=== PATIENT | male | born 1970 | race Caucasian/White ===

== ENCOUNTER 2018-03-07 23:34 | Inpatient (IN) | payer OTHER, MEDICARE ==
[~2018-03-07] VITALS: Ht 188 cm; Wt 104.8 kg
[2018-03-08 00:30] LABS: ABSOLUTE BASOPHIL COUNT 0 /CUMM (0.0-0.2); ABSOLUTE EOSINOPHIL COUNT 0.1 /CUMM (0.0-0.7); ABSOLUTE GRANULOCYTE CT 11.8 /CUMM (1.4-6.5); ABSOLUTE LYMPH COUNT 3.1 /CUMM (1.2-3.4); ABSOLUTE MONOCYTE COUNT 0.7 /CUMM (0.10-0.60); BASOPHIL % 0.2 % (0.0-2.0); EOSINOPHIL % 0.5 % (0-5); GRANULOCYTE % 75.3 % (42.2-75.2); HEMATOCRIT 40.1 % (42-52); MEAN CORPUSCULAR HGB 30.7 PG (27.0-31.0); MEAN CORPUSCULAR HGB CONC 33.2 G/DL (33.0-37.0); MEAN CORPUSCULAR VOLUME 92.5 FL (80.0-94.0); PLATELET COUNT 353 /CUMM (130-400); RED BLOOD CELL CT 4.34 /CUMM (4.70-6.10)
[2018-03-08 00:47] LABS: WHITE BLOOD CELL COUNT 15.7 /CUMM (4.8-10.8)
--- NOTE | 2018-03-08 01:06 | RADIOLOGY REPORT ---
EXAMINATION: CHEST 1 VIEW CLINICAL INFORMATION: Acidosis. Concern for pneumonia. COMPARISON: None. TECHNIQUE: An AP view of the chest is provided. FINDINGS: The cardiac silhouette is not enlarged. The mediastinal and hilar contours are unremarkable. There are neither pleural effusions nor pneumothoraces. There are no consolidations. The osseous structures are unremarkable. IMPRESSION: No evidence for acute disease.
--- NOTE | 2018-03-08 01:09 | History & Physical ---
Ahsan Alba 03/08/18 0109: General Information and HPI MD Statement: I have seen and personally examined ZINA ANTHONY and documented this H&P. The patient is a 47 year old M who presented with a patient stated chief complaint of NAUSEA, VOMITING, AND LOW BLOOD SUGAR. Source of Information: patient Exam Limitations: clinical condition, confusion History of Present Illness: 47-year-old male with past medical history of anxiety, depression, chronic pain, and type 1 diabetes presents with complaints of nausea, vomiting, diarrhea, and hyperglycemia for 1 day. Patient was in his normal state of health until Friday evening, when he endorses having a significant amount of [place] food, after which he was nauseous and vomiting. This continued on Friday, and he also experienced significant hyperglycemia. When he was unable to get his glucose level under control, he called 911 to be taken to the ED. The patient denies any recent cough, congestion, fevers, chills, or any other illness. Denies sick contacts, recent antibiotics, or hospitalizations. Patient also states that his abdomen has been expanding quite rapidly, beginning around 6 to 8 months ago, and that he has an upcoming endoscopy and colonoscopy to explore the cause. In the ED, patient was found to have significantly elevated glucose (>800), elevated K, UA positive for ketones, lactic acid of 6.1, and VBG ph of 6.95. He was admitted to the ICU for management of DKA. 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 Home Primary Language: Danish Smoking Status: Current Everyday Smoker ETOH Use: denies use Illicit Drug Use: denies illicit drug use Functional Ability ADLs Independent: dressing, eating, toileting, bathing. Ambulation: independent IADLs Independent: shopping, housework, finances, food prep, telephone, transportation , medication admin. Review of Systems Review of Systems Constitutional: Reports: see HPI. Denies: chills, diaphoresis, fever, malaise, weakness. EENTM: Reports: no symptoms. Cardiovascular: Reports: no symptoms. Respiratory: Reports: orthopnea, short of breath. Denies: cough. GI: Reports: abdominal pain, bloating, diarrhea, distention, nausea, vomiting. Denies: constipation. Genitourinary: Reports: no symptoms. Musculoskeletal: Reports: no symptoms. Skin: Reports: no symptoms. Neurological/Psychological: Reports: anxiety, depressed. Hematologic/Endocrine: Reports: polydipsia. Immunologic/Allergic: Reports: no symptoms. All Other Systems: Reviewed and Negative Exam & Diagnostic Data Last 24 Hrs of Vital Signs/I&O Vital Signs Date Time Temp Pulse Resp B/P B/P Pulse O2 O2 Flow FiO2 Mean Ox Delivery Rate 03/08 0335 97.7 122 22 104/62 97 Room Air 03/08 0236 96.8 111 22 112/58 98 Room Air 03/08 0137 96.7 110 18 105/55 98 Room Air 03/07 2350 96.7 90 22 168/116 100 Room Air Intake & Output 03/08 0800 03/08 0000 03/07 1600 Intake Total 4000 Output Total 300 Balance 3700 Intake, IV 4000 Output, Urine 300 Patient 232 lb Weight Weight Bed scale Measurement Method Physical Exam General Appearance Alert, Cooperative, Severe Distress Skin No Rashes, No Breakdown, No Significant Lesion Skin Temp/Moisture Exam: Warm/Dry HEENT Atraumatic, PERRLA, EOMI Neck Supple, No JVD, No thryomegaly Cardiovascular Regular Rate, Normal S1, Normal S2, No Murmurs, Gallops, Rubs Lungs Clear to Auscultation, Normal Air Movement Abdomen Soft, No Tenderness, No Hepatospenomegaly, No Masses Neurological Normal Speech, Normal Tone Extremities No Clubbing, No Cyanosis, No Edema Last 24 Hrs of Labs/Pino: Laboratory Tests 03/08/18 0510: Sodium Pending, Potassium Pending, Chloride Pending, Carbon Dioxide Pending, Anion Gap Pending, BUN Pending, Creatinine Pending, Glucose Pending, Lactic Acid Pending, Calcium Pending, Phosphorus Pending, Magnesium Pending, Total Bilirubin Pending, AST Pending, ALT Pending, Troponin I Pending, Albumin Pending, CBC w Diff Pending, WBC Pending, RBC Pending, Hgb Pending, Hct Pending, MCV Pending, MCH Pending, MCHC Pending, RDW Pending, Plt Count Pending, MPV Pending 03/08/18228: Lactic Acid 5.7 H 03/08/18228: Anion Gap 35.01473 H, Estimated GFR 46 L, Glucose 624 *H, Calcium 8.5, Phosphorus 11.1 H, Magnesium 2.3, Total Bilirubin 0.3, AST 40, ALT 64, Albumin 4.0, CBC w Diff MAN DIFF ORDERED, RBC 4.29 L, MCV 91.3, MCH 30.3, MCHC 33.2, RDW 13.6, MPV 9.3, Segmented Neutrophils 70, Band Neutrophils 7 H, Lymphocytes 20 L, Monocytes 3, Platelet Estimate ADEQUATE, Normocytic RBCs VERIFIED, Normochromic RBCs VERIFIED 03/08/18 0015: Urine Opiates Screen < 100, Methadone Screen > 735 H, Barbiturate Screen < 60, Ur Phencyclidine Scrn < 6.00, Amphetamines Screen < 100, U Benzodiazepines Scrn < 85, Urine Cocaine Screen < 50, Urine Cannabis Screen < 5.00, Urinalysis LIGHT H, Urine Color YEL, Urine Clarity CLEAR, Urine pH 6.0, Ur Specific [place] 1.025 , Urine Protein TRACE H, Urine Ketones >=80, Urine Nitrite NEG, Urine Bilirubin NEG@ICTO, Urine Urobilinogen 0.2, Ur Leukocyte Esterase NEG, Ur Microscopic SEDIMENT EXAMINED, Urine WBC 1-3 H, Urine Bacteria MOD H, Hyaline Casts RARE H, Urine Mucus FEW, Urine Hemoglobin SMALL H, Urine Glucose >=1000 H 03/08/18 0005: Bicarbonate Actual 4.7 L, Mixed VBG pH 6.95 L, Mixed VBG pCO2 22 L, Mixed VBG O2 Saturation 63 H, P-50 (Temp Corrected) N, Carboxyhemoglobin 0.8 L, O2 Concentration % RA, Temperature 98.6, Anion Gap 35 H, Estimated GFR 46 L, BUN/ Creatinine Ratio 18.1, Glucose 853 *H, Lactic Acid 6.1 H, Calcium 8.6, Phosphorus 12.4 H, Magnesium 2.4 H, Total Bilirubin 0.5, AST 42, ALT 69, Alkaline Phosphatase 497 H, Troponin I < 0.01, Total Protein 6.9, Albumin 4.3, Globulin 2.6, Albumin/Globulin Ratio 1.7, Lipase 27, PT 11.2, INR 1.03, APTT 29, CBC w Diff NO MAN DIFF REQ, RBC 4.34 L, MCV 92.5, MCH 30.7, MCHC 33.2, RDW 14.0 , MPV 9.0, Gran % 75.3 H, Lymphocytes % 19.9 L, Monocytes % 4.1, Eosinophils % 0.5, Basophils % 0.2, Absolute Granulocytes 11.8 H, Absolute Lymphocytes 3.1, Absolute Monocytes 0.7 H, Absolute Eosinophils 0.1, Absolute Basophils 0, Phlebotomy Draw Site RAC, Serum Alcohol < 10.0, Acetone Level POSITIVE AT 1:32 DIL Microbiology 03/08 526 STOOL: Cryptosporidium Antigen - ORD 03/08 526 STOOL: Giardia Antigen (PINO) - ORD 03/08 526 STOOL: Clostridium difficile Toxin A & B - ORD 03/08 526 STOOL: Stool Culture - ORD 03/08 417 BLOOD: Blood Culture - ORD 03/08 417 BLOOD: Blood Culture - ORD 03/08 345 UPPER RESP: Surveillance Culture - RECD 03/08 345 GI: Surveillance Culture - RECD 03/08 001 URINE ROUT: Urine Culture - RECD Diagnostic Data EKG Results Sinus rhythm, rate 96, prolonged QTc CXR Results No evidence for acute disease. Other Results CT abdomen/pelvis without contrast IMPRESSION: No evidence for acute abdominal or pelvic inflammatory or infectious processes. Small hiatal hernia. Hepatic steatosis. Assessment/Plan Assessment: 47-year-old male with past medical history of anxiety, depression, chronic pain, and type 1 diabetes presents with 1 day of nausea, vomiting hyperglycemia, admitted to [facility] for DKA, electrolyte abnormalities, and upper GI bleed Problem list/plan: DKA -Accu-Cheks every hour Upper GI bleed -Coffee-ground emesis witnessed in the ED coagulopathy Hyperkalemia -6.7 on presentation, given 1g Ca gluc in ED -Improved to 6.0 w/ volume resusc -Trend w/ hydration Elevated creatinine -1.6, uncertain baseline -Suspected prerenal causes from dehydration, dka -Place simms -strict I/O -Trend renal function -Avoid nephrotoxins Chronic conditions - anxiety/depression/chronic pain -Hold home medicines at this time DVT prophylaxis: ALPS only for gi bleed NPO currently Patient is full code As Ranked By This Provider Problem List: 1. DKA (diabetic ketoacidoses) 2. GI bleed Core Measures/Misc (04/06) Sepsis (View protocol) If YES complete Sepsis Event Note If YES complete Sepsis Event Note Raj Victoria MD 03/08/18 0618: General Information and HPI MD Statement: I have seen and personally examined ZINA ANTHONY and documented this H&P. The patient is a 47 year old M who presented with a patient stated chief complaint of nausea, vomiting, and hyperglycemia. Source of Information: patient Exam Limitations: clinical condition, poor historian History of Present Illness: 47 year old male with PMH of anxiety, depression, chronic pain, DM peripheral neuropathy, and type I diabetes presented with complaints of one day of nausea, vomiting, and diarrhea and hyperglycemia. The history is limited by the patient 's clinical condition. He reports one day history of nausea, vomiting, and diarrhea that he attributes to eating [place] food the night before. He also has associated abdominal pain and his vomiting progressed to coffee ground emesis overnight. He states he had six months of increasing abdominal distention and was scheduled for and EGD/colonoscopy as an outpatient. He says he only drinks a couple of shots on holidays but denies other singificant alcohol intake, although his family does report a history of alcohol abuse. He is a pack a day smoker. He lives by himself and just moved from [facility]. He also reports taking NSAIDs recently, approximately 2 pills daily for the past two weeks. His diabetes is managed by Clementina Gilbert at [facility]. He has an insulin pump that delivery 1unit/hr and gives a bolus based on carbohydrates, which he estimates is maybe 30 units per meal but is unsure. He has been admitted for diabetic ketoacidosis once before at [facility]. He sees a Dr. Stone @ [place] for his anxiety and depression and is prescribed buspar, ativan, valproic acid, and zoloft. He takes baclofen and methadone for chronic pain, which he says affects the entire lower half of his body. He comes to the ED in severe distress, tachypneic, diaphoretic, complaining of generalized but mostly abdominal pain with wretching and vomiting. In the ED, he was afebrile, tachycardic and hypertensive, saturating well on room air at presentation. His initial labs were significant for leukocytosis, lactic acidemia, elevated anion gap metabolic acidosis with an undetectable serum bicarbonate, hyperkalemia, hyponatremia, elevated BUN/creatinine, hypermagnesia, hyperphosphatemia, elevated alkaline phosphatase, and hyperglycemia to 850 with his insulin pump running at 1 unit per hour. His insulin pump was discontinued. He was treated with regular insulin IV 10 units x 2, 3L of NS boluses, 1 gram of IV calcium gluconate, reglan, zofran, and morphine. He had an urinalysis with >1000 glucose, 1-3 WBCs, negative nitrites, and negative leukocyte esterase , normal chest x-ray, and an abdominal CT only notable for mild perinephric stranding, with blood and urine cultures performed. He was admitted to critical care for diabetic ketoacidosis, electrolyte abnormalities, and upper GI bleed. Allergies/Medications Compliance With Home Meds: UNKNOWN Past History Medical History Neurological: peripheral neuropathy Psychiatric: anxiety, depression Endocrine: diabetes, diabetic ketoacidosis Surgical History Surgical History: non-contributory Past Family/Social History Family History Relations & Conditions if any Relation not specified for: *No pertinent family history Psychosocial History Where do you live? Home Primary Language: Danish Functional Ability ADLs Independent: dressing, eating, toileting, bathing. Ambulation: independent IADLs Independent: shopping, housework, finances, food prep, telephone, transportation , medication admin. Review of Systems Review of Systems Constitutional: Denies: chills, fever. EENTM: Reports: no symptoms. Cardiovascular: Denies: chest pain, palpitations. Respiratory: Denies: cough, sputum production. GI: Reports: abdominal pain, bloating, diarrhea, distention, nausea, vomiting ( hematemesis). Genitourinary: Denies: dysuria, frequency. Musculoskeletal: Reports: back pain, joint pain. Skin: Reports: no symptoms. Neurological/Psychological: Reports: anxiety, depressed. Hematologic/Endocrine: Reports: polydipsia. Immunologic/Allergic: Reports: no symptoms. All Other Systems: Reviewed and Negative Exam & Diagnostic Data Last 24 Hrs of Vital Signs/I&O Vital Signs Date Time Temp Pulse Resp B/P B/P Pulse O2 O2 Flow FiO2 Mean Ox Delivery Rate 03/08 0335 97.7 122 22 104/62 97 Room Air 03/08 0236 96.8 111 22 112/58 98 Room Air 03/08 0137 96.7 110 18 105/55 98 Room Air 03/07 2350 96.7 90 22 168/116 100 Room Air Intake & Output 03/08 0800 03/08 0000 03/07 1600 Intake Total 7566 Output Total 1100 Balance 6466 Intake, IV 7566 Output, 150 Emesis Output, Urine 950 Patient 105.233 kg Weight Weight Bed scale Measurement Method Physical Exam General Appearance Alert, Cooperative, Severe Distress Skin No Rashes, No Breakdown, No Significant Lesion HEENT Atraumatic, PERRLA, EOMI, dry mucous membranes Cardiovascular Normal S1, Normal S2, No Murmurs, tachycardic Lungs Clear to Auscultation, Normal Air Movement Abdomen Normal Bowel Sounds, Soft, distended, guarding on physical exam, diffusely tender to palpation Neurological nonfocal Extremities No Clubbing, No Cyanosis, No Edema, Normal Pulses Last 24 Hrs of Labs/Pino: Laboratory Tests 03/08/18 0510: Sodium Pending, Potassium Pending, Chloride Pending, Carbon Dioxide Pending, Anion Gap Pending, BUN Pending, Creatinine Pending, Glucose Pending, Lactic Acid Pending, Calcium Pending, Phosphorus Pending, Magnesium Pending, Total Bilirubin Pending, AST Pending, ALT Pending, Troponin I < 0.01, Albumin Pending, CBC w Diff NO MAN DIFF REQ, RBC 4.02 L, MCV 88.7, MCH 30.5, MCHC 34.4, RDW 13.6, MPV 8.8, Gran % 81.2 H, Lymphocytes % 15.1 L, Monocytes % 3.2, Eosinophils % 0, Basophils % 0.5, Absolute Granulocytes 10.9 H, Absolute Lymphocytes 2.0, Absolute Monocytes 0.4, Absolute Eosinophils 0, Absolute Basophils 0.1 03/08/18228: Lactic Acid 5.7 H 03/08/18228: Anion Gap 35.95293 H, Estimated GFR 46 L, Glucose 624 *H, Calcium 8.5, Phosphorus 11.1 H, Magnesium 2.3, Total Bilirubin 0.3, AST 40, ALT 64, Albumin 4.0, CBC w Diff MAN DIFF ORDERED, RBC 4.29 L, MCV 91.3, MCH 30.3, MCHC 33.2, RDW 13.6, MPV 9.3, Segmented Neutrophils 70, Band Neutrophils 7 H, Lymphocytes 20 L, Monocytes 3, Platelet Estimate ADEQUATE, Normocytic RBCs VERIFIED, Normochromic RBCs VERIFIED 03/08/18 0015: Urine Opiates Screen < 100, Methadone Screen > 735 H, Barbiturate Screen < 60, Ur Phencyclidine Scrn < 6.00, Amphetamines Screen < 100, U Benzodiazepines Scrn < 85, Urine Cocaine Screen < 50, Urine Cannabis Screen < 5.00, Urinalysis LIGHT H, Urine Color YEL, Urine Clarity CLEAR, Urine pH 6.0, Ur Specific [place] 1.025 , Urine Protein TRACE H, Urine Ketones >=80, Urine Nitrite NEG, Urine Bilirubin NEG@ICTO, Urine Urobilinogen 0.2, Ur Leukocyte Esterase NEG, Ur Microscopic SEDIMENT EXAMINED, Urine WBC 1-3 H, Urine Bacteria MOD H, Hyaline Casts RARE H, Urine Mucus FEW, Urine Hemoglobin SMALL H, Urine Glucose >=1000 H 03/08/18 0005: Bicarbonate Actual 4.7 L, Mixed VBG pH 6.95 L, Mixed VBG pCO2 22 L, Mixed VBG O2 Saturation 63 H, P-50 (Temp Corrected) N, Carboxyhemoglobin 0.8 L, O2 Concentration % RA, Temperature 98.6, Anion Gap 35 H, Estimated GFR 46 L, BUN/ Creatinine Ratio 18.1, Glucose 853 *H, Lactic Acid 6.1 H, Calcium 8.6, Phosphorus 12.4 H, Magnesium 2.4 H, Total Bilirubin 0.5, AST 42, ALT 69, Alkaline Phosphatase 497 H, Troponin I < 0.01, Total Protein 6.9, Albumin 4.3, Globulin 2.6, Albumin/Globulin Ratio 1.7, Lipase 27, PT 11.2, INR 1.03, APTT 29, CBC w Diff NO MAN DIFF REQ, RBC 4.34 L, MCV 92.5, MCH 30.7, MCHC 33.2, RDW 14.0 , MPV 9.0, Gran % 75.3 H, Lymphocytes % 19.9 L, Monocytes % 4.1, Eosinophils % 0.5, Basophils % 0.2, Absolute Granulocytes 11.8 H, Absolute Lymphocytes 3.1, Absolute Monocytes 0.7 H, Absolute Eosinophils 0.1, Absolute Basophils 0, Phlebotomy Draw Site RAC, Serum Alcohol < 10.0, Acetone Level POSITIVE AT 1:32 DIL Microbiology 03/08 06 URINE ROUT: Urine Culture - CAN Cancelled: Cancelled via OE: DUPLICATE 03/08 603 URINE ROUT: Urine Culture - ORD 03/08 526 STOOL: Cryptosporidium Antigen - ORD 03/08 526 STOOL: Giardia Antigen (PINO) - ORD 03/08 526 STOOL: Clostridium difficile Toxin A & B - ORD 03/08 526 STOOL: Stool Culture - ORD 03/08 417 BLOOD: Blood Culture - ORD 03/08 417 BLOOD: Blood Culture - ORD 03/08 345 UPPER RESP: Surveillance Culture - RECD 03/08 345 GI: Surveillance Culture - RECD 03/08 15 URINE ROUT: Urine Culture - RECD Diagnostic Data EKG Results sinus tachycardia, RAD, no acute ischemic changes CXR Results The cardiac silhouette is not enlarged. The mediastinal and hilar contours are unremarkable. There are neither pleural effusions nor pneumothoraces. There are no consolidations. The osseous structures are unremarkable. IMPRESSION: No evidence for acute disease. Other Results CT abdomen/pelvis without contrast IMPRESSION: No evidence for acute abdominal or pelvic inflammatory or infectious processes. Small hiatal hernia. Hepatic steatosis. Assessment/Plan Assessment: 47 year old male with PMH of anxiety, depression, chronic pain, and type I diabetes presented with complaints of one day of nausea, vomiting, and diarrhea and hyperglycemia, admitted to critical for DKA, electrolyte abormalities, and upper GI bleed. DKA: Serum glucose 850 on presentation, serum bicarbonate undetectable, VBG pH 6.95 Positive acetone, negative for alcohol, anion gap of 35, Intravascular volume resuscitation with crystalloid Received regular insulin 10 units IV x 2 and started on insulin gtt Admit to ICU Accuchecks Q1H Insulin gtt currently at 20 units per hour, patient's home insulin pump discontinued Endocrinology consulted Leukocytosis peaked at 17,00 but now improving to 13,400 off antibiotics No clear source of infection at this time for DKA trigger Urinalysis 1-3 WBCs, negative nitrites and leukocyte esterase, > 1000 glucose Follow up blood and urine cultures Check C diff and stool studies if diarrhea recurrs Chest x-ray and abdominal CT unrevealing Upper GI bleed: Several hundred cc's of witness coffee ground emesis in the ED Possibly peptic ulcer disease with NSAID use, possible varices with EtOH although no stigmata or laboratory evidence consistent with cirrhotic liver disease IV PPI BID No transaminitis, thrombocytopenia or coagulapathy Type and screen Large bore peripheral IV access Gastroenterology consulted Hemoglobin mildly decreased to 13, will continue to trend Ceftriaxone IV 1g x 1 dose Elevated creatinine: Creatinine elevated to 1.6, uncertain baseline Suspected to be prerenal with severe dehydration from DKA Place Simms catheter, Strict I/O's Aggressive intravascular volume resuscitation with crystalloid Obtain urine electrolytes and FeNa Trend renal function Avoid nephrotoxins Elevated anion gap metabolic acidosis and electrolyte abnormalities: Detectable acetone c/w DKA and undetectable bicarbonate, VBG pH 6.95 Tachypneic with compensatory respiratory alkalosis from metabolic acidosis, check ABG Lactic acidemia 6.1 on presentation, improved after intravascular volume resuscitation Thought to be secondary to hypovolemia not sepsis Hyperkalemia: Elevated to 6.7 on presentation, given 1g calcium gluconate in the ED Improved to 6.0 after intravascular volume resuscitation Continue to trend with hydration Pseudohyponatremia: Sodium depressed to 127 with glucose of 850, now improved to 137 with glucose improvement and crystalloid administration Hyperphosphatemia/Hypermagnesia: Will continue to monitor Elevated alkaline phosphatase: Normal CT abdomen pelvis, no abnormalities in biliary system LFTs and bilirubin within normal limits Consider RUQ ultrasound Anxiety/Depression: Hold zoloft, buspar, valproic acid, and lorazepam for now Chronic pain: Hold methadone and baclofen Urine toxicology negative other than methadone Monitor for withdrawal from baclofen, methadone, and lorazepam NPO DVT ppx-mechanical ALPs only for GI bleed Full code As Ranked By This Provider Problem List: 1. GI bleed 2. DKA (diabetic ketoacidoses) Core Measures/Misc (04/06) Acute Coronary Syndrome ACS Diagnosis: No Congestive Heart Failure Congestive Heart Failure Diagnosis No Cerebrovascular Accident CVA/TIA Diagnosis: No VTE (View Protocol) VTE Risk Factors Age>40 No Mechanical VTE Prophylaxis d/t N/A MechProphylax Ordered No VTE Pharm Prophylaxis d/t Bleeding (Active) Sepsis (View protocol) Sepsis Present: No If YES complete Sepsis Event Note If YES complete Sepsis Event Note Rehan Liz MD 03/08/18 0066: General Information and HPI Statement: I have seen and personally examined ZINA ANTHONY and documented this H&P. The patient is a 47 year old M who presented with a patient stated chief complaint of []. Source of Information: patient Exam Limitations: clinical condition, poor historian Allergies/Medications Home Med list Baclofen 10 MG TABLET 1 TAB PO TID PAIN (Reported) Buspirone HCl 30 MG TABLET 1 TAB PO BID PSYCH (Reported) Insulin Aspart (Novolog) 100 UNIT/ML VIAL 1 UNIT SC CONTINOUS INFUSION DM1 ( Reported) Lorazepam (Ativan) 0.5 MG TABLET 1 TAB PO BIDP PRN ANXIETY (Reported) Methadone Hydrochloride (Methadone HCl) 10 MG TABLET 3.5 TAB PO DAILY PAIN ( Reported) Sertraline HCl (Zoloft) 100 MG TABLET 1.5 TAB PO DAILY DEPRESSION (Reported) Valproic Acid 250 MG CAPSULE 2 TAB PO TID PSYCH (Reported) Compliance With Home Meds: UNKNOWN Past History Medical History Psychiatric: anxiety, depression Endocrine: diabetes, diabetic ketoacidosis Past Family/Social History Psychosocial History Smoking Status: Current Everyday Smoker ETOH Use: denies use Illicit Drug Use: denies illicit drug use Review of Systems Review of Systems Constitutional: Reports: see HPI. Exam & Diagnostic Data Last 24 Hrs of Vital Signs/I&O Vital Signs Date Time Temp Pulse Resp B/P B/P Pulse O2 O2 Flow FiO2 Mean Ox Delivery Rate 03/08 0335 97.7 122 22 104/62 97 Room Air 03/08 0236 96.8 111 22 112/58 98 Room Air 03/08 0137 96.7 110 18 105/55 98 Room Air 03/07 2350 96.7 90 22 168/116 100 Room Air Intake & Output 03/08 0800 03/08 0000 03/07 1600 Intake Total 7566 Output Total 1100 Balance 6466 Intake, IV 7566 Output, 150 Emesis Output, Urine 950 Patient 232 lb Weight Weight Bed scale Measurement Method Physical Exam General Appearance Alert, Cooperative, Severe Distress Skin No Rashes, No Breakdown, No Significant Lesion Skin Temp/Moisture Exam: Warm/Dry Sepsis Skin Exam (color): Normal for Ethnicity HEENT Atraumatic, PERRLA, EOMI, dry mucous membranes Neck Supple, No JVD, No thryomegaly Lymphatic Axillary nl, Cervical nl Cardiovascular Regular Rate, Normal S1, Normal S2, No Murmurs, tachycardic Lungs Clear to Auscultation, Normal Air Movement Abdomen Normal Bowel Sounds, Soft, distended, guarding on physical exam, diffusely tender to palpation Neurological nonfocal Extremities No Clubbing, No Cyanosis, No Edema, Normal Pulses Sepsis Peripheral Pulse Location: Dorsalis Pedis Sepsis Peripheral Pulse Exam: Normal Sepsis Cap Refill Exam: <2 Sec Last 24 Hrs of Labs/Pino: Laboratory Tests 03/08/18 0510: Anion Gap 27 H, Estimated GFR 50 L, Glucose 399 H, Lactic Acid 3.7 H, Calcium 8.1 L, Phosphorus 6.8 H, Magnesium 2.4 H, Total Bilirubin 0.4, AST 36 , ALT 56, Troponin I < 0.01, Albumin 3.7, CBC w Diff NO MAN DIFF REQ, RBC 4.02 L, MCV 88.7, MCH 30.5, MCHC 34.4, RDW 13.6, MPV 8.8, Gran % 81.2 H, Lymphocytes % 15.1 L, Monocytes % 3.2, Eosinophils % 0, Basophils % 0.5, Absolute Granulocytes 10.9 H, Absolute Lymphocytes 2.0, Absolute Monocytes 0.4, Absolute Eosinophils 0, Absolute Basophils 0.1 03/08/18228: Lactic Acid 5.7 H 03/08/18228: Anion Gap 35.68608 H, Estimated GFR 46 L, Glucose 624 *H, Calcium 8.5, Phosphorus 11.1 H, Magnesium 2.3, Total Bilirubin 0.3, AST 40, ALT 64, Albumin 4.0, CBC w Diff MAN DIFF ORDERED, RBC 4.29 L, MCV 91.3, MCH 30.3, MCHC 33.2, RDW 13.6, MPV 9.3, Segmented Neutrophils 70, Band Neutrophils 7 H, Lymphocytes 20 L, Monocytes 3, Platelet Estimate ADEQUATE, Normocytic RBCs VERIFIED, Normochromic RBCs VERIFIED 03/08/18 0015: Urine Opiates Screen < 100, Methadone Screen > 735 H, Barbiturate Screen < 60, Ur Phencyclidine Scrn < 6.00, Amphetamines Screen < 100, U Benzodiazepines Scrn < 85, Urine Cocaine Screen < 50, Urine Cannabis Screen < 5.00, Urinalysis LIGHT H, Urine Color YEL, Urine Clarity CLEAR, Urine pH 6.0, Ur Specific [place] 1.025 , Urine Protein TRACE H, Urine Ketones >=80, Urine Nitrite NEG, Urine Bilirubin NEG@ICTO, Urine Urobilinogen 0.2, Ur Leukocyte Esterase NEG, Ur Microscopic SEDIMENT EXAMINED, Urine WBC 1-3 H, Urine Bacteria MOD H, Hyaline Casts RARE H, Urine Mucus FEW, Urine Hemoglobin SMALL H, Urine Glucose >=1000 H 03/08/18 0005: Bicarbonate Actual 4.7 L, Mixed VBG pH 6.95 L, Mixed VBG pCO2 22 L, Mixed VBG O2 Saturation 63 H, P-50 (Temp Corrected) N, Carboxyhemoglobin 0.8 L, O2 Concentration % RA, Temperature 98.6, Anion Gap 35 H, Estimated GFR 46 L, BUN/ Creatinine Ratio 18.1, Glucose 853 *H, Lactic Acid 6.1 H, Calcium 8.6, Phosphorus 12.4 H, Magnesium 2.4 H, Total Bilirubin 0.5, AST 42, ALT 69, Alkaline Phosphatase 497 H, Troponin I < 0.01, Total Protein 6.9, Albumin 4.3, Globulin 2.6, Albumin/Globulin Ratio 1.7, Lipase 27, PT 11.2, INR 1.03, APTT 29, CBC w Diff NO MAN DIFF REQ, RBC 4.34 L, MCV 92.5, MCH 30.7, MCHC 33.2, RDW 14.0 , MPV 9.0, Gran % 75.3 H, Lymphocytes % 19.9 L, Monocytes % 4.1, Eosinophils % 0.5, Basophils % 0.2, Absolute Granulocytes 11.8 H, Absolute Lymphocytes 3.1, Absolute Monocytes 0.7 H, Absolute Eosinophils 0.1, Absolute Basophils 0, Phlebotomy Draw Site RAC, Serum Alcohol < 10.0, Acetone Level POSITIVE AT 1:32 DIL Microbiology 03/08 615 URINE ROUT: Urine Culture - RECD 03/08 612 URINE ROUT: Urine Culture - CAN Cancelled: Cancelled via OE: DUPLICATE 03/08 526 STOOL: Cryptosporidium Antigen - ORD 03/08 526 STOOL: Giardia Antigen (PINO) - ORD 03/08 526 STOOL: Clostridium difficile Toxin A & B - ORD 03/08 526 STOOL: Stool Culture - ORD 03/08 417 BLOOD: Blood Culture - ORD 03/08 417 BLOOD: Blood Culture - ORD 03/08 345 UPPER RESP: Surveillance Culture - RECD 03/08 345 GI: Surveillance Culture - RECD 03/08 15 URINE ROUT: Urine Culture - RECD Core Measures/Misc (04/06) Sepsis (View protocol) If YES complete Sepsis Event Note If YES complete Sepsis Event Note Attending MD Review Statement Attending Statement Attending MD Statement: examined this patient, discuss w/resident/PA/TECHNICAL DEVELOPER, agreed w/resident/PA/TECHNICAL DEVELOPER, reviewed EMR data (avail), discussed with nursing Attending Assessment/Plan: This patient is a 47-year-old male with a significant past medical history for anxiety, depression, chronic pain, and type 1 diabetes presents with complaints of nausea, vomiting, diarrhea, and hyperglycemia for 1 day. The patient was in his normal state of health until 1 day prior to admission, when after eating [place] food he developed nauseous and vomiting. This continued on the day of admission and he also noted significant hyperglycemia. When he was unable to get his glucose level under control, he called 911 to be taken to the ED. Patient also states that his abdomen has been expanding quite rapidly, beginning around 6 to 8 months ago, and that he has an upcoming endoscopy and colonoscopy to explore the cause. While in the emergency department the patient was found to be slightly hypothermic 96.7, tachycardic ~110, Tachpneic 20s, and slightly hypotensive 100s over 50s, satting at 98% on room air. His initial labs demonstrated leukocytosis 15.7 with a bandemia, INR 1.03, urine with significant glucose, hyponatremia 127, hyper kalemia 6.7, carbon dioxide less than 5, anion gap 35, BUN 29/creatinine 1.6, glucose 853, lactic acid 6.1, alkaline phosphatase 497, cultures pending, chest x-ray no acute disease, CT abdomen and pelvisno acute abdominal or pelvic inflammatory infectious process, noted to vomit a few ground emesis in the ED. Patient will be admitted to the intensive care unit for diabetic ketoacidosis. Intravascular volume resuscitation and insulin drip, Accu-Cheks every one hour, replete electrolytes, no clear source of infection or etiology, endocrine consult and critical care consult. Full code
[2018-03-08 01:17] LABS: PT 11.2 SEC (9.4-12.5); PTT 29 SEC (25-37)
--- NOTE | 2018-03-08 01:17 | ED GENERAL ADULT ---
History of Present Illness General Chief Complaint: Nausea, Vomiting, Diarrhea Stated Complaint: VOMITING, ELEVATED BS Source: patient Exam Limitations: actively vomiting/dry heaving, difficulty speaking Vital Signs & Intake/Output Vital Signs & Intake/Output Vital Signs Date Time Temp Pulse Resp B/P B/P Pulse O2 O2 Flow FiO2 Mean Ox Delivery Rate 03/08 0335 97.7 122 22 104/62 97 Room Air 03/08 0236 96.8 111 22 112/58 98 Room Air 03/08 0137 96.7 110 18 105/55 98 Room Air 03/07 2350 96.7 90 22 168/116 100 Room Air Allergies Coded Allergies: No Known Allergies (03/07/18) Reconcile Medications Baclofen 10 MG TABLET 1 TAB PO TID PAIN (Reported) Buspirone HCl 30 MG TABLET 1 TAB PO BID PSYCH (Reported) Insulin Aspart (Novolog) 100 UNIT/ML VIAL 1 UNIT SC CONTINOUS INFUSION DM1 ( Reported) Lorazepam (Ativan) 0.5 MG TABLET 1 TAB PO BIDP PRN ANXIETY (Reported) Methadone Hydrochloride (Methadone HCl) 10 MG TABLET 3.5 TAB PO DAILY PAIN ( Reported) Sertraline HCl (Zoloft) 100 MG TABLET 1.5 TAB PO DAILY DEPRESSION (Reported) Valproic Acid 250 MG CAPSULE 2 TAB PO TID PSYCH (Reported) Triage Note: PT BIBA FROM HOME WITH C/O N/V X2 DAYS. PT IS TYPE 1 DIABETIC WITH INSULIN PUMP. BS >500 AT THIS TIME. PT ARRIVES WITH FLUID BOLUS INFUSING AND ACTIVELY VOMITING Triage Nurses Notes Reviewed? yes Onset: Gradual Duration: day(s): Timing: constant HPI: 47-year-old male with a history of type 1 diabetes (insulin via pump) presenting with nausea and vomiting times 2 days in the setting of eating [place] food. Patient states that after he ate the [place] food he developed the nausea and vomiting a few hours later, and has now had difficulty controlling his blood sugars over the past 2 days. Dates that each time he checked his glucose it was high, despite giving himself multiple insulin boluses. Endorses associated diffuse abdominal pain. Patient also notes that his emesis has become bloody over the last 1-2 hours. Denies fevers, URI symptoms, cough, chest pain, shortness of breath, diarrhea, dysuria, melena, hematochezia. Past History Travel History Traveled to [place] past 21 day No Medical History Any Pertinent Medical History? see below for history Neurological: NONE EENT: NONE Cardiovascular: NONE Respiratory: NONE Gastrointestinal: NONE Hepatic: NONE Renal: NONE Musculoskeletal: NONE Psychiatric: NONE Endocrine: diabetes Blood Disorders: NONE Cancer(s): NONE ASSOCIATE DEAN OF STUDENTS/Reproductive: NONE Surgical History Surgical History: non-contributory Psychosocial History What is your primary language Indonesian Tobacco Use: Current Daily Use Daily Tobacco Use Amount/Type: => 5 Cigarettes daily ETOH Use: denies use Illicit Drug Use: denies illicit drug use Family History Hx Contributory? No Review of Systems Review of Systems Constitutional: Reports: no symptoms. EENTM: Reports: no symptoms. Respiratory: Reports: no symptoms. Cardiovascular: Reports: no symptoms. GI: Reports: see HPI. Genitourinary: Reports: no symptoms. Musculoskeletal: Reports: no symptoms. Skin: Reports: no symptoms. Neurological/Psychological: Reports: no symptoms. Hematologic/Endocrine: Reports: no symptoms. Immunologic/Allergic: Reports: no symptoms. All Other Systems: Reviewed and Negative Physical Exam Physical Exam General Appearance: well developed/nourished, alert, awake, severe distress, actively vomiting Comments: Gen.: Significant distress, rolling around on the stretcher, actively vomiting Head: Normocephalic, atraumatic. Eyes: Normal inspection bilaterally Ears: Normal inspection bilaterally Nose: Normal inspection Neck: Normal inspection Lungs: clear to auscultation bilaterally, normnal breath sounds, hyper ventilations with a rate in the mid 20s Heart: Regular rhythm, tachycardic with a rate to the low 100s Abdomen: soft, nondistended, normal bowel sounds, diffuse nonfocal tenderness with no rebound or guarding Extremities: Normal inspection Neurologic: alert and oriented x3 Skin: warm and dry Psychiatric: Normal mood and affect, no apparent delusions or hallucinations, behavior appropriate Core Measures ACS in differential dx? No CVA/TIA Diagnosis: No Sepsis Present: No Sepsis Focused Exam Completed? No Progress Differential Diagnoses I considered the following diagnoses in my evaluation of the patient: [ Hyperglycemia versus DKA versus HHS versus gastroenteritis versus sepsis versus acute abdomen] Plan of Care: Orders Procedure Date/time Status Nothing by Mouth 03/08 B Active ICU LAB BUNDLE 03/08 1200 Active CBC WITHOUT DIFFERENTIAL 03/08 1200 Active LACTIC ACID 03/08 1123 Active LACTIC ACID 03/08 0823 Complete ICU LAB BUNDLE 03/08 0823 Complete URINE LYTES, SPOT 03/08 0652 Active ARTERIAL BLOOD GAS (GEN) 03/08 0648 Complete CULTURE,URINE 03/08 0603 Active CULTURE,STOOL 03/08 0526 Active OVA AND PARASITE ANTIGENS 03/08 0526 Active C.DIFFICILE 03/08 0526 Active GLYCOSYLATED HGB 03/08 0510 Active TROPONIN LEVEL 03/08 0500 Active LACTIC ACID 03/08 0500 Active ICU LAB BUNDLE 03/08 0500 Active CBC WITHOUT DIFFERENTIAL 03/08 0500 Complete EKG 03/08 0500 Active Wound Care/Dressing 03/08 0423 Complete Weight 03/08 0423 Active VTE Mechanical Prophylaxis 03/08 0423 Active Vital Signs 03/08 0423 Active Turn and Reposition 03/08 0423 Active Drains/Tubes 03/08 0423 Complete Teach/Educate 03/08 0423 Active Skin Integrity Protocol 03/08 0423 Active Skin/Pressure Ulcer Assess (Sk 03/08 0423 Active Precautions 03/08 0423 Active Pain Treatment and Response 03/08 0423 Active Nutritional Intake, Monitor 03/08 0423 Active Isolation 03/08 0423 Active CIWA 03/08 0423 Complete Patient Care Conference 03/08 0423 Active Activity/Ambulation 03/08 0423 Active BLOOD CULTURE 03/08 0417 Active VRE ACTIVE SURVIELLANCE 03/08 0300 Active ACTIVE SURVEILLANCE NARES 03/08 0300 Active LACTIC ACID 03/08 0238 Complete ICU LAB BUNDLE 03/08 0229 Complete AMYLASE 03/08 0229 Complete Pathway - chart 03/08 0223 Active House Staff 03/08 0223 Active Code Status 03/08 0223 Active Intake & Output 03/08 0220 Active CBC WITHOUT DIFFERENTIAL 03/08 0150 Complete TYPE & SCREEN (NOT X-MATCH) 03/08 0150 Complete FingerStick- Glucose 03/08 0113 Complete Patient Data 03/08 0043 Active Admit to inpatient 03/08 0040 Active Add-on Test (ER Only) 03/08 0032 Active CULTURE,URINE 03/08 0015 Active URINE DRUGS OF ABUSE 03/08 0015 Complete PARTIAL THROMBOPLASTIN TIME 03/08 0005 Complete PROTHROMBIN TIME 03/08 0005 Complete ETHANOL 03/08 0005 Complete ACETONE 03/08 0005 Complete MIXED VENOUS BLOOD GAS (GEN) 03/08 UNK Active Lab Add-on Test 03/08 UNK Active VTE Mechanical Prophylaxis 03/08 UNK Active Vital Signs 03/08 UNK Active Intake & Output 03/08 UNK Complete Hemoccult 03/08 UNK Active FingerStick- Glucose 03/08 UNK Active [place], Insertion/Removal/Asses 03/08 UNK Active Activity/Ambulation 03/08 UNK Active MIXED VENOUS BLOOD GAS (GEN) 03/07 2338 Complete URINALYSIS 03/07 2338 Complete TROPONIN LEVEL 03/07 2338 Complete PHOSPHORUS 03/07 2338 Complete MAGNESIUM 03/07 2338 Complete LIPASE 03/07 2338 Complete LACTIC ACID 03/07 2338 Complete COMPREHENSIVE METABOLIC PANEL 03/07 2338 Complete CBC WITHOUT DIFFERENTIAL 03/07 2338 Complete EKG 03/07 2338 Active Current Medications Sig/Ami Start time Last Medication Dose Stop Time Status Admin Heparin Sodium 5,000 UNIT Q8 03/08 1400 AC (Porcine) Insulin Human Regular 100 UNIT Q5H 03/08 1300 AC (Novolin R (Insulin Drip)) Sodium Chloride 100 ML (Normal Saline 0.9%) Potassium Chloride 40 MEQ Q6H 03/08 1115 AC 03/08 (KCl 40MEQ in D5W 1/ 1125 2NS 1000ml) Dextrose/Sodium 1,000 ML Chloride (D5W-1/2 Normal Saline 1000ML) Potassium Chloride 40 MEQ CONTINOUS INFUSION 03/08 1030 CAN (KCl 40MEQ in D5W 1/ 2NS 1000ml) Pantoprazole Sodium 40 MG BID 03/08 0400 AC 03/08 (Protonix) 0822 Ondansetron HCl 4 MG Q6P PRN 03/08 0345 AC 03/08 (Zofran) 1127 Insulin Human Regular 100 UNIT Q24H 03/08 0200 AC 03/08 (Novolin R (Insulin 03/08 1259 0247 Drip)) Sodium Chloride 100 ML (Normal Saline 0.9%) Laboratory Tests 03/08/18 0930: Anion Gap 13, Estimated GFR > 60, Glucose 164 H, Lactic Acid 2.1, Calcium 7.4 L, Phosphorus 1.3 L, Magnesium 1.7, Total Bilirubin 0.2, AST 28, ALT 53, Albumin 3.1 L 03/08/18 0840: pH 7.32 L, pCO2 27 L, pO2 83, HCO3 14 L, ABG O2 Sat (Measured) 96.0, P-50 ( Temp Corrected) N, Carboxyhemoglobin 0.2 L, O2 Concentration % .21, Temperature 97.7, O2 Delivery Method RA, Phlebotomy Draw Site RIGHT RADIAL 03/08/18 0510: Anion Gap 27 H, Estimated GFR 50 L, Glucose 399 H, Hemoglobin A1c Pending, Lactic Acid 3.7 H, Calcium 8.1 L, Phosphorus 6.8 H, Magnesium 2.4 H, Total Bilirubin 0.4, AST 36, ALT 56, Troponin I < 0.01, Albumin 3.7, CBC w Diff NO MAN DIFF REQ, RBC 4.02 L, MCV 88.7, MCH 30.5, MCHC 34.4, RDW 13.6, MPV 8.8, Gran % 81.2 H, Lymphocytes % 15.1 L, Monocytes % 3.2, Eosinophils % 0, Basophils % 0.5, Absolute Granulocytes 10.9 H, Absolute Lymphocytes 2.0, Absolute Monocytes 0.4, Absolute Eosinophils 0, Absolute Basophils 0.1 03/08/18228: Lactic Acid 5.7 H 03/08/18 0229: Anion Gap 35.74573 H, Estimated GFR 46 L, Glucose 624 *H, Calcium 8.5, Phosphorus 11.1 H, Magnesium 2.3, Total Bilirubin 0.3, AST 40, ALT 64, Albumin 4.0, Amylase 76, CBC w Diff MAN DIFF ORDERED, RBC 4.29 L, MCV 91.3, MCH 30.3, MCHC 33.2, RDW 13.6, MPV 9.3, Segmented Neutrophils 70, Band Neutrophils 7 H, Lymphocytes 20 L, Monocytes 3, Platelet Estimate ADEQUATE, Normocytic RBCs VERIFIED, Normochromic RBCs VERIFIED 03/08/18 0015: Urine Opiates Screen < 100, Methadone Screen > 735 H, Barbiturate Screen < 60, Ur Phencyclidine Scrn < 6.00, Amphetamines Screen < 100, U Benzodiazepines Scrn < 85, Urine Cocaine Screen < 50, Urine Cannabis Screen < 5.00, Urinalysis LIGHT H, Urine Color YEL, Urine Clarity CLEAR, Urine pH 6.0, Ur Specific [place] 1.025 , Urine Protein TRACE H, Urine Ketones >=80, Urine Nitrite NEG, Urine Bilirubin NEG@ICTO, Urine Urobilinogen 0.2, Ur Leukocyte Esterase NEG, Ur Microscopic SEDIMENT EXAMINED, Urine WBC 1-3 H, Urine Bacteria MOD H, Hyaline Casts RARE H, Urine Mucus FEW, Urine Hemoglobin SMALL H, Urine Glucose >=1000 H 03/08/18 0005: Bicarbonate Actual 4.7 L, Mixed VBG pH 6.95 L, Mixed VBG pCO2 22 L, Mixed VBG O2 Saturation 63 H, P-50 (Temp Corrected) N, Carboxyhemoglobin 0.8 L, O2 Concentration % RA, Temperature 98.6, Anion Gap 35 H, Estimated GFR 46 L, BUN/ Creatinine Ratio 18.1, Glucose 853 *H, Lactic Acid 6.1 H, Calcium 8.6, Phosphorus 12.4 H, Magnesium 2.4 H, Total Bilirubin 0.5, AST 42, ALT 69, Alkaline Phosphatase 497 H, Troponin I < 0.01, Total Protein 6.9, Albumin 4.3, Globulin 2.6, Albumin/Globulin Ratio 1.7, Lipase 27, PT 11.2, INR 1.03, APTT 29, CBC w Diff NO MAN DIFF REQ, RBC 4.34 L, MCV 92.5, MCH 30.7, MCHC 33.2, RDW 14.0 , MPV 9.0, Gran % 75.3 H, Lymphocytes % 19.9 L, Monocytes % 4.1, Eosinophils % 0.5, Basophils % 0.2, Absolute Granulocytes 11.8 H, Absolute Lymphocytes 3.1, Absolute Monocytes 0.7 H, Absolute Eosinophils 0.1, Absolute Basophils 0, Phlebotomy Draw Site RAC, Serum Alcohol < 10.0, Acetone Level POSITIVE AT 1:32 DIL Microbiology 03/08 615 URINE ROUT: Urine Culture - RECD 03/08 612 URINE ROUT: Urine Culture - CAN Cancelled: Cancelled via OE: DUPLICATE 03/08 526 STOOL: Cryptosporidium Antigen - ORD 03/08 526 STOOL: Giardia Antigen ([place]) - ORD 03/08 526 STOOL: Clostridium difficile Toxin A & B - ORD 03/08 526 STOOL: Stool Culture - ORD 03/08 417 BLOOD: Blood Culture - ORD 03/08 417 BLOOD: Blood Culture - ORD 03/08 345 UPPER RESP: Surveillance Culture - RECD 03/08 345 GI: Surveillance Culture - RECD 03/08 15 URINE ROUT: Urine Culture - RECD Labs are consistent with DKA. Patient's glucose is greater than 800, pH 6.95, bicarb less than 5, elevated anion gap, urine ketones greater than 80. His potassium was 6.7, no hyperkalemic EKG changes. Patient was given 3 L of normal saline, 2 insulin boluses, insulin drip, bicarb bolus, bicarb drip, and calcium gluconate in the emergency department. He will be admitted to ICU for further management of his DKA. Discussed with the ED attending. Initial ED EKG: rhythm (sinus), rate (96), prolonged QTc Departure Departure Disposition: STILL A PATIENT Condition: Stable Clinical Impression Primary Impression: Diabetic keto-acidosis Referrals: Patient Has No Primary Care Dr (PCP/Family) Departure Forms: Customer Survey General Discharge Information Admission Note Spoke With: Rehan Liz MD Documentation of Exam: Documentation of any treatments & extenuating circumstances including Concerns Regarding Discharge (functional status, medication knowledge or non-compliance, living conditions, etc.) that warrant an admission rather than observation: [IV insulin, IV fluids, IV sodium bicarbonate, every hour glucose checks, serial chemistries, serial ABGs, hemodynamic monitoring, telemetry monitoring, intake and output monitoring, endocrinology consultation, antiemetics, pain control] Critical Care Note Critical Care Note Critical Care Time: non-applicable
[2018-03-08 02:47] LABS: RBC DISTRIBUTION WIDTH 13.6 % (11.5-14.5)
[2018-03-08 02:52] LABS: HEMATOCRIT 39.2 % (42-52); MEAN CORPUSCULAR HGB 30.3 PG (27.0-31.0); MEAN CORPUSCULAR HGB CONC 33.2 G/DL (33.0-37.0); MEAN CORPUSCULAR VOLUME 91.3 FL (80.0-94.0); MEAN PLATELET VOLUME 9.3 FL (7.4-10.4); PLATELET COUNT 303 /CUMM (130-400); RED BLOOD CELL CT 4.29 /CUMM (4.70-6.10); WHITE BLOOD CELL COUNT 17.4 /CUMM (4.8-10.8)
[2018-03-08 03:35] VITALS: BP 104/62
--- NOTE | 2018-03-08 04:07 | CT SCAN REPORT ---
EXAMINATION: CT ABDOMEN AND PELVIS WITHOUT CONTRAST CLINICAL INFORMATION: Abdominal pain. COMPARISON: None. TECHNIQUE: Contiguous axial thin section helical images of the abdomen and pelvis were performed without oral or IV contrast. The data set was reformatted in the coronal and sagittal planes and reviewed on an independent workstation. DLP: 1058 mGy-cm. FINDINGS: The visualized lung bases are clear. The visualized portions of the heart are unremarkable. The liver is of normal size and diffuse decreased attenuation without focal lesions nor intrahepatic biliary ductal dilation. A normal gallbladder is identified. There is no wall thickening or discernible pericholecystic fluid. The spleen, pancreas, adrenal glands are unremarkable. Both kidneys are of normal size and attenuation without hydronephrosis or nephrolithiasis. There is mild perinephric stranding. There is no abdominal free fluid. There is neither mesenteric nor retroperitoneal lymphadenopathy. Normal unopacified loops of small and large bowel are identified. There is no pelvic free fluid. The urinary bladder is unremarkable. There is neither pelvic nor inguinal lymphadenopathy. Bone windows: Neither sclerotic nor lytic bone lesions are identified. IMPRESSION: No evidence for acute abdominal or pelvic inflammatory or infectious processes. Small hiatal hernia. Hepatic steatosis.
[2018-03-08 05:59] LABS: ABSOLUTE BASOPHIL COUNT 0.1 /CUMM (0.0-0.2); ABSOLUTE EOSINOPHIL COUNT 0 /CUMM (0.0-0.7); ABSOLUTE GRANULOCYTE CT 10.9 /CUMM (1.4-6.5); ABSOLUTE MONOCYTE COUNT 0.4 /CUMM (0.10-0.60); BASOPHIL % 0.5 % (0.0-2.0); EOSINOPHIL % 0 % (0-5); GRANULOCYTE % 81.2 % (42.2-75.2); HEMATOCRIT 35.7 % (42-52); MEAN CORPUSCULAR HGB 30.5 PG (27.0-31.0); MEAN CORPUSCULAR HGB CONC 34.4 G/DL (33.0-37.0); MEAN CORPUSCULAR VOLUME 88.7 FL (80.0-94.0); MEAN PLATELET VOLUME 8.8 FL (7.4-10.4); PLATELET COUNT 270 /CUMM (130-400); RBC DISTRIBUTION WIDTH 13.6 % (11.5-14.5); RED BLOOD CELL CT 4.02 /CUMM (4.70-6.10); WHITE BLOOD CELL COUNT 13.4 /CUMM (4.8-10.8)
[2018-03-08] MEDS ORDERED: VALPROIC ACID250 M1 PO (07:21)
[2018-03-08] MEDS ORDERED: BUSPIRONE HCL30 M1 PO (07:22)
[2018-03-08] MEDS ORDERED: ZOLOFT100 M1 PO (07:22)
[2018-03-08] MEDS ORDERED: METHADONE HCL10 M1 PO (07:23)
[2018-03-08] MEDS ORDERED: ATIVAN0.5 M1 PO (07:23)
[2018-03-08] MEDS ORDERED: BACLOFEN10 M1 PO (07:23)
[2018-03-08] MEDS ORDERED: NOVOLOG100 UNIT/2 SC (07:26)
--- NOTE | 2018-03-08 07:50 | Cons- CRCU ---
Helen JEFFERS,Brandy 03/08/18 0749: General Information and HPI Consulting Request Date of Consult: 03/08/18 Requested By: Reason for Consult: DKA Upper GI bleed Source of Information: patient, old records, EMS Exam Limitations: clinical condition History of Present Illness: Patient is a 47-year-old male with PMH of anxiety, depression, chronic pain, and type 1 diabetes presents with complaints of nausea, vomiting, diarrhea, and hyperglycemia for 1 day. Patient was in his normal state of health until Friday evening, when he endorses having a significant amount of [place] food, after which he was nauseous and vomiting. This continued on Friday, and he also experienced significant hyperglycemia. When he was unable to get his glucose level under control, he called 911 to be taken to the ED. The patient denies any recent cough, congestion, fevers, chills, or any other illness. Denies sick contacts, recent antibiotics, or hospitalizations. Patient also states that his abdomen has been expanding quite rapidly, beginning around 6 to 8 months ago, and that he has an upcoming endoscopy and colonoscopy to explore the cause. In the ED, patient was found to have significantly elevated glucose (>800), elevated K, UA positive for ketones, lactic acid of 6.1, and VBG ph of 6.95. He was admitted to the ICU for management of DKA. Allergies/Medications Allergies: Coded Allergies: No Known Allergies (03/07/18) Home Med List: Baclofen 10 MG TABLET 1 TAB PO TID PAIN (Reported) Buspirone HCl 30 MG TABLET 1 TAB PO BID PSYCH (Reported) Insulin Aspart (Novolog) 100 UNIT/ML VIAL 1 UNIT SC CONTINOUS INFUSION DM1 ( Reported) Lorazepam (Ativan) 0.5 MG TABLET 1 TAB PO BIDP PRN ANXIETY (Reported) Methadone Hydrochloride (Methadone HCl) 10 MG TABLET 3.5 TAB PO DAILY PAIN ( Reported) Sertraline HCl (Zoloft) 100 MG TABLET 1.5 TAB PO DAILY DEPRESSION (Reported) Valproic Acid 250 MG CAPSULE 2 TAB PO TID PSYCH (Reported) Current Medications: Current Medications Sig/Ami Start time Last Medication Dose Route Stop Time Status Admin Calcium Gluconate 1 GM ONCE ONE 03/08 010 DC 03/08 Sodium Chloride 100 ML IV 03/08 159 0104 Calcium Gluconate 0 .STK-MED ONE 03/08 0056 DC IV Ceftriaxone Sodium 1,000 MG ONCE ONE 03/08 0745 DC IV 03/08 0746 Ibuprofen 600 MG Q6P PRN 03/08 0230 DC PO Insulin Human Regular 10 UNITS ONCE ONE 03/08 0200 DC 08 IV 03/08 0201 0151 Insulin Human Regular 100 UNIT Q24H 03/08 0200 AC 03/08 Sodium Chloride 100 ML IV 0247 Insulin Human Regular 10 UNITS ONCE ONE 03/08 0030 DC 03/08 IV 03/08 0031 0035 Metoclopramide HCl 10 MG ONCE ONE 03/08 0730 DC IV 03/08 0731 Metoclopramide HCl 10 MG ONCE ONE 03/07 2345 DC 03/07 IV 03/07 2346 2348 Metoclopramide HCl 0 .STK-MED ONE 03/07 2344 DC .ROUTE Morphine Sulfate 4 MG ONCE ONE 03/08 0045 DC 03/08 IV 03/08 0046 0040 Morphine Sulfate 0 .STK-MED ONE 03/08 0038 DC .ROUTE Ondansetron HCl 0 .STK-MED ONE 03/08 0348 DC .ROUTE Ondansetron HCl 4 MG Q6P PRN 03/08 0345 AC 03/08 IV 0350 Ondansetron HCl 4 MG ONCE ONE 03/07 2345 DC 03/07 IV 03/07 2346 2348 Ondansetron HCl 0 .STK-MED ONE 03/07 2344 DC .ROUTE Pantoprazole Sodium 40 MG BID 03/08 0400 AC 03/08 IV 0350 Pantoprazole Sodium 0 .STK-MED ONE 03/08 0348 DC IV Sodium Bicarbonate 150 MEQ 150 MLS/HR 03/09 0900 AC 03/08 Dextrose/Water 1,000 ML IV 03/09 1539 0625 Sodium Bicarbonate 150 MEQ CONTINOUS INFUSION 03/08 0230 DC Dextrose/Water 1,000 ML IV Sodium Bicarbonate 50 MEQ ONCE ONE 03/08 0115 DC 03/08 IV 03/08 0116 0124 Sodium Chloride 1,000 ML Q8H 03/08 0745 AC IV Sodium Chloride 1,000 ML BOLUS ONE 03/08 0730 AC IV 03/08 0929 Sodium Chloride 1,000 ML BOLUS ONE 03/08 0545 DC 03/08 IV 03/08 0744 0616 Sodium Chloride 1,000 ML BOLUS ONE 03/08 0515 DC 08/ IV / 0714 0530 Sodium Chloride 1,000 ML BOLUS ONE 03/08 0500 DC 08/ IV / 0559 0515 Sodium Chloride 1,000 ML BOLUS ONE 03/08 0345 DC 08/ IV 03/08 0544 0351 Sodium Chloride 1,000 ML BOLUS ONE 03/08 0300 DC 08/ IV / 0459 0259 Sodium Chloride 1,000 ML BOLUS ONE 03/08 0300 DC 08/ IV 03/08 0459 0351 Sodium Chloride 1,000 ML BOLUS ONE 03/08 0045 DC 08/ IV 08/ 0144 0124 Sodium Chloride 1,000 ML BOLUS ONE 03/07 2345 DC 08/ IV / 0044 2348 Sodium Chloride 1,000 ML BOLUS ONE 03/07 2345 DC / IV / 0044 0040 Review of Systems Review of Systems Constitutional: Reports: see HPI. Past History Travel History Traveled to [place] past 21 day No Medical History Blood Transfusion Hx: No Neurological: NONE EENT: NONE Cardiovascular: NONE Respiratory: NONE Gastrointestinal: NONE Hepatic: NONE Renal: NONE Musculoskeletal: NONE Psychiatric: anxiety, depression Endocrine: diabetes, diabetic ketoacidosis Blood Disorders: NONE Cancer(s): NONE DIRECTOR OF STRATEGIC MARKETING/Reproductive: NONE Other Medical Hx: chronic pain Surgical History Surgical History: non-contributory Family History Relations & Conditions If Any: Relation not specified for: *No pertinent family history Psychosocial History Where Do You Live? Home Services at Home: None Primary Language: Korean Smoking Status: Current Everyday Smoker ETOH Use: denies use Illicit Drug Use: denies illicit drug use Functional Ability ADLs Independent: dressing, eating, toileting, bathing. Ambulation: independent IADLs Independent: shopping, housework, finances, food prep, telephone, transportation , medication admin. Exam & Diagnostic Data Last 24 Hrs of Vital Signs/I&O Vital Signs Date Time Temp Pulse Resp B/P B/P Pulse O2 O2 Flow FiO2 Mean Ox Delivery Rate 03/08 0335 97.7 122 22 104/62 97 Room Air 03/08 0236 96.8 111 22 112/58 98 Room Air 03/08 0137 96.7 110 18 105/55 98 Room Air 03/07 2350 96.7 90 22 168/116 100 Room Air Intake & Output 03/08 0800 03/08 0000 03/07 1600 Intake Total 7566 Output Total 1100 Balance 6466 Intake, IV 7566 Output, 150 Emesis Output, Urine 950 Patient 105.233 kg Weight Weight Bed scale Measurement Method Physical Exam General Appearance: anxious, severe distress Head: atraumatic, normal appearance Eyes: Bilateral: normal appearance, PERRL, EOMI. Ears, Nose, Throat: dry mucous membranes Neck: normal inspection, supple Respiratory: normal breath sounds, chest non-tender, no respiratory distress, decreased breath sounds at bases Cardiovascular: regular rate/rhythm, normal peripheral pulses, tachycardia Peripheral Pulses: 2+ radial (R), 2+ radial (L) Gastrointestinal: distention, tenderness on palpation, normal bowel sounds Extremities: normal capillary refill, normal range of motion, slightly cold on palpation Cranial Nerves: normal hearing, normal speech, PERRL Last 48 Hrs of Labs/Pino: Laboratory Tests 03/08/18 0840: pH 7.32 L, pCO2 27 L, pO2 83, HCO3 14 L, ABG O2 Sat (Measured) 96.0, P-50 ( Temp Corrected) N, Carboxyhemoglobin 0.2 L, O2 Concentration % .21, Temperature 97.7, O2 Delivery Method RA, Phlebotomy Draw Site RIGHT RADIAL 03/08/18 0510: Anion Gap 27 H, Estimated GFR 50 L, Glucose 399 H, Lactic Acid 3.7 H, Calcium 8.1 L, Phosphorus 6.8 H, Magnesium 2.4 H, Total Bilirubin 0.4, AST 36 , ALT 56, Troponin I < 0.01, Albumin 3.7, CBC w Diff NO MAN DIFF REQ, RBC 4.02 L, MCV 88.7, MCH 30.5, MCHC 34.4, RDW 13.6, MPV 8.8, Gran % 81.2 H, Lymphocytes % 15.1 L, Monocytes % 3.2, Eosinophils % 0, Basophils % 0.5, Absolute Granulocytes 10.9 H, Absolute Lymphocytes 2.0, Absolute Monocytes 0.4, Absolute Eosinophils 0, Absolute Basophils 0.1 03/08/18228: Lactic Acid 5.7 H 03/08/18228: Anion Gap 35.19910 H, Estimated GFR 46 L, Glucose 624 *H, Calcium 8.5, Phosphorus 11.1 H, Magnesium 2.3, Total Bilirubin 0.3, AST 40, ALT 64, Albumin 4.0, Amylase Pending, CBC w Diff MAN DIFF ORDERED, RBC 4.29 L, MCV 91.3, MCH 30.3, MCHC 33.2, RDW 13.6, MPV 9.3, Segmented Neutrophils 70, Band Neutrophils 7 H, Lymphocytes 20 L, Monocytes 3, Platelet Estimate ADEQUATE, Normocytic RBCs VERIFIED, Normochromic RBCs VERIFIED 03/08/18 0015: Urine Opiates Screen < 100, Methadone Screen > 735 H, Barbiturate Screen < 60, Ur Phencyclidine Scrn < 6.00, Amphetamines Screen < 100, U Benzodiazepines Scrn < 85, Urine Cocaine Screen < 50, Urine Cannabis Screen < 5.00, Urinalysis LIGHT H, Urine Color YEL, Urine Clarity CLEAR, Urine pH 6.0, Ur Specific [place] 1.025 , Urine Protein TRACE H, Urine Ketones >=80, Urine Nitrite NEG, Urine Bilirubin NEG@ICTO, Urine Urobilinogen 0.2, Ur Leukocyte Esterase NEG, Ur Microscopic SEDIMENT EXAMINED, Urine WBC 1-3 H, Urine Bacteria MOD H, Hyaline Casts RARE H, Urine Mucus FEW, Urine Hemoglobin SMALL H, Urine Glucose >=1000 H 03/08/18 0005: Bicarbonate Actual 4.7 L, Mixed VBG pH 6.95 L, Mixed VBG pCO2 22 L, Mixed VBG O2 Saturation 63 H, P-50 (Temp Corrected) N, Carboxyhemoglobin 0.8 L, O2 Concentration % RA, Temperature 98.6, Anion Gap 35 H, Estimated GFR 46 L, BUN/ Creatinine Ratio 18.1, Glucose 853 *H, Lactic Acid 6.1 H, Calcium 8.6, Phosphorus 12.4 H, Magnesium 2.4 H, Total Bilirubin 0.5, AST 42, ALT 69, Alkaline Phosphatase 497 H, Troponin I < 0.01, Total Protein 6.9, Albumin 4.3, Globulin 2.6, Albumin/Globulin Ratio 1.7, Lipase 27, PT 11.2, INR 1.03, APTT 29, CBC w Diff NO MAN DIFF REQ, RBC 4.34 L, MCV 92.5, MCH 30.7, MCHC 33.2, RDW 14.0 , MPV 9.0, Gran % 75.3 H, Lymphocytes % 19.9 L, Monocytes % 4.1, Eosinophils % 0.5, Basophils % 0.2, Absolute Granulocytes 11.8 H, Absolute Lymphocytes 3.1, Absolute Monocytes 0.7 H, Absolute Eosinophils 0.1, Absolute Basophils 0, Phlebotomy Draw Site RAC, Serum Alcohol < 10.0, Acetone Level POSITIVE AT 1:32 DIL Diagnostic Data CXR Results IMPRESSION: No evidence for acute disease. 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 He reports symptoms started after eating [place] food and night prior to presentation. He reports taking significant amount of NSH along with his pain medications for lower extremity pains (neuropathy). He is found to be in severe distress this a.m. vital signs afebrile, tachycardic upto 120, blood pressure 168/116 on presentation --> 104/60 mmHg, saturating well on room air. Physical examination is significant for severe tenderness in the abdomen, actively nauseous and retching, normal S1-S2, clear lungs, pulses 2+. Lower extremity cold to touch. Pertinent labs At presentation had significant acidosis pH 6.95 on VBG, acetone positive, white count of 15.7, H&H 13/30, platelet count 353, sodium 127, potassium 6.7, bicarbonate less than 5, glucose 853, phosphorus 4.4, alkaline phosphorus 497, normal lipase and amylase. Toxic screen is positive for methadone. INR 1.03. LFTs normal except ALP. Urinalysis did show ketones with trace proteins, > 1000 glucose, hyaline casts. Lactic acid 5.7. Potassium improved to 5.7 and then increased to 6.0 this morning again. A single dose of ceftriaxone given due to concern of bleeding. Problem list 1. Profound DKA with pH on VBG 6.9, currently on IV insulin and bicarbonate drips 2. Coffee ground emesis 3. Elevated ALP 4. Chronic pain on methadone, NSAIDs 5. Diabetic neuropathy 6. MELO Plan DKA * IV insuline drip till his gap closes * IV bicarb drip - stopped as pH 7.3 * K goal 3.3 - 5.3 * Bicarbonate gaol > 18 * Received so far 9L of NS, currently started on D51/2NS with potassium @ 150ml/ hr * NPO while on insulin * Endocrine on board Coffee ground emesis h/o ulcers, alcohol, taking NSAIDs. * IV PPI * avoid NSAIDs * Monitor H&H * GI on board, endoscopy if any worsening of H&H, bright red blood Chronic pain on methadone Avoid for now. * IV tylenol for pain * IV ativan as needed * Will restart methadone once able to eat well MELO - Cr 1.5 Likely from dehydration. Impoved now. Cr 0.5 today. Mental health Patient was on multiple medications including sertraline, buspirone, valproic acid. Doses need to be confirmed. we will confirm and restart once able to eat. DVT prophylaxis SC heparin Code status Full code Consult Acknowledgment - Thank you for your consult request. Aleida JEFFERS,[facility] 03/08/18 0948: Assessment/Plan CRCU Other Findings/Comments: General Appearance Alert, Cooperative, Severe Distress Skin No Rashes, No Breakdown, No Significant Lesion Skin Temp/Moisture Exam: Warm/Dry HEENT Atraumatic, PERRLA, EOMI Neck Supple, No JVD, No thryomegaly Cardiovascular Regular Rate, Normal S1, Normal S2, No Murmurs, Gallops, Rubs Lungs Clear to Auscultation, Normal Air Movement Abdomen Soft, mild Tenderness, No Hepatospenomegaly, No Masses Neurological Normal Speech, Normal Tone Extremities No Clubbing, No Cyanosis, No Edema 47-year-old male with past medical history of anxiety, depression, chronic pain, and type 1 diabetes presents with 1 day of nausea, vomiting hyperglycemia, admitted to CRCU for DKA, electrolyte abnormalities, and mild heme positive emesis DKA Diffuse abd pain appears to be so far from DKA Mild heme positive coffee ground type emesis stable Electrolyte abnormality MELO Anxiety/depression/chronic pain Hepatic stetosis REC Cont iv insulin/fluids Replace electrolytes Low dose narcotics and pt may be withdrawing Endocrine to see Once vomiting stops can give his home dose methadone Pt is critically ill Consult Acknowledgment - Thank you for your consult request.
[2018-03-08 13:50] LABS: ABSOLUTE BASOPHIL COUNT 0 /CUMM (0.0-0.2); ABSOLUTE EOSINOPHIL COUNT 0 /CUMM (0.0-0.7); ABSOLUTE GRANULOCYTE CT 6.9 /CUMM (1.4-6.5); ABSOLUTE LYMPH COUNT 1.1 /CUMM (1.2-3.4); ABSOLUTE MONOCYTE COUNT 0.6 /CUMM (0.10-0.60); BASOPHIL % 0.4 % (0.0-2.0); EOSINOPHIL % 0.1 % (0-5); GRANULOCYTE % 79.9 % (42.2-75.2); HEMATOCRIT 31.8 % (42-52); MEAN CORPUSCULAR HGB 30.2 PG (27.0-31.0); MEAN CORPUSCULAR HGB CONC 34.9 G/DL (33.0-37.0); MEAN CORPUSCULAR VOLUME 86.7 FL (80.0-94.0); MEAN PLATELET VOLUME 8.5 FL (7.4-10.4); PLATELET COUNT 230 /CUMM (130-400); RBC DISTRIBUTION WIDTH 13.8 % (11.5-14.5); RED BLOOD CELL CT 3.67 /CUMM (4.70-6.10); WHITE BLOOD CELL COUNT 8.7 /CUMM (4.8-10.8)
--- NOTE | 2018-03-08 14:12 | Event Note ---
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 He also had significant pain in his legs for which he has been taking lot of pain medications and alcohol at home. Assessment and plan Patient might be deprived of insulin due to pump dislodgement, he is also found to have significant tremors this am likely from withdrawl. we will start him on diagnostic CIWA along with DKA treatment. Family reports bringing his pill bottles today or tomorrow, we will update CMR accordingly.
--- NOTE | 2018-03-08 15:31 | Cons- Gastroenterology ---
General Information and HPI Consulting Request Date of Consult: 03/08/18 Requested By: Rehan Liz MD Reason for Consult: 1. Nausea vomiting 2. Hematemesis 3. Acute blood loss anemia 4. Diabetic ketoacidosis Source of Information: patient, Electronic Medical Records Exam Limitations: clinical condition, Patient lethargic, although able to provide some history History of Present Illness: Mr. Parmar is a 47-year-old male who is admitted to [facility] with diabetic ketoacidosis. In the emergency department he had an episode of hematemesis of a moderate amount of coffee-ground material and since admission to the ICU has had persistent nausea and vomiting with clear gastric secretions admixed with small amounts of coffee-ground material. He has had no melena nor bright red blood per rectum. He reports that he has been drinking 3 or 4 shots nightly for control of his diabetic neuropathy. And his family had called the ICU noting that they had found many small, empty bottles of alcohol at his home. Further he reports that he has been taking NSAIDs for pain. He also reports that he has had increasing abdominal distention and was scheduled for an EGD and colonoscopy as an outpatient. He has had diabetic ketoacidosis once last year. 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 Prior to this admission he had had no weight loss fever or shaking chills. He has had no change in bowel habit or stool caliber. He had no nausea or vomiting or hematemesis and had no melena nor bright red blood per rectum. His diabetic ketoacidosis has been particularly difficult to control. In the ED , patient was found to have significantly elevated glucose (>800), elevated K, UA positive for ketones, lactic acid of 6.1, and VBG ph of 6.95. He was admitted to the ICU for management of DKA. On admission he had WBC 15.7 with an H&H of 13.3 and 40.1. His platelets were 353,000. Today his H&H is 11.1/31.8 with WBC of 8.7. His bicarbonate ws 5 on admission which increased to [id number] 6 by this morning and then early this afternoon to 15 and now is at 20. Repeat ABD was 7.32/27/83/14. He had a CT scan of the abdomen and pelvis done in the ED results of which are as follows. FINDINGS: The visualized lung bases are clear. The visualized portions of the heart are unremarkable. The liver is of normal size and diffuse decreased attenuation without focal lesions nor intrahepatic biliary ductal dilation. A normal gallbladder is identified. There is no wall thickening or discernible pericholecystic fluid. The spleen, pancreas, adrenal glands are unremarkable. Both kidneys are of normal size and attenuation without hydronephrosis or nephrolithiasis. There is mild perinephric stranding. There is no abdominal free fluid. There is neither mesenteric nor retroperitoneal lymphadenopathy. Normal unopacified loops of small and large bowel are identified. There is no pelvic free fluid. The urinary bladder is unremarkable. There is neither pelvic nor inguinal lymphadenopathy. Bone windows: Neither sclerotic nor lytic bone lesions are identified. IMPRESSION: No evidence for acute abdominal or pelvic inflammatory or infectious processes. Small hiatal hernia. Hepatic steatosis. Allergies/Medications Allergies: Coded Allergies: No Known Allergies (03/07/18) Home Med List: Baclofen 10 MG TABLET 1 TAB PO TID PAIN (Reported) Buspirone HCl 30 MG TABLET 1 TAB PO BID PSYCH (Reported) Insulin Aspart (Novolog) 100 UNIT/ML VIAL 1 UNIT SC CONTINOUS INFUSION DM1 ( Reported) Lorazepam (Ativan) 0.5 MG TABLET 1 TAB PO BIDP PRN ANXIETY (Reported) Methadone Hydrochloride (Methadone HCl) 10 MG TABLET 3.5 TAB PO DAILY PAIN ( Reported) Sertraline HCl (Zoloft) 100 MG TABLET 1.5 TAB PO DAILY DEPRESSION (Reported) Valproic Acid 250 MG CAPSULE 2 TAB PO TID PSYCH (Reported) Current Medications: Current Medications Sig/Ami Start time Last Medication Dose Route Stop Time Status Admin Acetaminophen 1,000 MG ONCE ONE 03/08 1000 DC 03/08 N/A 1 UNIT IV 03/08 1014 1127 Calcium Gluconate 1 GM ONCE ONE 03/08 0100 DC 03/08 Sodium Chloride 100 ML IV 03/08 0159 0104 Calcium Gluconate 0 .STK-MED ONE 03/08 0056 DC IV Ceftriaxone Sodium 1,000 MG ONCE ONE 03/08 0745 DC 03/08 IV 03/08 0746 0831 Dextrose/Sodium 1,000 ML Q6H 03/08 1030 DC Chloride IV Heparin Sodium 5,000 UNIT Q8 03/08 1400 AC (Porcine) SC Ibuprofen 600 MG Q6P PRN 03/08 0230 DC PO Insulin Human Regular 100 UNIT Q5H 03/08 1300 AC Sodium Chloride 100 ML IV Insulin Human Regular 10 UNITS ONCE ONE 03/08 0200 DC 08 IV 03/08 0201 0151 Insulin Human Regular 100 UNIT Q24H 03/08 0200 DC 03/08 Sodium Chloride 100 ML IV 03/08 1259 0247 Insulin Human Regular 10 UNITS ONCE ONE 03/08 0030 DC 03/08 IV 03/08 0031 0035 Lorazepam 0.5 MG ONCE ONE 03/08 1015 DC 03/08 IV 03/08 1016 1008 Lorazepam 0 .STK-MED ONE 03/08 1008 DC .ROUTE Metoclopramide HCl 0 .STK-MED ONE 03/08 0816 DC .ROUTE Metoclopramide HCl 10 MG ONCE ONE 03/08 0730 DC 03/08 IV 03/08 0731 0818 Metoclopramide HCl 10 MG ONCE ONE 03/07 2345 DC 03/07 IV 03/07 2346 2348 Metoclopramide HCl 0 .STK-MED ONE 03/07 2344 DC .ROUTE Morphine Sulfate 0 .STK-MED ONE 03/08 0850 DC .ROUTE Morphine Sulfate 2 MG ONCE ONE 03/08 0845 DC 03/08 IV 03/08 0846 0851 Morphine Sulfate 4 MG ONCE ONE 03/08 0045 DC 03/08 IV 03/08 0046 0040 Morphine Sulfate 0 .STK-MED ONE 03/08 0038 DC .ROUTE Ondansetron HCl 0 .STK-MED ONE 03/08 0348 DC .ROUTE Ondansetron HCl 4 MG Q6P PRN 03/08 0345 AC 03/08 IV 1127 Ondansetron HCl 4 MG ONCE ONE 03/07 2345 DC 03/07 IV 03/07 2346 2348 Ondansetron HCl 0 .STK-MED ONE 03/07 2344 DC .ROUTE Pantoprazole Sodium 40 MG BID 03/08 0400 AC 03/08 IV 0822 Pantoprazole Sodium 0 .STK-MED ONE 03/08 0348 DC IV Phosphate 250 MG ONCE ONE 03/08 1400 DC PO 03/08 1401 Potassium Chloride 40 MEQ Q6H 03/08 1115 AC 08 Dextrose/Sodium 1,000 ML IV 1125 Chloride Potassium Chloride 40 MEQ ONCE ONE 03/08 1030 DC 08/19 PO 03/08 1031 1127 Potassium Chloride 40 MEQ CONTINOUS INFUSION 03/08 1030 CAN IV Potassium Phosphate 15 mMol ONE ONE 03/08 1400 AC Dextrose/Water 250 ML IV 03/08 1804 Sodium Bicarbonate 150 MEQ 150 MLS/HR 03/09 0900 DC 03/08 Dextrose/Water 1,000 ML IV 03/09 1539 0625 Sodium Bicarbonate 150 MEQ CONTINOUS INFUSION 03/08 0230 DC Dextrose/Water 1,000 ML IV Sodium Bicarbonate 50 MEQ ONCE ONE 03/08 0115 DC 03/08 IV 03/08 0116 0124 Sodium Chloride 1,000 ML Q8H 03/08 0745 DC IV Sodium Chloride 1,000 ML BOLUS ONE 03/08 0730 DC 03/08 IV 03/08 0929 0819 Sodium Chloride 1,000 ML BOLUS ONE 03/08 0545 DC 03/08 IV 03/08 0744 0616 Sodium Chloride 1,000 ML BOLUS ONE 03/08 0515 DC 03/08 IV 03/08 0714 0530 Sodium Chloride 1,000 ML BOLUS ONE 03/08 0500 DC 03/08 IV 03/08 0559 0515 Sodium Chloride 1,000 ML BOLUS ONE 03/08 0345 DC 03/08 IV 03/08 0544 0351 Sodium Chloride 1,000 ML BOLUS ONE 03/08 0300 DC 03/08 IV 03/08 0459 0259 Sodium Chloride 1,000 ML BOLUS ONE 03/08 0300 DC 03/08 IV 03/08 0459 0351 Sodium Chloride 1,000 ML BOLUS ONE 03/08 0045 DC 03/08 IV 03/08 0144 0124 Sodium Chloride 1,000 ML BOLUS ONE 03/07 2345 DC 03/07 IV 03/08 0044 2348 Sodium Chloride 1,000 ML BOLUS ONE 03/07 2345 DC 03/08 IV 03/08 0044 0040 Past History Travel History Traveled to [place] past 21 day No Medical History Blood Transfusion Hx: No Neurological: peripheral neuropathy EENT: NONE Cardiovascular: NONE Respiratory: NONE Gastrointestinal: NONE Hepatic: NONE Renal: NONE Musculoskeletal: NONE Psychiatric: anxiety, depression Endocrine: diabetes, diabetic ketoacidosis Blood Disorders: NONE Cancer(s): NONE 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 Home Services at Home: None Primary Language: Estonian Smoking Status: Current Everyday Smoker ETOH Use: denies use Illicit Drug Use: denies illicit drug use Functional Ability ADLs Independent: dressing, eating, toileting, bathing. Ambulation: independent IADLs Independent: shopping, housework, finances, food prep, telephone, transportation , medication admin. Review of Systems Review of Systems: Unable to Obtain due to mental status and poor clinical condition Exam & Diagnostic Data Vital Signs and I&O Vital Signs Date Time Temp Pulse Resp B/P B/P Pulse O2 O2 Flow FiO2 Mean Ox Delivery Rate 03/08 0335 97.7 122 22 104/62 97 Room Air 03/08 0236 96.8 111 22 112/58 98 Room Air 03/08 0137 96.7 110 18 105/55 98 Room Air 03/07 2350 96.7 90 22 168/116 100 Room Air Intake & Output 03/08 1600 03/08 0400 03/07 1600 03/07 0400 03/06 1600 03/06 0400 Intake Total 3566 4000 Output Total 800 300 Balance 2766 3700 Intake, IV 3566 4000 Output, 150 Emesis Output, Urine 650 300 Patient 232 lb Weight Weight Bed scale Measurement Method Physical Exam General Appearance: moderate distress Head: atraumatic, normal appearance Eyes: Bilateral: normal appearance. Ears, Nose, Throat: hearing grossly normal Neck: normal inspection, supple, full range of motion Respiratory: normal breath sounds, no respiratory distress, lungs clear Cardiovascular: regular rate/rhythm, Normal S1 and S2, without rub, murmur or gallop Gastrointestinal: normal bowel sounds, soft, non-tender, no organomegaly Extremities: normal inspection, no edema Neurologic/Psych: lethargic, but arousable and answers questions appropriately Cranial Nerves: unable to assess, moves all extremities, no obvious deficits Skin: intact, normal color, diaphoresis, no telangiectasia noted Results Pertinent Lab Results: Laboratory Tests 03/08 03/08 03/08 1305 1300 0930 Blood Gas Bicarbonate Actual (22 - 26 MEQ/L) 21 L Mixed VBG pH (7.31 - 7.41 PH) 7.38 Mixed VBG pCO2 (41 - 51 TORR) 36 L Mixed VBG O2 Saturation (35 - 45 TORR) 31 L P-50 (Temp Corrected) N Carboxyhemoglobin (1.5 - 5.0 %) 0.8 L O2 Concentration % .21 Temperature (97.0 - 100.0 FARH) 97.7 O2 Delivery Method RA Chemistry Sodium (137 - 145 mmol/L) 140 140 Potassium (3.5 - 5.1 mmol/L) 4.0 4.1 Chloride (98 - 107 mmol/L) 111 H 112 H Carbon Dioxide (22 - 30 mmol/L) 20 L 15 L Anion Gap (5 - 16) 9 13 BUN (9 - 20 mg/dL) 19 21 H Creatinine (0.7 - 1.2 mg/dL) 0.8 1.0 Estimated GFR (>60 ml/min) > 60 > 60 Glucose (65 - 99 mg/dL) 122 H 164 H Lactic Acid (0.7 - 2.1 mmol/L) 2.1 Calcium (8.4 - 10.2 mg/dL) 7.6 L 7.4 L Phosphorus (2.5 - 4.5 mg/dL) 1.4 L 1.3 L Magnesium (1.6 - 2.3 mg/dL) 1.8 1.7 Total Bilirubin (0.2 - 1.3 mg/dL) 0.2 0.2 AST (17 - 59 U/L) 27 28 ALT (21 - 72 U/L) 51 53 Albumin (3.5 - 5.0 g/dL) 3.2 L 3.1 L Hematology CBC w Diff NO MAN DIFF REQ WBC (4.8 - 10.8 /CUMM) 8.7 RBC (4.70 - 6.10 /CUMM) 3.67 L Hgb (14.0 - 18.0 G/DL) 11.1 L Hct (42 - 52 %) 31.8 L MCV (80.0 - 94.0 FL) 86.7 MCH (27.0 - 31.0 PG) 30.2 MCHC (33.0 - 37.0 G/DL) 34.9 RDW (11.5 - 14.5 %) 13.8 Plt Count (130 - 400 /CUMM) 230 MPV (7.4 - 10.4 FL) 8.5 Gran % (42.2 - 75.2 %) 79.9 H Lymphocytes % (20.5 - 51.1 %) 12.6 L Monocytes % (1.7 - 9.3 %) 7.0 Eosinophils % (0 - 5 %) 0.1 Basophils % (0.0 - 2.0 %) 0.4 Absolute Granulocytes (1.4 - 6.5 /CUMM) 6.9 H Absolute Lymphocytes (1.2 - 3.4 /CUMM) 1.1 L Absolute Monocytes (0.10 - 0.60 /CUMM) 0.6 Absolute Eosinophils (0.0 - 0.7 /CUMM) 0 Absolute Basophils (0.0 - 0.2 /CUMM) 0 Miscellaneous Phlebotomy Draw Site LEFT 03/08 03/08 03/08 0875 0421 3511 Blood Gas pH (7.35 - 7.45 PH) 7.32 L pCO2 (35 - 45 TORR) 27 L pO2 (80 - 100 TORR) 83 HCO3 (21 - 28 MEQ/L) 14 L ABG O2 Sat (Measured) (>96.0 %) 96.0 P-50 (Temp Corrected) N Carboxyhemoglobin (1.5 - 5.0 %) 0.2 L O2 Concentration % .21 Temperature (97.0 - 100.0 FARH) 97.7 O2 Delivery Method RA Chemistry Sodium (137 - 145 mmol/L) 139 Potassium (3.5 - 5.1 mmol/L) 6.0 *H Chloride (98 - 107 mmol/L) 106 Carbon Dioxide (22 - 30 mmol/L) 6 *L Anion Gap (5 - 16) 27 H BUN (9 - 20 mg/dL) 29 H Creatinine (0.7 - 1.2 mg/dL) 1.5 H Estimated GFR (>60 ml/min) 50 L Glucose (65 - 99 mg/dL) 399 H Hemoglobin A1c (4.2 - 5.8 %) Pending Lactic Acid (0.7 - 2.1 mmol/L) 3.7 H 5.7 H Calcium (8.4 - 10.2 mg/dL) 8.1 L Phosphorus (2.5 - 4.5 mg/dL) 6.8 H Magnesium (1.6 - 2.3 mg/dL) 2.4 H Total Bilirubin (0.2 - 1.3 mg/dL) 0.4 AST (17 - 59 U/L) 36 ALT (21 - 72 U/L) 56 Troponin I (<0.11 ng/ml) < 0.01 Albumin (3.5 - 5.0 g/dL) 3.7 Hematology CBC w Diff NO MAN DIFF REQ WBC (4.8 - 10.8 /CUMM) 13.4 H RBC (4.70 - 6.10 /CUMM) 4.02 L Hgb (14.0 - 18.0 G/DL) 12.3 L Hct (42 - 52 %) 35.7 L MCV (80.0 - 94.0 FL) 88.7 MCH (27.0 - 31.0 PG) 30.5 MCHC (33.0 - 37.0 G/DL) 34.4 RDW (11.5 - 14.5 %) 13.6 Plt Count (130 - 400 /CUMM) 270 MPV (7.4 - 10.4 FL) 8.8 Gran % (42.2 - 75.2 %) 81.2 H Lymphocytes % (20.5 - 51.1 %) 15.1 L Monocytes % (1.7 - 9.3 %) 3.2 Eosinophils % (0 - 5 %) 0 Basophils % (0.0 - 2.0 %) 0.5 Absolute Granulocytes (1.4 - 6.5 /CUMM) 10.9 H Absolute Lymphocytes (1.2 - 3.4 /CUMM) 2.0 Absolute Monocytes (0.10 - 0.60 /CUMM) 0.4 Absolute Eosinophils (0.0 - 0.7 /CUMM) 0 Absolute Basophils (0.0 - 0.2 /CUMM) 0.1 Miscellaneous Phlebotomy Draw Site RIGHT RADIAL 03/08 03/08 0229 0015 Chemistry Sodium (137 - 145 mmol/L) 137 Potassium (3.5 - 5.1 mmol/L) 5.7 H Chloride (98 - 107 mmol/L) 97 L Carbon Dioxide (22 - 30 mmol/L) < 5 *L Anion Gap (5 - 16) 35.47173 H BUN (9 - 20 mg/dL) 30 H Creatinine (0.7 - 1.2 mg/dL) 1.6 H Estimated GFR (>60 ml/min) 46 L Glucose (65 - 99 mg/dL) 624 *H Calcium (8.4 - 10.2 mg/dL) 8.5 Phosphorus (2.5 - 4.5 mg/dL) 11.1 H Magnesium (1.6 - 2.3 mg/dL) 2.3 Total Bilirubin (0.2 - 1.3 mg/dL) 0.3 AST (17 - 59 U/L) 40 ALT (21 - 72 U/L) 64 Albumin (3.5 - 5.0 g/dL) 4.0 Amylase (30 - 110 U/L) 76 Hematology CBC w Diff MAN DIFF ORDERED WBC (4.8 - 10.8 /CUMM) 17.4 H RBC (4.70 - 6.10 /CUMM) 4.29 L Hgb (14.0 - 18.0 G/DL) 13.0 L Hct (42 - 52 %) 39.2 L MCV (80.0 - 94.0 FL) 91.3 MCH (27.0 - 31.0 PG) 30.3 MCHC (33.0 - 37.0 G/DL) 33.2 RDW (11.5 - 14.5 %) 13.6 Plt Count (130 - 400 /CUMM) 303 MPV (7.4 - 10.4 FL) 9.3 Segmented Neutrophils (42.2 - 75.2 %) 70 Band Neutrophils (0.0 - 5.0 %) 7 H Lymphocytes (20.5 - 51.1 %) 20 L Monocytes (1.7 - 9.3 %) 3 Platelet Estimate (ADEQUATE) ADEQUATE Normocytic RBCs VERIFIED Normochromic RBCs VERIFIED Toxicology Urine Opiates Screen (>2000 NG/ML) < 100 Methadone Screen (>300 NG/ML) > 735 H Barbiturate Screen (>200 NG/ML) < 60 Ur Phencyclidine Scrn (>25 NG/ML) < 6.00 Amphetamines Screen (>1000 NG/ML) < 100 U Benzodiazepines Scrn (>200 NG/ML) < 85 Urine Cocaine Screen (>300 NG/ML) < 50 Urine Cannabis Screen (>50 NG/ML) < 5.00 Urines Urinalysis LIGHT H Urine Color (YEL,AMB,STR) YEL Urine Clarity (CLEAR) CLEAR Urine pH (5.0 - 8.0) 6.0 Ur Specific Royal (1.001 - 1.035) 1.025 Urine Protein (NEG,<30 MG/DL) TRACE H Urine Ketones (NEG) >=80 Urine Nitrite (NEG) NEG Urine Bilirubin (NEG) NEG@ICTO Urine Urobilinogen (0.1 - 1.0 EU/dl) 0.2 Ur Leukocyte Esterase (NEG) NEG Ur Microscopic SEDIMENT EXAMINED Urine WBC (0 - 2 /HPF) 1-3 H Urine Bacteria (NEG/NONE) MOD H Hyaline Casts (0/LPF) RARE H Urine Mucus (FEW,NONE) FEW Urine Hemoglobin (NEG) SMALL H Urine Glucose (N MG/DL) >=1000 H 03/08 0005 Blood Gas Bicarbonate Actual (22 - 26 MEQ/L) 4.7 L Mixed VBG pH (7.31 - 7.41 PH) 6.95 L Mixed VBG pCO2 (41 - 51 TORR) 22 L Mixed VBG O2 Saturation (35 - 45 TORR) 63 H P-50 (Temp Corrected) N Carboxyhemoglobin (1.5 - 5.0 %) 0.8 L O2 Concentration % RA Temperature (97.0 - 100.0 FARH) 98.6 Chemistry Sodium (137 - 145 mmol/L) 127 L Potassium (3.5 - 5.1 mmol/L) 6.7 *H Chloride (98 - 107 mmol/L) 87 L Carbon Dioxide (22 - 30 mmol/L) < 5 *L Anion Gap (5 - 16) 35 H BUN (9 - 20 mg/dL) 29 H Creatinine (0.7 - 1.2 mg/dL) 1.6 H Estimated GFR (>60 ml/min) 46 L BUN/Creatinine Ratio (7 - 25 %) 18.1 Glucose (65 - 99 mg/dL) 853 *H Lactic Acid (0.7 - 2.1 mmol/L) 6.1 H Calcium (8.4 - 10.2 mg/dL) 8.6 Phosphorus (2.5 - 4.5 mg/dL) 12.4 H Magnesium (1.6 - 2.3 mg/dL) 2.4 H Total Bilirubin (0.2 - 1.3 mg/dL) 0.5 AST (17 - 59 U/L) 42 ALT (21 - 72 U/L) 69 Alkaline Phosphatase (< 127 U/L) 497 H Troponin I (<0.11 ng/ml) < 0.01 Total Protein (6.3 - 8.2 g/dL) 6.9 Albumin (3.5 - 5.0 g/dL) 4.3 Globulin (1.9 - 4.2 gm/dL) 2.6 Albumin/Globulin Ratio (1.1 - 2.2 %) 1.7 Lipase (23 - 300 U/L) 27 Coagulation PT (9.4 - 12.5 SEC) 11.2 INR (0.90 - 1.17) 1.03 APTT (25 - 37 SEC) 29 Hematology CBC w Diff NO MAN DIFF REQ WBC (4.8 - 10.8 /CUMM) 15.7 H RBC (4.70 - 6.10 /CUMM) 4.34 L Hgb (14.0 - 18.0 G/DL) 13.3 L Hct (42 - 52 %) 40.1 L MCV (80.0 - 94.0 FL) 92.5 MCH (27.0 - 31.0 PG) 30.7 MCHC (33.0 - 37.0 G/DL) 33.2 RDW (11.5 - 14.5 %) 14.0 Plt Count (130 - 400 /CUMM) 353 MPV (7.4 - 10.4 FL) 9.0 Gran % (42.2 - 75.2 %) 75.3 H Lymphocytes % (20.5 - 51.1 %) 19.9 L Monocytes % (1.7 - 9.3 %) 4.1 Eosinophils % (0 - 5 %) 0.5 Basophils % (0.0 - 2.0 %) 0.2 Absolute Granulocytes (1.4 - 6.5 /CUMM) 11.8 H Absolute Lymphocytes (1.2 - 3.4 /CUMM) 3.1 Absolute Monocytes (0.10 - 0.60 /CUMM) 0.7 H Absolute Eosinophils (0.0 - 0.7 /CUMM) 0.1 Absolute Basophils (0.0 - 0.2 /CUMM) 0 Miscellaneous Phlebotomy Draw Site RAC Toxicology Serum Alcohol (<10 MG/DL) < 10.0 Acetone Level (NEGATIVE) POSITIVE AT 1:32 DIL Imaging/Other Studies: FINDINGS: The visualized lung bases are clear. The visualized portions of the heart are unremarkable. The liver is of normal size and diffuse decreased attenuation without focal lesions nor intrahepatic biliary ductal dilation. A normal gallbladder is identified. There is no wall thickening or discernible pericholecystic fluid. The spleen, pancreas, adrenal glands are unremarkable. Both kidneys are of normal size and attenuation without hydronephrosis or nephrolithiasis. There is mild perinephric stranding. There is no abdominal free fluid. There is neither mesenteric nor retroperitoneal lymphadenopathy. Normal unopacified loops of small and large bowel are identified. There is no pelvic free fluid. The urinary bladder is unremarkable. There is neither pelvic nor inguinal lymphadenopathy. Bone windows: Neither sclerotic nor lytic bone lesions are identified. IMPRESSION: No evidence for acute abdominal or pelvic inflammatory or infectious processes. Small hiatal hernia. Hepatic steatosis. Assessment/Plan Assessment/Recommendations: ASSESSMENT: 1. Coffee-ground emesis. This is mild at this point. Patient's continued nausea and vomiting is likely related to diabetic ketoacidosis and poorly controlled diabetes. Patient may have peptic ulcer disease or a Susu-Murphy tear. However control of his blood glucose and diabetic ketoacidosis is at this time of time concern. 2. Nausea and vomiting. As above likely related to DKA. 3. Diabetic Ketoacidosis 4. Anemia --question due to acute blood loss versus hemodilution in the setting of treatment of DKA. 5. Chronic use of NSAIDs 6. Alcohol abuse. There are no signs of synthetic dysfunction. 7. Diabetes mellitus poorly controlled. 8. Elevated alkaline phosphatase RECOMMENDATIONS: 1. Would give patient antiemetic around the clock to prevent further nausea and vomiting 2. Patient to remain n.p.o. If DKA reliably under control will perform EGD tomorrow 3. Protonix 40 mg IV twice daily 4. Serial H&H 5. If patient has large-volume hematemesis or large-volume melena or any change in clinical condition related to GI blood loss called Dr. Cho immediately. 6. Would check an MARCO and AMA given elevated alkaline phosphatase. Would follow alk phos serially. 7. Consider DVT prophylaxis given ongoing alcohol abuse. 6. Consult Acknowledgment - Thank you for your consult request.
--- NOTE | 2018-03-08 15:38 | Cons- Endocrinology ---
General Information and HPI Consulting Request Date of Consult: 03/08/18 Requested By: ICU team Reason for Consult: management of DKA Source of Information: family, old records Exam Limitations: confusion History of Present Illness: $7 y/o male who has had diabetes type 1 which was diagnosed 5 years ago ( as per family, his diabetes hasn't been controlled), was put on t slim insulin pump 2 years ago, presented with nausea, vominting and confusion. His glucose level was found to be 853, bicarb , 5, AG 35, ph 6.95. He was admitted to ICU for DKA. His insulin pump settings: Basal rate: midnight 0.95 units per hour; 3 am 1 units per hour; 8 am 1 units per hour; 10 am 1.1 units per hour; 9 pm 0.95 units per hour IC ratio 15 grams insulin sensitivity 50 mg/dl Target of glucose 125 mg/dl active insulin time 4 hours. In hospital, he was put on IVF, insuin drip and bicarb drip in D5w at 150 ml/ hour. Insulin drip rate was 20 units per hour this morning. It was then decreased to 18 units per hour. At around 9:30 am, his FSG was 164. Repeat blood work showed K 4.1, Ph 7.32 and bicarb 15. Allergies/Medications Allergies: Coded Allergies: No Known Allergies (03/07/18) Home Med List: Baclofen 10 MG TABLET 1 TAB PO TID PAIN (Reported) Buspirone HCl 30 MG TABLET 1 TAB PO BID PSYCH (Reported) Insulin Aspart (Novolog) 100 UNIT/ML VIAL 1 UNIT SC CONTINOUS INFUSION DM1 ( Reported) Lorazepam (Ativan) 0.5 MG TABLET 1 TAB PO BIDP PRN ANXIETY (Reported) Methadone Hydrochloride (Methadone HCl) 10 MG TABLET 3.5 TAB PO DAILY PAIN ( Reported) Sertraline HCl (Zoloft) 100 MG TABLET 1.5 TAB PO DAILY DEPRESSION (Reported) Valproic Acid 250 MG CAPSULE 2 TAB PO TID PSYCH (Reported) Review of Systems Review of Systems Constitutional: Reports: see HPI (patient is confused.). 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 Home Services at Home: None Primary Language: Gabonese Smoking Status: Current Everyday Smoker ETOH Use: denies use Illicit Drug Use: denies illicit drug use Functional Ability ADLs Independent: dressing, eating, toileting, bathing. Ambulation: independent IADLs Independent: shopping, housework, finances, food prep, telephone, transportation , medication admin. Exam & Diagnostic Data Last 24 Hrs of Vital Signs/I&O Vital Signs Date Time Temp Pulse Resp B/P B/P Pulse O2 O2 Flow FiO2 Mean Ox Delivery Rate 03/08 0335 97.7 122 22 104/62 97 Room Air 03/08 0236 96.8 111 22 112/58 98 Room Air 03/08 0137 96.7 110 18 105/55 98 Room Air 03/07 2350 96.7 90 22 168/116 100 Room Air Intake & Output 03/08 1600 03/08 0800 03/08 0000 Intake Total 7566 Output Total 1100 Balance 6466 Intake, IV 7566 Output, 150 Emesis Output, Urine 950 Patient 232 lb Weight Weight Bed scale Measurement Method Physical Exam General Appearance: lethargic, mild distress Ears, Nose, Throat: dry mucus membranes Neck: normal inspection Respiratory: normal breath sounds Cardiovascular: regular rate/rhythm Gastrointestinal: distention Extremities: no edema Labs/Pino Results: Laboratory Tests 03/08 03/08 03/08 1305 1300 0930 Blood Gas Bicarbonate Actual (22 - 26 MEQ/L) 21 L Mixed VBG pH (7.31 - 7.41 PH) 7.38 Mixed VBG pCO2 (41 - 51 TORR) 36 L Mixed VBG O2 Saturation (35 - 45 TORR) 31 L P-50 (Temp Corrected) N Carboxyhemoglobin (1.5 - 5.0 %) 0.8 L O2 Concentration % .21 Temperature (97.0 - 100.0 FARH) 97.7 O2 Delivery Method RA Chemistry Sodium (137 - 145 mmol/L) 140 140 Potassium (3.5 - 5.1 mmol/L) 4.0 4.1 Chloride (98 - 107 mmol/L) 111 H 112 H Carbon Dioxide (22 - 30 mmol/L) 20 L 15 L Anion Gap (5 - 16) 9 13 BUN (9 - 20 mg/dL) 19 21 H Creatinine (0.7 - 1.2 mg/dL) 0.8 1.0 Estimated GFR (>60 ml/min) > 60 > 60 Glucose (65 - 99 mg/dL) 122 H 164 H Lactic Acid (0.7 - 2.1 mmol/L) 2.1 Calcium (8.4 - 10.2 mg/dL) 7.6 L 7.4 L Phosphorus (2.5 - 4.5 mg/dL) 1.4 L 1.3 L Magnesium (1.6 - 2.3 mg/dL) 1.8 1.7 Total Bilirubin (0.2 - 1.3 mg/dL) 0.2 0.2 AST (17 - 59 U/L) 27 28 ALT (21 - 72 U/L) 51 53 Albumin (3.5 - 5.0 g/dL) 3.2 L 3.1 L Hematology CBC w Diff NO MAN DIFF REQ WBC (4.8 - 10.8 /CUMM) 8.7 RBC (4.70 - 6.10 /CUMM) 3.67 L Hgb (14.0 - 18.0 G/DL) 11.1 L Hct (42 - 52 %) 31.8 L MCV (80.0 - 94.0 FL) 86.7 MCH (27.0 - 31.0 PG) 30.2 MCHC (33.0 - 37.0 G/DL) 34.9 RDW (11.5 - 14.5 %) 13.8 Plt Count (130 - 400 /CUMM) 230 MPV (7.4 - 10.4 FL) 8.5 Gran % (42.2 - 75.2 %) 79.9 H Lymphocytes % (20.5 - 51.1 %) 12.6 L Monocytes % (1.7 - 9.3 %) 7.0 Eosinophils % (0 - 5 %) 0.1 Basophils % (0.0 - 2.0 %) 0.4 Absolute Granulocytes (1.4 - 6.5 /CUMM) 6.9 H Absolute Lymphocytes (1.2 - 3.4 /CUMM) 1.1 L Absolute Monocytes (0.10 - 0.60 /CUMM) 0.6 Absolute Eosinophils (0.0 - 0.7 /CUMM) 0 Absolute Basophils (0.0 - 0.2 /CUMM) 0 Miscellaneous Phlebotomy Draw Site LEFT 03/08 03/08 03/08 9647 4663 4282 Blood Gas pH (7.35 - 7.45 PH) 7.32 L pCO2 (35 - 45 TORR) 27 L pO2 (80 - 100 TORR) 83 HCO3 (21 - 28 MEQ/L) 14 L ABG O2 Sat (Measured) (>96.0 %) 96.0 P-50 (Temp Corrected) N Carboxyhemoglobin (1.5 - 5.0 %) 0.2 L O2 Concentration % .21 Temperature (97.0 - 100.0 FARH) 97.7 O2 Delivery Method RA Chemistry Sodium (137 - 145 mmol/L) 139 Potassium (3.5 - 5.1 mmol/L) 6.0 *H Chloride (98 - 107 mmol/L) 106 Carbon Dioxide (22 - 30 mmol/L) 6 *L Anion Gap (5 - 16) 27 H BUN (9 - 20 mg/dL) 29 H Creatinine (0.7 - 1.2 mg/dL) 1.5 H Estimated GFR (>60 ml/min) 50 L Glucose (65 - 99 mg/dL) 399 H Hemoglobin A1c (4.2 - 5.8 %) Pending Lactic Acid (0.7 - 2.1 mmol/L) 3.7 H 5.7 H Calcium (8.4 - 10.2 mg/dL) 8.1 L Phosphorus (2.5 - 4.5 mg/dL) 6.8 H Magnesium (1.6 - 2.3 mg/dL) 2.4 H Total Bilirubin (0.2 - 1.3 mg/dL) 0.4 AST (17 - 59 U/L) 36 ALT (21 - 72 U/L) 56 Troponin I (<0.11 ng/ml) < 0.01 Albumin (3.5 - 5.0 g/dL) 3.7 Hematology CBC w Diff NO MAN DIFF REQ WBC (4.8 - 10.8 /CUMM) 13.4 H RBC (4.70 - 6.10 /CUMM) 4.02 L Hgb (14.0 - 18.0 G/DL) 12.3 L Hct (42 - 52 %) 35.7 L MCV (80.0 - 94.0 FL) 88.7 MCH (27.0 - 31.0 PG) 30.5 MCHC (33.0 - 37.0 G/DL) 34.4 RDW (11.5 - 14.5 %) 13.6 Plt Count (130 - 400 /CUMM) 270 MPV (7.4 - 10.4 FL) 8.8 Gran % (42.2 - 75.2 %) 81.2 H Lymphocytes % (20.5 - 51.1 %) 15.1 L Monocytes % (1.7 - 9.3 %) 3.2 Eosinophils % (0 - 5 %) 0 Basophils % (0.0 - 2.0 %) 0.5 Absolute Granulocytes (1.4 - 6.5 /CUMM) 10.9 H Absolute Lymphocytes (1.2 - 3.4 /CUMM) 2.0 Absolute Monocytes (0.10 - 0.60 /CUMM) 0.4 Absolute Eosinophils (0.0 - 0.7 /CUMM) 0 Absolute Basophils (0.0 - 0.2 /CUMM) 0.1 Miscellaneous Phlebotomy Draw Site RIGHT RADIAL 03/08 03/08 0229 0015 Chemistry Sodium (137 - 145 mmol/L) 137 Potassium (3.5 - 5.1 mmol/L) 5.7 H Chloride (98 - 107 mmol/L) 97 L Carbon Dioxide (22 - 30 mmol/L) < 5 *L Anion Gap (5 - 16) 35.52983 H BUN (9 - 20 mg/dL) 30 H Creatinine (0.7 - 1.2 mg/dL) 1.6 H Estimated GFR (>60 ml/min) 46 L Glucose (65 - 99 mg/dL) 624 *H Calcium (8.4 - 10.2 mg/dL) 8.5 Phosphorus (2.5 - 4.5 mg/dL) 11.1 H Magnesium (1.6 - 2.3 mg/dL) 2.3 Total Bilirubin (0.2 - 1.3 mg/dL) 0.3 AST (17 - 59 U/L) 40 ALT (21 - 72 U/L) 64 Albumin (3.5 - 5.0 g/dL) 4.0 Amylase (30 - 110 U/L) 76 Hematology CBC w Diff MAN DIFF ORDERED WBC (4.8 - 10.8 /CUMM) 17.4 H RBC (4.70 - 6.10 /CUMM) 4.29 L Hgb (14.0 - 18.0 G/DL) 13.0 L Hct (42 - 52 %) 39.2 L MCV (80.0 - 94.0 FL) 91.3 MCH (27.0 - 31.0 PG) 30.3 MCHC (33.0 - 37.0 G/DL) 33.2 RDW (11.5 - 14.5 %) 13.6 Plt Count (130 - 400 /CUMM) 303 MPV (7.4 - 10.4 FL) 9.3 Segmented Neutrophils (42.2 - 75.2 %) 70 Band Neutrophils (0.0 - 5.0 %) 7 H Lymphocytes (20.5 - 51.1 %) 20 L Monocytes (1.7 - 9.3 %) 3 Platelet Estimate (ADEQUATE) ADEQUATE Normocytic RBCs VERIFIED Normochromic RBCs VERIFIED Toxicology Urine Opiates Screen (>2000 NG/ML) < 100 Methadone Screen (>300 NG/ML) > 735 H Barbiturate Screen (>200 NG/ML) < 60 Ur Phencyclidine Scrn (>25 NG/ML) < 6.00 Amphetamines Screen (>1000 NG/ML) < 100 U Benzodiazepines Scrn (>200 NG/ML) < 85 Urine Cocaine Screen (>300 NG/ML) < 50 Urine Cannabis Screen (>50 NG/ML) < 5.00 Urines Urinalysis LIGHT H Urine Color (YEL,AMB,STR) YEL Urine Clarity (CLEAR) CLEAR Urine pH (5.0 - 8.0) 6.0 Ur Specific [place] (1.001 - 1.035) 1.025 Urine Protein (NEG,<30 MG/DL) TRACE H Urine Ketones (NEG) >=80 Urine Nitrite (NEG) NEG Urine Bilirubin (NEG) NEG@ICTO Urine Urobilinogen (0.1 - 1.0 EU/dl) 0.2 Ur Leukocyte Esterase (NEG) NEG Ur Microscopic SEDIMENT EXAMINED Urine WBC (0 - 2 /HPF) 1-3 H Urine Bacteria (NEG/NONE) MOD H Hyaline Casts (0/LPF) RARE H Urine Mucus (FEW,NONE) FEW Urine Hemoglobin (NEG) SMALL H Urine Glucose (N MG/DL) >=1000 H 03/08 0005 Blood Gas Bicarbonate Actual (22 - 26 MEQ/L) 4.7 L Mixed VBG pH (7.31 - 7.41 PH) 6.95 L Mixed VBG pCO2 (41 - 51 TORR) 22 L Mixed VBG O2 Saturation (35 - 45 TORR) 63 H P-50 (Temp Corrected) N Carboxyhemoglobin (1.5 - 5.0 %) 0.8 L O2 Concentration % RA Temperature (97.0 - 100.0 FARH) 98.6 Chemistry Sodium (137 - 145 mmol/L) 127 L Potassium (3.5 - 5.1 mmol/L) 6.7 *H Chloride (98 - 107 mmol/L) 87 L Carbon Dioxide (22 - 30 mmol/L) < 5 *L Anion Gap (5 - 16) 35 H BUN (9 - 20 mg/dL) 29 H Creatinine (0.7 - 1.2 mg/dL) 1.6 H Estimated GFR (>60 ml/min) 46 L BUN/Creatinine Ratio (7 - 25 %) 18.1 Glucose (65 - 99 mg/dL) 853 *H Lactic Acid (0.7 - 2.1 mmol/L) 6.1 H Calcium (8.4 - 10.2 mg/dL) 8.6 Phosphorus (2.5 - 4.5 mg/dL) 12.4 H Magnesium (1.6 - 2.3 mg/dL) 2.4 H Total Bilirubin (0.2 - 1.3 mg/dL) 0.5 AST (17 - 59 U/L) 42 ALT (21 - 72 U/L) 69 Alkaline Phosphatase (< 127 U/L) 497 H Troponin I (<0.11 ng/ml) < 0.01 Total Protein (6.3 - 8.2 g/dL) 6.9 Albumin (3.5 - 5.0 g/dL) 4.3 Globulin (1.9 - 4.2 gm/dL) 2.6 Albumin/Globulin Ratio (1.1 - 2.2 %) 1.7 Lipase (23 - 300 U/L) 27 Coagulation PT (9.4 - 12.5 SEC) 11.2 INR (0.90 - 1.17) 1.03 APTT (25 - 37 SEC) 29 Hematology CBC w Diff NO MAN DIFF REQ WBC (4.8 - 10.8 /CUMM) 15.7 H RBC (4.70 - 6.10 /CUMM) 4.34 L Hgb (14.0 - 18.0 G/DL) 13.3 L Hct (42 - 52 %) 40.1 L MCV (80.0 - 94.0 FL) 92.5 MCH (27.0 - 31.0 PG) 30.7 MCHC (33.0 - 37.0 G/DL) 33.2 RDW (11.5 - 14.5 %) 14.0 Plt Count (130 - 400 /CUMM) 353 MPV (7.4 - 10.4 FL) 9.0 Gran % (42.2 - 75.2 %) 75.3 H Lymphocytes % (20.5 - 51.1 %) 19.9 L Monocytes % (1.7 - 9.3 %) 4.1 Eosinophils % (0 - 5 %) 0.5 Basophils % (0.0 - 2.0 %) 0.2 Absolute Granulocytes (1.4 - 6.5 /CUMM) 11.8 H Absolute Lymphocytes (1.2 - 3.4 /CUMM) 3.1 Absolute Monocytes (0.10 - 0.60 /CUMM) 0.7 H Absolute Eosinophils (0.0 - 0.7 /CUMM) 0.1 Absolute Basophils (0.0 - 0.2 /CUMM) 0 Miscellaneous Phlebotomy Draw Site RAC Toxicology Serum Alcohol (<10 MG/DL) < 10.0 Acetone Level (NEGATIVE) POSITIVE AT 1:32 DIL Assessment/Plan Assessment/Plan 47 y.o male hx of diabetes type 1 on T slim insulin pump, was admitted for DKA. DKA management: 1. continue NPO for now; 2. stop bicarb drip; 3. decrease insulin drip rate to 10 units per hour for now; monitor FSGs every one hour and then insulin drip will be further decreased if his glucose level remains low; the goal of glucose level is between 140 and 180 mg/dl; 4. change IVF to D51/2 NS with 20 meq of KCL at 150 ml/hour; 5. monitor electrolytes every 3-6 hours; monitor in and out; then his IVF will be adjusted accordingy. will follow. Please feel free to contact me if there are any questions. Consult Acknowledgment - Thank you for your consult request.
[2018-03-08 20:00] VITALS: BP 148/82
[2018-03-08 22:00] VITALS: BP 143/92
[2018-03-09] VITALS (17 sets, daily range): BP systolic 140–194; BP diastolic 82–108
[2018-03-09 05:03] LABS: ABSOLUTE BASOPHIL COUNT 0 /CUMM (0.0-0.2); ABSOLUTE EOSINOPHIL COUNT 0 /CUMM (0.0-0.7); ABSOLUTE GRANULOCYTE CT 5.5 /CUMM (1.4-6.5); ABSOLUTE LYMPH COUNT 1.4 /CUMM (1.2-3.4); ABSOLUTE MONOCYTE COUNT 0.5 /CUMM (0.10-0.60); BASOPHIL % 0.3 % (0.0-2.0); EOSINOPHIL % 0.1 % (0-5); GRANULOCYTE % 74.2 % (42.2-75.2); MEAN CORPUSCULAR HGB 30.5 PG (27.0-31.0); MEAN CORPUSCULAR HGB CONC 34.4 G/DL (33.0-37.0); MEAN CORPUSCULAR VOLUME 88.6 FL (80.0-94.0); PLATELET COUNT 231 /CUMM (130-400); RBC DISTRIBUTION WIDTH 14.2 % (11.5-14.5); RED BLOOD CELL CT 3.72 /CUMM (4.70-6.10); WHITE BLOOD CELL COUNT 7.5 /CUMM (4.8-10.8)
--- NOTE | 2018-03-09 07:15 | PN- Resident CRCU ---
Subjective HPI/CRCU Issues: DKA with pH on VBG 6.9 (Improving) Coffee ground emesis (Possible peptic ulcer or Susu Murphy tear) Elevated ALP Chronic pain on methadone, NSAIDs Diabetic neuropathy MELO (Resolved) 24 Hour Events: No overnight events. Patient remained afebrile. Seen and examined this morning. He is on room air maintaining saturation 97%. Patient is still complaining of mild nausea. Patient looked lethargic. He is also complaining of abdominal pain 5/10. Although patient is able to pass gas. Patient is also complaining of leg pain 9/10. He was taking methadone 35 mg daily for his pain. Patient's ciwa score overnight remained 5. His fasting blood sugar level this morning was 230. Patient is nothing by mouth and possibly he will go for endoscopy today. Objective Vital Signs & I&O Last 8 Hrs of Vitals and I&O: Intake & Output 03/09 1600 03/09 0800 03/09 0000 Intake Total 992 1059 Output Total 700 620 Balance 292 439 Intake, IV 992 1059 Intake, Oral 0 0 Number 0 0 Bowel Movements Output, Urine 700 620 Laboratory Tests 03/09 03/08 03/08 0425 1855 1305 Blood Gas Bicarbonate Actual (22 - 26 MEQ/L) 21 L Mixed VBG pH (7.31 - 7.41 PH) 7.38 Mixed VBG pCO2 (41 - 51 TORR) 36 L Mixed VBG O2 Saturation (35 - 45 TORR) 31 L P-50 (Temp Corrected) N Carboxyhemoglobin (1.5 - 5.0 %) 0.8 L O2 Concentration % .21 Temperature (97.0 - 100.0 FARH) 97.7 O2 Delivery Method RA Chemistry Sodium (137 - 145 mmol/L) 138 139 Potassium (3.5 - 5.1 mmol/L) 4.2 4.9 Chloride (98 - 107 mmol/L) 110 H 110 H Carbon Dioxide (22 - 30 mmol/L) 21 L 22 Anion Gap (5 - 16) 7 7 BUN (9 - 20 mg/dL) 10 16 Creatinine (0.7 - 1.2 mg/dL) 0.7 0.8 Estimated GFR (>60 ml/min) > 60 > 60 Glucose (65 - 99 mg/dL) 208 H 177 H Calcium (8.4 - 10.2 mg/dL) 8.1 L 7.7 L Phosphorus (2.5 - 4.5 mg/dL) 2.0 L 2.7 Magnesium (1.6 - 2.3 mg/dL) 1.9 1.8 Total Bilirubin (0.2 - 1.3 mg/dL) 0.4 0.2 Direct Bilirubin (< 0.4 mg/dL) 0.3 AST (17 - 59 U/L) 24 25 ALT (21 - 72 U/L) 51 57 Alkaline Phosphatase (< 127 U/L) 194 H Total Protein (6.3 - 8.2 g/dL) 5.8 L Albumin (3.5 - 5.0 g/dL) 3.1 L 3.1 L Hematology CBC w Diff NO MAN DIFF REQ WBC (4.8 - 10.8 /CUMM) 7.5 RBC (4.70 - 6.10 /CUMM) 3.72 L Hgb (14.0 - 18.0 G/DL) 11.4 L Hct (42 - 52 %) 33.0 L MCV (80.0 - 94.0 FL) 88.6 MCH (27.0 - 31.0 PG) 30.5 MCHC (33.0 - 37.0 G/DL) 34.4 RDW (11.5 - 14.5 %) 14.2 Plt Count (130 - 400 /CUMM) 231 MPV (7.4 - 10.4 FL) 8.0 Gran % (42.2 - 75.2 %) 74.2 Lymphocytes % (20.5 - 51.1 %) 18.2 L Monocytes % (1.7 - 9.3 %) 7.2 Eosinophils % (0 - 5 %) 0.1 Basophils % (0.0 - 2.0 %) 0.3 Absolute Granulocytes (1.4 - 6.5 /CUMM) 5.5 Absolute Lymphocytes (1.2 - 3.4 /CUMM) 1.4 Absolute Monocytes (0.10 - 0.60 /CUMM) 0.5 Absolute Eosinophils (0.0 - 0.7 /CUMM) 0 Absolute Basophils (0.0 - 0.2 /CUMM) 0 Immunology MARCO Titer Pending Anti-Nuclear Antibody Pending Miscellaneous Ref Lab Test Result Pending Phlebotomy Draw Site LEFT 03/08 03/08 03/08 1300 1123 0930 Chemistry Sodium (137 - 145 mmol/L) 140 140 Potassium (3.5 - 5.1 mmol/L) 4.0 4.1 Chloride (98 - 107 mmol/L) 111 H 112 H Carbon Dioxide (22 - 30 mmol/L) 20 L 15 L Anion Gap (5 - 16) 9 13 BUN (9 - 20 mg/dL) 19 21 H Creatinine (0.7 - 1.2 mg/dL) 0.8 1.0 Estimated GFR (>60 ml/min) > 60 > 60 Glucose (65 - 99 mg/dL) 122 H 164 H Lactic Acid (0.7 - 2.1 mmol/L) Cancelled 2.1 Calcium (8.4 - 10.2 mg/dL) 7.6 L 7.4 L Phosphorus (2.5 - 4.5 mg/dL) 1.4 L 1.3 L Magnesium (1.6 - 2.3 mg/dL) 1.8 1.7 Total Bilirubin (0.2 - 1.3 mg/dL) 0.2 0.2 AST (17 - 59 U/L) 27 28 ALT (21 - 72 U/L) 51 53 Albumin (3.5 - 5.0 g/dL) 3.2 L 3.1 L Hematology CBC w Diff NO MAN DIFF REQ WBC (4.8 - 10.8 /CUMM) 8.7 RBC (4.70 - 6.10 /CUMM) 3.67 L Hgb (14.0 - 18.0 G/DL) 11.1 L Hct (42 - 52 %) 31.8 L MCV (80.0 - 94.0 FL) 86.7 MCH (27.0 - 31.0 PG) 30.2 MCHC (33.0 - 37.0 G/DL) 34.9 RDW (11.5 - 14.5 %) 13.8 Plt Count (130 - 400 /CUMM) 230 MPV (7.4 - 10.4 FL) 8.5 Gran % (42.2 - 75.2 %) 79.9 H Lymphocytes % (20.5 - 51.1 %) 12.6 L Monocytes % (1.7 - 9.3 %) 7.0 Eosinophils % (0 - 5 %) 0.1 Basophils % (0.0 - 2.0 %) 0.4 Absolute Granulocytes (1.4 - 6.5 /CUMM) 6.9 H Absolute Lymphocytes (1.2 - 3.4 /CUMM) 1.1 L Absolute Monocytes (0.10 - 0.60 /CUMM) 0.6 Absolute Eosinophils (0.0 - 0.7 /CUMM) 0 Absolute Basophils (0.0 - 0.2 /CUMM) 0 03/08 0840 Blood Gas pH (7.35 - 7.45 PH) 7.32 L pCO2 (35 - 45 TORR) 27 L pO2 (80 - 100 TORR) 83 HCO3 (21 - 28 MEQ/L) 14 L ABG O2 Sat (Measured) (>96.0 %) 96.0 P-50 (Temp Corrected) N Carboxyhemoglobin (1.5 - 5.0 %) 0.2 L O2 Concentration % .21 Temperature (97.0 - 100.0 FARH) 97.7 O2 Delivery Method RA Miscellaneous Phlebotomy Draw Site RIGHT RADIAL Exam General Appearance: well developed/nourished, no apparent distress, awake Head: atraumatic, normal appearance Neck: normal inspection, supple Respiratory: normal breath sounds, chest non-tender, no respiratory distress Cardiovascular: regular rate/rhythm Gastrointestinal: Mild distension Extremities: normal inspection, no edema Skin Temp/Moisture Exam: Warm/Dry Sepsis Skin Exam (color): Normal for Ethnicity Current Medications: Current Medications Sig/Ami Start time Last Medication Dose Route Stop Time Status Admin Acetaminophen 1,000 MG ONCE ONE 03/08 1000 DC 03/08 N/A 1 UNIT IV 03/08 1014 1127 Dextrose/Sodium 1,000 ML Q6H 03/08 1030 DC Chloride IV Heparin Sodium 5,000 UNIT Q8 03/08 1400 AC 03/08 (Porcine) SC 2158 Insulin Aspart 0 Q4 03/09 1000 AC SC Insulin Detemir 12 UNITS BID 03/09 0900 AC SC Insulin Detemir 10 UNITS BID 03/08 1745 DC 03/08 SC 1755 Insulin Human Regular 0 Q4 03/08 1800 DC 03/09 SC 0617 Insulin Human Regular 100 UNIT Q5H 03/08 1300 DC Sodium Chloride 100 ML IV 03/08 1900 Insulin Human Regular 100 UNIT Q24H 03/08 0200 DC 03/08 Sodium Chloride 100 ML IV 03/08 1259 0247 Lorazepam 2 MG Q6 03/08 2359 AC 03/08 PO 2307 Lorazepam 0 .STK-MED ONE 03/08 1918 DC .ROUTE Lorazepam 0 Q1P PRN 03/08 1915 AC 03/09 IV 0426 Lorazepam 0.25 MG ONCE ONE 03/08 1545 DC 03/08 IV 03/08 1546 1551 Lorazepam 0.5 MG ONCE ONE 03/08 1015 DC 03/08 IV 03/08 1016 1008 Lorazepam 0 .STK-MED ONE 03/08 1008 DC .ROUTE Morphine Sulfate 0 .STK-MED ONE 03/09 08 DC .ROUTE Morphine Sulfate 1 MG ONCE ONE 03/09 0815 DC 03/09 IV 03/09 0816 0825 Morphine Sulfate 0 .STK-MED ONE 03/08 0850 DC .ROUTE Morphine Sulfate 2 MG ONCE ONE 03/08 0845 DC 03/08 IV 03/08 0846 0851 Ondansetron HCl 4 MG Q6P PRN 03/08 0345 AC 03/09 IV 0208 Pantoprazole Sodium 40 MG BID 03/08 0400 AC 03/09 IV 0825 Phosphate 250 MG ONCE ONE 03/08 1400 DC 03/08 PO 03/08 1401 1539 Potassium Chloride 40 MEQ Q8H 03/08 1530 AC 03/09 Dextrose/Sodium 1,000 ML IV 0304 Chloride Potassium Chloride 40 MEQ Q6H 03/08 1115 DC 03/08 Dextrose/Sodium 1,000 ML IV 1125 Chloride Potassium Chloride 40 MEQ ONCE ONE 03/08 1030 DC 03/08 PO 03/08 1031 1127 Potassium Chloride 40 MEQ CONTINOUS INFUSION 03/08 1030 CAN IV Potassium Phosphate 15 mMol ONE ONE 03/08 1400 DC 03/08 Dextrose/Water 250 ML IV 03/08 1804 1539 Promethazine HCl 25 MG ONCE ONE 03/08 1545 DC 03/08 IV 03/08 1546 1550 Sodium Bicarbonate 150 MEQ 150 MLS/HR 03/09 0900 DC 03/08 Dextrose/Water 1,000 ML IV 03/09 1539 0625 Sodium Chloride 1,000 ML Q8H 03/08 0745 DC IV Sodium Chloride 1,000 ML BOLUS ONE 03/08 0730 DC 03/08 IV 03/08 0929 0819 Thiamine HCl 50 MG DAILY 03/09 0900 AC PO Impression/Plan Impression/Problem List Impression: 47 YO M with PMH of anxiety, depression, chronic pain, and type 1 diabetes presents with complaints of nausea, vomiting, diarrhea, and hyperglycemia for 1 day. Patient was in his normal state of health until Amari evening, when he endorses having a significant amount of [place] food, after which he was nauseous and vomiting. In the ED, patient was found to have significantly elevated glucose (>800), elevated K, UA positive for ketones, lactic acid of 6.1 , and VBG, PH of 6.95. He was admitted to the ICU for management of DKA. Toxic screen is positive for methadone. INR 1.03. LFTs normal except ALP. Urinalysis did show ketones with trace proteins, > 1000 glucose, hyaline casts. Lactic acid 5.7. Following the patient in ICU for following problems: DKA:(IMPROVING) -Due to poorly controlled type 1 DM. -Continue IV fluids with potassium supplement at the rate of 125 mL per hour. -Continue insulin NovoLog according to sliding scale subcutaneous. -Continues Levemir 12 units subcutaneous twice a day -Anion gap today is 7 -His blood sugar level this morning was 230 -His potassium was 4.2 today -Follow-up endocrinology recommendations. Coffee-ground emesis: -Possibly due to peptic ulcer or Susu-Murphy tear. -Endoscopy was not done today considering patient has alcohol withdrawal symptoms. -Continue IV Protonix -Avoid NSAIDs -Follow-up his H&H -Continue IV antiemetic as needed and we will monitor his QTC. This morning his QTC was 440 -Nothing by mouth midnight for endoscopy tomorrow. We will keep the patient on IV fluids over midnight but same insulin NovoLog sliding scale. Chronic pain: -Continue methadone 35 mg daily. -Continue IV Tylenol -Continue when necessary morphine. -Follow-up pain pathway. Alcohol withdrawal: -Patient reported that he is drinking alcohol every day. -Continue CIWA protocol, ativan 1 mg when necessary -Continue Ativan 2 mg every 6 hours -Continue thiamine supplementation -His CIWA score this morning was 5 Elevated blood pressure: -Could be due to alcohol withdrawal or undiagnosed hypertension. -We will start him on losartan 25 mg and amlodipine 2.5 mg -A patient remained tachycardic we will give him beta sommer low dose. -We'll monitor patient's blood pressure. MELO:(Resolved) -Possibly prerenal and in the setting of using losartan -On admission his creatinine was 1.6 and BUN was 29 -Today his creatinine is 0.7 and BUN is 10 -Avoid nephrotoxic medications Elevated alkaline phosphatase: -Possibly hepatic in origin but no signs of biliary pathology other than hepatic steatosis. -His ALT/AST and bilirubin levels are within normal limits. -We will keep monitoring it. History of anxiety and depression: -Holding sertraline and buspirone Diet: -Clear liquids DVT prophylaxis: Mechanical and subcutaneous heparin CODE STATUS: Full code Problem List: 1. GI bleed 2. DKA (diabetic ketoacidoses) Pain Ratin Pain Location: legs Pain Plan: pain pathway Tomorrow's Labs & Rationales: cbc/icu bundle Plan DVT/Prophylaxis: mechanical, pharmacological
--- NOTE | 2018-03-09 11:02 | PN- CRCU ---
Subjective HPI/Critical Care Issues: No overnight events. Patient remained afebrile. Seen and examined this morning. He is on room air maintaining saturation 97%. Patient is still complaining of mild nausea. Patient looked lethargic. He is also complaining of abdominal pain 5/10. Although patient is able to pass gas. Patient is also complaining of leg pain 9/10. He was taking methadone 35 mg daily for his pain. Patient's ciwa score overnight remained 5. His fasting blood sugar level this morning was 230. Patient is nothing by mouth and possibly he will go for endoscopy today. Objective Current Medications: Current Medications Sig/Ami Start time Last Medication Dose Route Stop Time Status Admin Heparin Sodium 5,000 UNIT Q8 03/08 1400 AC 03/08 (Porcine) SC 2158 Insulin Aspart 0 Q4 03/09 1000 AC SC Insulin Detemir 12 UNITS BID 03/09 0900 AC 03/09 SC 0951 Insulin Detemir 10 UNITS BID 03/08 1745 DC 03/08 SC 1755 Insulin Human Regular 0 Q4 03/08 1800 DC 03/09 SC 0617 Insulin Human Regular 100 UNIT Q5H 03/08 1300 DC Sodium Chloride 100 ML IV 03/08 1900 Insulin Human Regular 100 UNIT Q24H 03/08 0200 DC 03/08 Sodium Chloride 100 ML IV 03/08 1259 0247 Lorazepam 2 MG Q6 03/08 2359 AC 03/08 PO 2307 Lorazepam 0 .STK-MED ONE 03/088 DC .ROUTE Lorazepam 0 Q1P PRN 03/08 1915 AC 03/09 IV 0426 Lorazepam 0.25 MG ONCE ONE 03/08 1545 DC 03/08 IV 03/08 1546 1551 Morphine Sulfate 0 .STK-MED ONE 03/09 0819 DC .ROUTE Morphine Sulfate 1 MG ONCE ONE 03/09 0815 DC 03/09 IV 03/09 0816 0825 Ondansetron HCl 4 MG Q6P PRN 03/08 0345 AC 03/09 IV 0208 Pantoprazole Sodium 40 MG BID 03/08 0400 AC 03/09 IV 0825 Phosphate 250 MG ONCE ONE 03/08 1400 DC 08 PO 03/08 1401 1539 Potassium Chloride 40 MEQ Q8H 03/08 1530 AC 03/09 Dextrose/Sodium 1,000 ML IV 0304 Chloride Potassium Chloride 40 MEQ Q6H 03/08 1115 DC 03/08 Dextrose/Sodium 1,000 ML IV 1125 Chloride Potassium Chloride 40 MEQ CONTINOUS INFUSION 03/08 1030 CAN IV Potassium Phosphate 15 mMol ONE ONE 03/08 1400 DC 03/08 Dextrose/Water 250 ML IV 03/08 1804 1539 Promethazine HCl 25 MG ONCE ONE 03/08 1545 DC 03/08 IV 03/08 1546 1550 Sodium Bicarbonate 150 MEQ 150 MLS/HR 03/09 0900 DC 03/08 Dextrose/Water 1,000 ML IV 03/09 1539 0625 Thiamine HCl 50 MG DAILY 03/09 0900 AC PO Vital Signs & I&O Last 24 Hrs of Vitals and I&O: Vital Signs Date Time Temp Pulse Resp B/P B/P Pulse O2 O2 Flow FiO2 Mean Ox Delivery Rate 03/09 0600 97.8 66 20 169/95 03/09 0400 97.8 64 24 158/82 03/09 0200 99.0 66 22 167/93 03/09 0000 99.0 66 20 140/88 03/09 0000 99.0 66 20 140/88 97 Room Air Room Air 03/08 2200 98.5 66 30 143/92 03/08 2000 98.5 70 26 148/82 Intake & Output 03/09 1600 03/09 0800 03/09 0000 Intake Total 992 1059 Output Total 700 620 Balance 292 439 Intake, IV 992 1059 Intake, Oral 0 0 Number 0 0 Bowel Movements Output, Urine 700 620 Laboratory Tests 03/09 03/08 03/08 0425 1855 1305 Blood Gas Bicarbonate Actual (22 - 26 MEQ/L) 21 L Mixed VBG pH (7.31 - 7.41 PH) 7.38 Mixed VBG pCO2 (41 - 51 TORR) 36 L Mixed VBG O2 Saturation (35 - 45 TORR) 31 L P-50 (Temp Corrected) N Carboxyhemoglobin (1.5 - 5.0 %) 0.8 L O2 Concentration % .21 Temperature (97.0 - 100.0 FARH) 97.7 O2 Delivery Method RA Chemistry Sodium (137 - 145 mmol/L) 138 139 Potassium (3.5 - 5.1 mmol/L) 4.2 4.9 Chloride (98 - 107 mmol/L) 110 H 110 H Carbon Dioxide (22 - 30 mmol/L) 21 L 22 Anion Gap (5 - 16) 7 7 BUN (9 - 20 mg/dL) 10 16 Creatinine (0.7 - 1.2 mg/dL) 0.7 0.8 Estimated GFR (>60 ml/min) > 60 > 60 Glucose (65 - 99 mg/dL) 208 H 177 H Calcium (8.4 - 10.2 mg/dL) 8.1 L 7.7 L Phosphorus (2.5 - 4.5 mg/dL) 2.0 L 2.7 Magnesium (1.6 - 2.3 mg/dL) 1.9 1.8 Total Bilirubin (0.2 - 1.3 mg/dL) 0.4 0.2 Direct Bilirubin (< 0.4 mg/dL) 0.3 AST (17 - 59 U/L) 24 25 ALT (21 - 72 U/L) 51 57 Alkaline Phosphatase (< 127 U/L) 194 H Total Protein (6.3 - 8.2 g/dL) 5.8 L Albumin (3.5 - 5.0 g/dL) 3.1 L 3.1 L Hematology CBC w Diff NO MAN DIFF REQ WBC (4.8 - 10.8 /CUMM) 7.5 RBC (4.70 - 6.10 /CUMM) 3.72 L Hgb (14.0 - 18.0 G/DL) 11.4 L Hct (42 - 52 %) 33.0 L MCV (80.0 - 94.0 FL) 88.6 MCH (27.0 - 31.0 PG) 30.5 MCHC (33.0 - 37.0 G/DL) 34.4 RDW (11.5 - 14.5 %) 14.2 Plt Count (130 - 400 /CUMM) 231 MPV (7.4 - 10.4 FL) 8.0 Gran % (42.2 - 75.2 %) 74.2 Lymphocytes % (20.5 - 51.1 %) 18.2 L Monocytes % (1.7 - 9.3 %) 7.2 Eosinophils % (0 - 5 %) 0.1 Basophils % (0.0 - 2.0 %) 0.3 Absolute Granulocytes (1.4 - 6.5 /CUMM) 5.5 Absolute Lymphocytes (1.2 - 3.4 /CUMM) 1.4 Absolute Monocytes (0.10 - 0.60 /CUMM) 0.5 Absolute Eosinophils (0.0 - 0.7 /CUMM) 0 Absolute Basophils (0.0 - 0.2 /CUMM) 0 Immunology MARCO Titer Pending Anti-Nuclear Antibody Pending Miscellaneous Ref Lab Test Result Pending Phlebotomy Draw Site LEFT 03/08 03/08 03/08 1300 1123 0930 Chemistry Sodium (137 - 145 mmol/L) 140 140 Potassium (3.5 - 5.1 mmol/L) 4.0 4.1 Chloride (98 - 107 mmol/L) 111 H 112 H Carbon Dioxide (22 - 30 mmol/L) 20 L 15 L Anion Gap (5 - 16) 9 13 BUN (9 - 20 mg/dL) 19 21 H Creatinine (0.7 - 1.2 mg/dL) 0.8 1.0 Estimated GFR (>60 ml/min) > 60 > 60 Glucose (65 - 99 mg/dL) 122 H 164 H Lactic Acid (0.7 - 2.1 mmol/L) Cancelled 2.1 Calcium (8.4 - 10.2 mg/dL) 7.6 L 7.4 L Phosphorus (2.5 - 4.5 mg/dL) 1.4 L 1.3 L Magnesium (1.6 - 2.3 mg/dL) 1.8 1.7 Total Bilirubin (0.2 - 1.3 mg/dL) 0.2 0.2 AST (17 - 59 U/L) 27 28 ALT (21 - 72 U/L) 51 53 Albumin (3.5 - 5.0 g/dL) 3.2 L 3.1 L Hematology CBC w Diff NO MAN DIFF REQ WBC (4.8 - 10.8 /CUMM) 8.7 RBC (4.70 - 6.10 /CUMM) 3.67 L Hgb (14.0 - 18.0 G/DL) 11.1 L Hct (42 - 52 %) 31.8 L MCV (80.0 - 94.0 FL) 86.7 MCH (27.0 - 31.0 PG) 30.2 MCHC (33.0 - 37.0 G/DL) 34.9 RDW (11.5 - 14.5 %) 13.8 Plt Count (130 - 400 /CUMM) 230 MPV (7.4 - 10.4 FL) 8.5 Gran % (42.2 - 75.2 %) 79.9 H Lymphocytes % (20.5 - 51.1 %) 12.6 L Monocytes % (1.7 - 9.3 %) 7.0 Eosinophils % (0 - 5 %) 0.1 Basophils % (0.0 - 2.0 %) 0.4 Absolute Granulocytes (1.4 - 6.5 /CUMM) 6.9 H Absolute Lymphocytes (1.2 - 3.4 /CUMM) 1.1 L Absolute Monocytes (0.10 - 0.60 /CUMM) 0.6 Absolute Eosinophils (0.0 - 0.7 /CUMM) 0 Absolute Basophils (0.0 - 0.2 /CUMM) 0 03/08 03/08 0840 0627 Blood Gas pH (7.35 - 7.45 PH) 7.32 L pCO2 (35 - 45 TORR) 27 L pO2 (80 - 100 TORR) 83 HCO3 (21 - 28 MEQ/L) 14 L ABG O2 Sat (Measured) (>96.0 %) 96.0 P-50 (Temp Corrected) N Carboxyhemoglobin (1.5 - 5.0 %) 0.2 L O2 Concentration % .21 Temperature (97.0 - 100.0 FARH) 97.7 O2 Delivery Method RA Miscellaneous Phlebotomy Draw Site RIGHT RADIAL Urines Ur Random Creatinine Cancelled Ur Random Sodium Cancelled Ur Random Potassium Cancelled Fraction Sodium Excret Cancelled 03/08 03/08 0510 0229 Chemistry Sodium (137 - 145 mmol/L) 139 Potassium (3.5 - 5.1 mmol/L) 6.0 *H Chloride (98 - 107 mmol/L) 106 Carbon Dioxide (22 - 30 mmol/L) 6 *L Anion Gap (5 - 16) 27 H BUN (9 - 20 mg/dL) 29 H Creatinine (0.7 - 1.2 mg/dL) 1.5 H Estimated GFR (>60 ml/min) 50 L Glucose (65 - 99 mg/dL) 399 H Hemoglobin A1c (4.2 - 5.8 %) 10.0 H Lactic Acid (0.7 - 2.1 mmol/L) 3.7 H 5.7 H Calcium (8.4 - 10.2 mg/dL) 8.1 L Phosphorus (2.5 - 4.5 mg/dL) 6.8 H Magnesium (1.6 - 2.3 mg/dL) 2.4 H Total Bilirubin (0.2 - 1.3 mg/dL) 0.4 AST (17 - 59 U/L) 36 ALT (21 - 72 U/L) 56 Troponin I (<0.11 ng/ml) < 0.01 Albumin (3.5 - 5.0 g/dL) 3.7 Hematology CBC w Diff NO MAN DIFF REQ WBC (4.8 - 10.8 /CUMM) 13.4 H RBC (4.70 - 6.10 /CUMM) 4.02 L Hgb (14.0 - 18.0 G/DL) 12.3 L Hct (42 - 52 %) 35.7 L MCV (80.0 - 94.0 FL) 88.7 MCH (27.0 - 31.0 PG) 30.5 MCHC (33.0 - 37.0 G/DL) 34.4 RDW (11.5 - 14.5 %) 13.6 Plt Count (130 - 400 /CUMM) 270 MPV (7.4 - 10.4 FL) 8.8 Gran % (42.2 - 75.2 %) 81.2 H Lymphocytes % (20.5 - 51.1 %) 15.1 L Monocytes % (1.7 - 9.3 %) 3.2 Eosinophils % (0 - 5 %) 0 Basophils % (0.0 - 2.0 %) 0.5 Absolute Granulocytes (1.4 - 6.5 /CUMM) 10.9 H Absolute Lymphocytes (1.2 - 3.4 /CUMM) 2.0 Absolute Monocytes (0.10 - 0.60 /CUMM) 0.4 Absolute Eosinophils (0.0 - 0.7 /CUMM) 0 Absolute Basophils (0.0 - 0.2 /CUMM) 0.1 03/08 03/08 0229 0015 Chemistry Sodium (137 - 145 mmol/L) 137 Potassium (3.5 - 5.1 mmol/L) 5.7 H Chloride (98 - 107 mmol/L) 97 L Carbon Dioxide (22 - 30 mmol/L) < 5 *L Anion Gap (5 - 16) 35.89080 H BUN (9 - 20 mg/dL) 30 H Creatinine (0.7 - 1.2 mg/dL) 1.6 H Estimated GFR (>60 ml/min) 46 L Glucose (65 - 99 mg/dL) 624 *H Calcium (8.4 - 10.2 mg/dL) 8.5 Phosphorus (2.5 - 4.5 mg/dL) 11.1 H Magnesium (1.6 - 2.3 mg/dL) 2.3 Total Bilirubin (0.2 - 1.3 mg/dL) 0.3 AST (17 - 59 U/L) 40 ALT (21 - 72 U/L) 64 Albumin (3.5 - 5.0 g/dL) 4.0 Amylase (30 - 110 U/L) 76 Hematology CBC w Diff MAN DIFF ORDERED WBC (4.8 - 10.8 /CUMM) 17.4 H RBC (4.70 - 6.10 /CUMM) 4.29 L Hgb (14.0 - 18.0 G/DL) 13.0 L Hct (42 - 52 %) 39.2 L MCV (80.0 - 94.0 FL) 91.3 MCH (27.0 - 31.0 PG) 30.3 MCHC (33.0 - 37.0 G/DL) 33.2 RDW (11.5 - 14.5 %) 13.6 Plt Count (130 - 400 /CUMM) 303 MPV (7.4 - 10.4 FL) 9.3 Segmented Neutrophils (42.2 - 75.2 %) 70 Band Neutrophils (0.0 - 5.0 %) 7 H Lymphocytes (20.5 - 51.1 %) 20 L Monocytes (1.7 - 9.3 %) 3 Platelet Estimate (ADEQUATE) ADEQUATE Normocytic RBCs VERIFIED Normochromic RBCs VERIFIED Urines Urinalysis LIGHT H Urine Color (YEL,AMB,STR) YEL Urine Clarity (CLEAR) CLEAR Urine pH (5.0 - 8.0) 6.0 Ur Specific [place] (1.001 - 1.035) 1.025 Urine Protein (NEG,<30 MG/DL) TRACE H Urine Ketones (NEG) >=80 Urine Nitrite (NEG) NEG Urine Bilirubin (NEG) NEG@ICTO Urine Urobilinogen (0.1 - 1.0 EU/dl) 0.2 Ur Leukocyte Esterase (NEG) NEG Ur Microscopic SEDIMENT EXAMINED Urine WBC (0 - 2 /HPF) 1-3 H Urine Bacteria (NEG/NONE) MOD H Hyaline Casts (0/LPF) RARE H Urine Mucus (FEW,NONE) FEW Urine Hemoglobin (NEG) SMALL H Urine Glucose (N MG/DL) >=1000 H 03/08 03/08 0015 0005 Blood Gas Bicarbonate Actual (22 - 26 MEQ/L) 4.7 L Mixed VBG pH (7.31 - 7.41 PH) 6.95 L Mixed VBG pCO2 (41 - 51 TORR) 22 L Mixed VBG O2 Saturation (35 - 45 TORR) 63 H P-50 (Temp Corrected) N Carboxyhemoglobin (1.5 - 5.0 %) 0.8 L O2 Concentration % RA Temperature (97.0 - 100.0 FARH) 98.6 Chemistry Sodium (137 - 145 mmol/L) 127 L Potassium (3.5 - 5.1 mmol/L) 6.7 *H Chloride (98 - 107 mmol/L) 87 L Carbon Dioxide (22 - 30 mmol/L) < 5 *L Anion Gap (5 - 16) 35 H BUN (9 - 20 mg/dL) 29 H Creatinine (0.7 - 1.2 mg/dL) 1.6 H Estimated GFR (>60 ml/min) 46 L BUN/Creatinine Ratio (7 - 25 %) 18.1 Glucose (65 - 99 mg/dL) 853 *H Lactic Acid (0.7 - 2.1 mmol/L) 6.1 H Calcium (8.4 - 10.2 mg/dL) 8.6 Phosphorus (2.5 - 4.5 mg/dL) 12.4 H Magnesium (1.6 - 2.3 mg/dL) 2.4 H Total Bilirubin (0.2 - 1.3 mg/dL) 0.5 AST (17 - 59 U/L) 42 ALT (21 - 72 U/L) 69 Alkaline Phosphatase (< 127 U/L) 497 H Troponin I (<0.11 ng/ml) < 0.01 Total Protein (6.3 - 8.2 g/dL) 6.9 Albumin (3.5 - 5.0 g/dL) 4.3 Globulin (1.9 - 4.2 gm/dL) 2.6 Albumin/Globulin Ratio (1.1 - 2.2 %) 1.7 Lipase (23 - 300 U/L) 27 Coagulation PT (9.4 - 12.5 SEC) 11.2 INR (0.90 - 1.17) 1.03 APTT (25 - 37 SEC) 29 Hematology CBC w Diff NO MAN DIFF REQ WBC (4.8 - 10.8 /CUMM) 15.7 H RBC (4.70 - 6.10 /CUMM) 4.34 L Hgb (14.0 - 18.0 G/DL) 13.3 L Hct (42 - 52 %) 40.1 L MCV (80.0 - 94.0 FL) 92.5 MCH (27.0 - 31.0 PG) 30.7 MCHC (33.0 - 37.0 G/DL) 33.2 RDW (11.5 - 14.5 %) 14.0 Plt Count (130 - 400 /CUMM) 353 MPV (7.4 - 10.4 FL) 9.0 Gran % (42.2 - 75.2 %) 75.3 H Lymphocytes % (20.5 - 51.1 %) 19.9 L Monocytes % (1.7 - 9.3 %) 4.1 Eosinophils % (0 - 5 %) 0.5 Basophils % (0.0 - 2.0 %) 0.2 Absolute Granulocytes (1.4 - 6.5 /CUMM) 11.8 H Absolute Lymphocytes (1.2 - 3.4 /CUMM) 3.1 Absolute Monocytes (0.10 - 0.60 /CUMM) 0.7 H Absolute Eosinophils (0.0 - 0.7 /CUMM) 0.1 Absolute Basophils (0.0 - 0.2 /CUMM) 0 Miscellaneous Phlebotomy Draw Site RAC Toxicology Urine Opiates Screen (>2000 NG/ML) < 100 Methadone Screen (>300 NG/ML) > 735 H Barbiturate Screen (>200 NG/ML) < 60 Ur Phencyclidine Scrn (>25 NG/ML) < 6.00 Amphetamines Screen (>1000 NG/ML) < 100 U Benzodiazepines Scrn (>200 NG/ML) < 85 Urine Cocaine Screen (>300 NG/ML) < 50 Urine Cannabis Screen (>50 NG/ML) < 5.00 Serum Alcohol (<10 MG/DL) < 10.0 Acetone Level (NEGATIVE) POSITIVE AT 1:32 DIL Urines Ur Random Creatinine (mg/dL) 35.3 Ur Random Sodium (30 - 90 mmol/L) 57 Ur Random Potassium (mmol/L) 18.9 Fraction Sodium Excret (<1% %) 2.0 H Microbiology Date/Time Procedure - Status Source Growth 03/08 615 Urine Culture - RES URINE ROUT 03/08 06 Urine Culture - CAN URINE ROUT Cancelled: Cancelled via OE: DUPLICATE 03/08 526 Cryptosporidium Antigen - COLB STOOL 03/08 526 Giardia Antigen (AINSLEY) - COLB STOOL 03/08 526 Clostridium difficile Toxin A & B - COLB STOOL 03/08 526 Stool Culture - COLB STOOL 03/08 417 Blood Culture - CAN BLOOD Cancelled: SPECIMEN NOT RECEIVED, CANCELLED PER MICHEL ARIAS 03/08 417 Blood Culture - CAN BLOOD Cancelled: SPECIMEN NOT RECEIVED, CANCELLED PER MICHEL ARIAS 03/08 034 Surveillance Culture - COMP UPPER RESP 03/08 345 Surveillance Culture - COMP GI 03/08 001 Urine Culture - RES URINE ROUT Impression/Plan Impression/Plan Impression/Plan: General Appearance Alert, Cooperative, mild Distress Skin No Rashes, No Breakdown, No Significant Lesion Skin Temp/Moisture Exam: Warm/Dry HEENT Atraumatic, PERRLA, EOMI Neck Supple, No JVD, No thryomegaly Cardiovascular Regular Rate, Normal S1, Normal S2, No Murmurs, Gallops, Rubs Lungs Clear to Auscultation, Normal Air Movement Abdomen Soft, mild Tenderness, No Hepatospenomegaly, No Masses Neurological Normal Speech, Normal Tone Extremities No Clubbing, No Cyanosis, No Edema 47-year-old male with past medical history of anxiety, depression, chronic pain, and type 1 diabetes presents with 1 day of nausea, vomiting hyperglycemia, admitted to [facility] for DKA, electrolyte abnormalities, and mild heme positive emesis * DKA / sig with type 1 DM now better with AG has closed * Diffuse abd pain appears to be so far from DKA * Mild heme positive coffee ground type emesis stable rule out pud/ MW tear * MELO and Electrolyte abnormality improved * Anxiety/depression/chronic pain/ recent etoh and pain med use rule out withdrawal and watch for DT * Hepatic stetosis / elevated alk phos/ preserved synthethic liver function REC Cont Insulin sub cut now Replace electrolytes if needed PRN morphine and ativan to combat pain and withdrawal Cont aniemetic, check qtc Amlodapine for bp and if heart rate is ok can use low dose betablockers aswel Start losartan 25 mg daily EGD today IF stable to the floor later (if qtc is prolonged to tele if not to the floor)
--- NOTE | 2018-03-09 13:05 | PN- Diabetes ---
Assessment/Plan Diabetes Assessment: 47 y/o male who has had diabetes type 1 which was diagnosed 5 years ago ( as per family, his diabetes hasn't been controlled), was put on t slim insulin pump 2 years ago, presented with nausea, vominting and confusion. His glucose level was found to be 853, bicarb , 5, AG 35, ph 6.95. He was admitted to ICU for DKA. His insulin pump settings: Basal rate: midnight 0.95 units per hour; 3 am 1 units per hour; 8 am 1 units per hour; 10 am 1.1 units per hour; 9 pm 0.95 units per hour IC ratio 15 grams insulin sensitivity 50 mg/dl Target of glucose 125 mg/dl active insulin time 4 hours. He was treated with IVF and insulin drip. DKA resolved. He was put on Levemir 10 units twice a day, Novolog coverage every 4 hours and D51/2 NS with 20 meq of KCL at 125 ml/hour. His FSGs were 1`81.264, 246 and 230. Currently he is kept NPO for endoscopy. Plan: 1. increase Levemir to 12 units twice a day; 2. continue the current IVF; 3, adjust Novolog coverage every 4 hours; detail see the [facility] DM orders; 4. monitor FSGs and electrolytes will follow. Inpatient Diabetes Orders Every 4 Hours: Bolus Insulin: Novolog < 80 mg/dl: no coverage 80-100 mg/dl: no coverage 101-120 mg/dl: no coverage 121-150 mg/dl: 4 units 151-200 mg/dl: 6 units 201-250 mg/dl: 8 units 251-300 mg/dl: 10 units 301-350 mg/dl: 12 units 351-400 mg/dl: 14 units > 400 mg/dl: 16 units Subjective Subjective: He still appears slightly lethargic. Objective Last 24 Hrs of Vital Signs/I&O Vital Signs Date Time Temp Pulse Resp B/P B/P Pulse O2 O2 Flow FiO2 Mean Ox Delivery Rate 03/09 1200 96.5 61 20 156/98 03/09 1200 98 Room Air 03/09 1100 64 20 184/100 03/09 1000 60 20 168/102 03/09 0800 97.0 61 18 170/100 03/09 0800 97.0 61 18 170/100 97 Room Air 08/20 0800 97 Room Air 03/09 0600 97.8 66 20 169/95 03/09 0400 97.8 64 24 158/82 03/09 0200 99.0 66 22 167/93 03/09 0000 99.0 66 20 140/88 03/09 0000 99.0 66 20 140/88 97 Room Air Room Air 03/08 2200 98.5 66 30 143/92 03/08 2000 98.5 70 26 148/82 Intake & Output 03/09 1600 03/09 0800 03/09 0000 Intake Total 992 1059 Output Total 700 620 Balance 292 439 Intake, IV 992 1059 Intake, Oral 0 0 Number 0 0 Bowel Movements Output, Urine 700 620 Findings Pertinent Lab/Pino Results: Laboratory Tests 03/09 03/08 03/08 0425 1855 1305 Blood Gas Bicarbonate Actual (22 - 26 MEQ/L) 21 L Mixed VBG pH (7.31 - 7.41 PH) 7.38 Mixed VBG pCO2 (41 - 51 TORR) 36 L Mixed VBG O2 Saturation (35 - 45 TORR) 31 L P-50 (Temp Corrected) N Carboxyhemoglobin (1.5 - 5.0 %) 0.8 L O2 Concentration % .21 Temperature (97.0 - 100.0 FARH) 97.7 O2 Delivery Method RA Chemistry Sodium (137 - 145 mmol/L) 138 139 Potassium (3.5 - 5.1 mmol/L) 4.2 4.9 Chloride (98 - 107 mmol/L) 110 H 110 H Carbon Dioxide (22 - 30 mmol/L) 21 L 22 Anion Gap (5 - 16) 7 7 BUN (9 - 20 mg/dL) 10 16 Creatinine (0.7 - 1.2 mg/dL) 0.7 0.8 Estimated GFR (>60 ml/min) > 60 > 60 Glucose (65 - 99 mg/dL) 208 H 177 H Calcium (8.4 - 10.2 mg/dL) 8.1 L 7.7 L Phosphorus (2.5 - 4.5 mg/dL) 2.0 L 2.7 Magnesium (1.6 - 2.3 mg/dL) 1.9 1.8 Total Bilirubin (0.2 - 1.3 mg/dL) 0.4 0.2 Direct Bilirubin (< 0.4 mg/dL) 0.3 AST (17 - 59 U/L) 24 25 ALT (21 - 72 U/L) 51 57 Alkaline Phosphatase (< 127 U/L) 194 H Total Protein (6.3 - 8.2 g/dL) 5.8 L Albumin (3.5 - 5.0 g/dL) 3.1 L 3.1 L Hematology CBC w Diff NO MAN DIFF REQ WBC (4.8 - 10.8 /CUMM) 7.5 RBC (4.70 - 6.10 /CUMM) 3.72 L Hgb (14.0 - 18.0 G/DL) 11.4 L Hct (42 - 52 %) 33.0 L MCV (80.0 - 94.0 FL) 88.6 MCH (27.0 - 31.0 PG) 30.5 MCHC (33.0 - 37.0 G/DL) 34.4 RDW (11.5 - 14.5 %) 14.2 Plt Count (130 - 400 /CUMM) 231 MPV (7.4 - 10.4 FL) 8.0 Gran % (42.2 - 75.2 %) 74.2 Lymphocytes % (20.5 - 51.1 %) 18.2 L Monocytes % (1.7 - 9.3 %) 7.2 Eosinophils % (0 - 5 %) 0.1 Basophils % (0.0 - 2.0 %) 0.3 Absolute Granulocytes (1.4 - 6.5 /CUMM) 5.5 Absolute Lymphocytes (1.2 - 3.4 /CUMM) 1.4 Absolute Monocytes (0.10 - 0.60 /CUMM) 0.5 Absolute Eosinophils (0.0 - 0.7 /CUMM) 0 Absolute Basophils (0.0 - 0.2 /CUMM) 0 Immunology MARCO Titer ND Anti-Nuclear Antibody (NEG,1:40) NEG 1:40 IFA ASSAY Miscellaneous Ref Lab Test Result Pending Phlebotomy Draw Site LEFT
--- NOTE | 2018-03-09 15:01 | Transfer of Care Summary ---
Hospital Course Course Hospital Course: Reason for ICU admission: Patient was admitted to ICU for DKA with positive anion gap and coffee-ground emesis. History of presenting illness: 47 YO M with PMH of anxiety, depression, chronic pain, and type 1 diabetes presents with complaints of nausea, vomiting, diarrhea, and hyperglycemia for 1 day. Patient was in his normal state of health until Amari evening, when he endorses having a significant amount of German food, after which he was nauseous and vomiting. In the ED, patient was found to have significantly elevated glucose (>800), elevated K, UA positive for ketones, lactic acid of 6.1 , and VBG, PH of 6.95. He was admitted to the ICU for management of DKA. Toxic screen is positive for methadone. INR 1.03. LFTs normal except ALP. Urinalysis did show ketones with trace proteins, > 1000 glucose, hyaline casts. Lactic acid 5.7. Interval events in ICU: Patient was admitted in ICU for DKA and coffee-ground emesis. He was started on IV fluids with insulin drip. He was also given bicarbonate drip. His anion gap closed and bicarbonate drip was discontinued. Patient's potassium was also repleted continuously keeping his potassium level between 44.5. Later on his blood sugar level was under control in 200s and his insulin drip was discontinued. Patient was started on subcutaneous NovoLog insulin according to sliding scale every 4 hourly. He was also started on insulin Levemir 12 units subcutaneous twice a day. While in ICU patient was having withdrawal symptoms from alcohol as he is drinking everyday. He was kept on CIWA protocol and given Ativan 2 mg every 6 hourly. For his coffee-ground emesis GI recommended upper GI endoscopy to look for any peptic ulcer or Susu-Murphy tear due to nausea and vomiting. As he was withdrawling from alcohol endoscope was delayed till tomorrow. Mechanical ventilation: Never been intubated NPPV: Never been on BiPAP/CPAP Antibiotic plan: Remained afebrile and never started on any antibiotics. Catheters/lines: Continuing Delvalle's catheter to monitor his urine output. Things to follow-up on floor: -Patient is nothing by mouth and going for endoscopy tomorrow. -Follow-up endo recommendations to manage diabetes. -Please keep monitoring his blood pressure, started on losartan and low-dose amlodipine. -Please confirm his home meds -Watch for QTC as patient is on antiemetics that can prolong his QTC. Nutrition: Nothing by mouth overnight for endoscopy tomorrow. DVT prophylaxis: Mechanical and subcutaneous heparin CODE STATUS: Full code Assessment/Plan: DKA:(IMPROVING) -Due to poorly controlled type 1 DM. -Continue IV fluids with potassium supplement at the rate of 125 mL per hour. -Continue insulin NovoLog according to sliding scale subcutaneous. -Continues Levemir 12 units subcutaneous twice a day -Anion gap today is 7 -His blood sugar level this morning was 230 -His potassium was 4.2 today -Follow-up endocrinology recommendations. Coffee-ground emesis: -Possibly due to peptic ulcer or Susu-Murphy tear. -Endoscopy was not done today considering patient has alcohol withdrawal symptoms. -Continue IV Protonix -Avoid NSAIDs -Follow-up his H&H -Continue IV antiemetic as needed and we will monitor his QTC. This morning his QTC was 440 -Nothing by mouth midnight for endoscopy tomorrow. Chronic pain: -Continue methadone 35 mg daily. -Continue IV Tylenol -Continue when necessary morphine. -Follow-up pain pathway. Alcohol withdrawal: -Patient reported that he is drinking alcohol every day. -Continue CIWA protocol, ativan 1 mg when necessary -Continue Ativan 2 mg every 6 hours -Continue thiamine supplementation -His CIWA score this morning was 5 Elevated blood pressure: -Could be due to alcohol withdrawal or undiagnosed hypertension. -We will start him on losartan 25 mg and amlodipine 2.5 mg -A patient remained tachycardic we will give him beta sommer low dose. -We'll monitor patient's blood pressure. MELO:(Resolved) -Possibly prerenal and in the setting of using losartan -On admission his creatinine was 1.6 and BUN was 29 -Today his creatinine is 0.7 and BUN is 10 -Avoid nephrotoxic medications Elevated alkaline phosphatase: -Possibly hepatic in origin but no signs of biliary pathology other than hepatic steatosis. -His ALT/AST and bilirubin levels are within normal limits. -We will keep monitoring it. History of anxiety and depression: -Holding sertraline and buspirone Diet: -Clear liquids DVT prophylaxis: Mechanical and subcutaneous heparin CODE STATUS: Full code
--- NOTE | 2018-03-09 19:01 | PN- Gastroenterology ---
Assessment/Plan GI Assessment/Recommendations: ASSESSMENT: 1. Coffee-ground emesis. Patient has had no further hematemesis. I discussed the risks and benefits of EGD with the patient's sister. If he remained stable overnight will proceed with EGD in morning. Patient is to remain n.p.o.. 2. Nausea and vomiting. As above likely related to DKA. There is been no further nausea and vomiting. 3. Diabetic Ketoacidosis 4. Anemia --question due to acute blood loss versus hemodilution in the setting of treatment of DKA. 5. Chronic use of NSAIDs 6. Alcohol abuse. There are no signs of synthetic dysfunction. Patient is on DVT prophylaxis 7. Diabetes mellitus poorly controlled. 8. Elevated alkaline phosphatase RECOMMENDATIONS: 1. Patient to remain n.p.o. If DKA and alcohol withdrawal reliably under control will perform EGD tomorrow. His sister will provide consent for this patient 2. EGD in a.m. if patient remains stable over night 3. If patient has large-volume hematemesis or large-volume melena or any change in clinical condition related to GI blood loss called Dr. Cho immediately. Subjective Subjective: Patient has had no further nausea vomiting or hematemesis. He has been treated for acute alcohol withdrawal and is awake but not quite completely alert. His sister who is his healthcare proxy is at the bedside. He complains of epigastric pain. Her name is Lilia rosenbaum. She can be reached at . He has had no melena nor bright red blood per rectum. Objective Vital Signs and I&Os Vital Signs Date Time Temp Pulse Resp B/P B/P Pulse O2 O2 Flow FiO2 Mean Ox Delivery Rate 03/09 1800 59 20 162/84 08/20 1600 59 20 152/84 08/20 1600 97.5 59 20 152/84 98 Room Air / 1600 98 Room Air 03/09 1548 64 156/84 08/20 1500 64 24 194/90 08/20 1400 64 24 184/90 / 1200 96.5 61 20 156/98 08/20 1200 98 Room Air /20 1100 64 20 184/100 08/20 1000 60 20 168/102 08/20 0800 97.0 61 18 170/100 08/20 0800 97.0 61 18 170/100 97 Room Air 08/ 0800 97 Room Air 08/ 0600 97.8 66 20 169/95 03/09 0400 97.8 64 24 158/82 03/09 0200 99.0 66 22 167/93 03/09 0000 99.0 66 20 140/88 08 0000 99.0 66 20 140/88 97 Room Air Room Air 03/08 2200 98.5 66 30 143/92 03/08 2000 98.5 70 26 148/82 Intake & Output 03/09 1600 03/09 0400 03/08 1600 03/08 0400 03/07 1600 03/07 0400 Intake Total 2117 1059 3566 4000 Output Total 1350 620 800 300 Balance 813 578 7202 3700 Intake, IV 1996 1059 3566 4000 Intake, Oral 120 0 Number 0 0 Bowel Movements Output, 150 Emesis Output, Urine 1350 620 650 300 Patient 232 lb Weight Weight Bed scale Measurement Method Physical Exam General Appearance: well developed/nourished, awake, lethargic, mild distress Head: normal appearance Respiratory: lungs clear Cardiovascular: regular rate/rhythm, Normal S1 and S2 without Rub, Murmur or Gallop Abdomen: soft, Mild epigastric tenderness without rebound or guarding, Bowel Sounds are Normal and Active Neurologic/Psychiatric: awake, Sedated Skin: intact, normal color Current Medications: Current Medications Sig/Ami Start time Last Medication Dose Route Stop Time Status Admin Amlodipine Besylate 2.5 MG DAILY 03/09 1712 AC PO Heparin Sodium 5,000 UNIT Q8 03/08 1400 AC 03/09 (Porcine) SC 1343 Insulin Aspart 0 Q4 03/09 1000 AC 03/09 SC 1827 Insulin Detemir 12 UNITS BID 03/09 0900 AC 03/09 SC 0951 Insulin Detemir 10 UNITS BID 03/08 1745 DC 03/08 SC 1755 Insulin Human Regular 0 Q4 03/08 1800 DC 03/09 SC 0617 Insulin Human Regular 100 UNIT Q5H 03/08 1300 DC Sodium Chloride 100 ML IV 03/08 1900 Lorazepam 2 MG Q6 03/08 2359 AC 03/09 PO 1826 Lorazepam 0 .STK-MED ONE 03/08 1918 DC .ROUTE Lorazepam 0 Q1P PRN 03/08 1915 AC 03/09 IV 1456 Losartan Potassium 25 MG DAILY 03/09 1312 AC 03/09 PO 1548 Methadone HCl 30 MG DAILY 03/09 1326 AC 03/09 PO 1340 Morphine Sulfate 0 .STK-MED ONE 03/09 08 DC .ROUTE Morphine Sulfate 1 MG ONCE ONE 03/09 0815 DC 03/09 IV 03/09 0816 0825 Ondansetron HCl 4 MG Q6P PRN 03/08 0345 03/09 IV 0208 Pantoprazole Sodium 40 MG BID 03/08 0400 AC 03/09 IV 0825 Potassium Chloride 40 MEQ Q8H 03/08 1530 AC 03/09 Dextrose/Sodium 1,000 ML IV 1112 Chloride Sodium Bicarbonate 150 MEQ 150 MLS/HR 03/09 09 DC 03/08 Dextrose/Water 1,000 ML IV 03/09 1539 0625 Thiamine HCl 50 MG DAILY 03/09 09 03/09 PO 1449 Results Pertinent Lab Results: Laboratory Tests 03/09 03/08 03/08 0425 1855 1305 Blood Gas Bicarbonate Actual (22 - 26 MEQ/L) 21 L Mixed VBG pH (7.31 - 7.41 PH) 7.38 Mixed VBG pCO2 (41 - 51 TORR) 36 L Mixed VBG O2 Saturation (35 - 45 TORR) 31 L P-50 (Temp Corrected) N Carboxyhemoglobin (1.5 - 5.0 %) 0.8 L O2 Concentration % .21 Temperature (97.0 - 100.0 FARH) 97.7 O2 Delivery Method RA Chemistry Sodium (137 - 145 mmol/L) 138 139 Potassium (3.5 - 5.1 mmol/L) 4.2 4.9 Chloride (98 - 107 mmol/L) 110 H 110 H Carbon Dioxide (22 - 30 mmol/L) 21 L 22 Anion Gap (5 - 16) 7 7 BUN (9 - 20 mg/dL) 10 16 Creatinine (0.7 - 1.2 mg/dL) 0.7 0.8 Estimated GFR (>60 ml/min) > 60 > 60 Glucose (65 - 99 mg/dL) 208 H 177 H Calcium (8.4 - 10.2 mg/dL) 8.1 L 7.7 L Phosphorus (2.5 - 4.5 mg/dL) 2.0 L 2.7 Magnesium (1.6 - 2.3 mg/dL) 1.9 1.8 Total Bilirubin (0.2 - 1.3 mg/dL) 0.4 0.2 Direct Bilirubin (< 0.4 mg/dL) 0.3 AST (17 - 59 U/L) 24 25 ALT (21 - 72 U/L) 51 57 Alkaline Phosphatase (< 127 U/L) 194 H Total Protein (6.3 - 8.2 g/dL) 5.8 L Albumin (3.5 - 5.0 g/dL) 3.1 L 3.1 L Hematology CBC w Diff NO MAN DIFF REQ WBC (4.8 - 10.8 /CUMM) 7.5 RBC (4.70 - 6.10 /CUMM) 3.72 L Hgb (14.0 - 18.0 G/DL) 11.4 L Hct (42 - 52 %) 33.0 L MCV (80.0 - 94.0 FL) 88.6 MCH (27.0 - 31.0 PG) 30.5 MCHC (33.0 - 37.0 G/DL) 34.4 RDW (11.5 - 14.5 %) 14.2 Plt Count (130 - 400 /CUMM) 231 MPV (7.4 - 10.4 FL) 8.0 Gran % (42.2 - 75.2 %) 74.2 Lymphocytes % (20.5 - 51.1 %) 18.2 L Monocytes % (1.7 - 9.3 %) 7.2 Eosinophils % (0 - 5 %) 0.1 Basophils % (0.0 - 2.0 %) 0.3 Absolute Granulocytes (1.4 - 6.5 /CUMM) 5.5 Absolute Lymphocytes (1.2 - 3.4 /CUMM) 1.4 Absolute Monocytes (0.10 - 0.60 /CUMM) 0.5 Absolute Eosinophils (0.0 - 0.7 /CUMM) 0 Absolute Basophils (0.0 - 0.2 /CUMM) 0 Immunology MARCO Titer ND Anti-Nuclear Antibody (NEG,1:40) NEG 1:40 IFA ASSAY Miscellaneous Ref Lab Test Result Pending Phlebotomy Draw Site LEFT 03/08 03/08 03/08 1300 1123 0930 Chemistry Sodium (137 - 145 mmol/L) 140 140 Potassium (3.5 - 5.1 mmol/L) 4.0 4.1 Chloride (98 - 107 mmol/L) 111 H 112 H Carbon Dioxide (22 - 30 mmol/L) 20 L 15 L Anion Gap (5 - 16) 9 13 BUN (9 - 20 mg/dL) 19 21 H Creatinine (0.7 - 1.2 mg/dL) 0.8 1.0 Estimated GFR (>60 ml/min) > 60 > 60 Glucose (65 - 99 mg/dL) 122 H 164 H Lactic Acid (0.7 - 2.1 mmol/L) Cancelled 2.1 Calcium (8.4 - 10.2 mg/dL) 7.6 L 7.4 L Phosphorus (2.5 - 4.5 mg/dL) 1.4 L 1.3 L Magnesium (1.6 - 2.3 mg/dL) 1.8 1.7 Total Bilirubin (0.2 - 1.3 mg/dL) 0.2 0.2 AST (17 - 59 U/L) 27 28 ALT (21 - 72 U/L) 51 53 Albumin (3.5 - 5.0 g/dL) 3.2 L 3.1 L Hematology CBC w Diff NO MAN DIFF REQ WBC (4.8 - 10.8 /CUMM) 8.7 RBC (4.70 - 6.10 /CUMM) 3.67 L Hgb (14.0 - 18.0 G/DL) 11.1 L Hct (42 - 52 %) 31.8 L MCV (80.0 - 94.0 FL) 86.7 MCH (27.0 - 31.0 PG) 30.2 MCHC (33.0 - 37.0 G/DL) 34.9 RDW (11.5 - 14.5 %) 13.8 Plt Count (130 - 400 /CUMM) 230 MPV (7.4 - 10.4 FL) 8.5 Gran % (42.2 - 75.2 %) 79.9 H Lymphocytes % (20.5 - 51.1 %) 12.6 L Monocytes % (1.7 - 9.3 %) 7.0 Eosinophils % (0 - 5 %) 0.1 Basophils % (0.0 - 2.0 %) 0.4 Absolute Granulocytes (1.4 - 6.5 /CUMM) 6.9 H Absolute Lymphocytes (1.2 - 3.4 /CUMM) 1.1 L Absolute Monocytes (0.10 - 0.60 /CUMM) 0.6 Absolute Eosinophils (0.0 - 0.7 /CUMM) 0 Absolute Basophils (0.0 - 0.2 /CUMM) 0 03/08 03/08 0840 0652 Blood Gas pH (7.35 - 7.45 PH) 7.32 L pCO2 (35 - 45 TORR) 27 L pO2 (80 - 100 TORR) 83 HCO3 (21 - 28 MEQ/L) 14 L ABG O2 Sat (Measured) (>96.0 %) 96.0 P-50 (Temp Corrected) N Carboxyhemoglobin (1.5 - 5.0 %) 0.2 L O2 Concentration % .21 Temperature (97.0 - 100.0 FARH) 97.7 O2 Delivery Method RA Miscellaneous Phlebotomy Draw Site RIGHT RADIAL Urines Ur Random Creatinine Cancelled Ur Random Sodium Cancelled Ur Random Potassium Cancelled Fraction Sodium Excret Cancelled 03/08 03/08 0510 0229 Chemistry Sodium (137 - 145 mmol/L) 139 Potassium (3.5 - 5.1 mmol/L) 6.0 *H Chloride (98 - 107 mmol/L) 106 Carbon Dioxide (22 - 30 mmol/L) 6 *L Anion Gap (5 - 16) 27 H BUN (9 - 20 mg/dL) 29 H Creatinine (0.7 - 1.2 mg/dL) 1.5 H Estimated GFR (>60 ml/min) 50 L Glucose (65 - 99 mg/dL) 399 H Hemoglobin A1c (4.2 - 5.8 %) 10.0 H Lactic Acid (0.7 - 2.1 mmol/L) 3.7 H 5.7 H Calcium (8.4 - 10.2 mg/dL) 8.1 L Phosphorus (2.5 - 4.5 mg/dL) 6.8 H Magnesium (1.6 - 2.3 mg/dL) 2.4 H Total Bilirubin (0.2 - 1.3 mg/dL) 0.4 AST (17 - 59 U/L) 36 ALT (21 - 72 U/L) 56 Troponin I (<0.11 ng/ml) < 0.01 Albumin (3.5 - 5.0 g/dL) 3.7 Hematology CBC w Diff NO MAN DIFF REQ WBC (4.8 - 10.8 /CUMM) 13.4 H RBC (4.70 - 6.10 /CUMM) 4.02 L Hgb (14.0 - 18.0 G/DL) 12.3 L Hct (42 - 52 %) 35.7 L MCV (80.0 - 94.0 FL) 88.7 MCH (27.0 - 31.0 PG) 30.5 MCHC (33.0 - 37.0 G/DL) 34.4 RDW (11.5 - 14.5 %) 13.6 Plt Count (130 - 400 /CUMM) 270 MPV (7.4 - 10.4 FL) 8.8 Gran % (42.2 - 75.2 %) 81.2 H Lymphocytes % (20.5 - 51.1 %) 15.1 L Monocytes % (1.7 - 9.3 %) 3.2 Eosinophils % (0 - 5 %) 0 Basophils % (0.0 - 2.0 %) 0.5 Absolute Granulocytes (1.4 - 6.5 /CUMM) 10.9 H Absolute Lymphocytes (1.2 - 3.4 /CUMM) 2.0 Absolute Monocytes (0.10 - 0.60 /CUMM) 0.4 Absolute Eosinophils (0.0 - 0.7 /CUMM) 0 Absolute Basophils (0.0 - 0.2 /CUMM) 0.1 03/08 03/08 0229 0015 Chemistry Sodium (137 - 145 mmol/L) 137 Potassium (3.5 - 5.1 mmol/L) 5.7 H Chloride (98 - 107 mmol/L) 97 L Carbon Dioxide (22 - 30 mmol/L) < 5 *L Anion Gap (5 - 16) 35.66851 H BUN (9 - 20 mg/dL) 30 H Creatinine (0.7 - 1.2 mg/dL) 1.6 H Estimated GFR (>60 ml/min) 46 L Glucose (65 - 99 mg/dL) 624 *H Calcium (8.4 - 10.2 mg/dL) 8.5 Phosphorus (2.5 - 4.5 mg/dL) 11.1 H Magnesium (1.6 - 2.3 mg/dL) 2.3 Total Bilirubin (0.2 - 1.3 mg/dL) 0.3 AST (17 - 59 U/L) 40 ALT (21 - 72 U/L) 64 Albumin (3.5 - 5.0 g/dL) 4.0 Amylase (30 - 110 U/L) 76 Hematology CBC w Diff MAN DIFF ORDERED WBC (4.8 - 10.8 /CUMM) 17.4 H RBC (4.70 - 6.10 /CUMM) 4.29 L Hgb (14.0 - 18.0 G/DL) 13.0 L Hct (42 - 52 %) 39.2 L MCV (80.0 - 94.0 FL) 91.3 MCH (27.0 - 31.0 PG) 30.3 MCHC (33.0 - 37.0 G/DL) 33.2 RDW (11.5 - 14.5 %) 13.6 Plt Count (130 - 400 /CUMM) 303 MPV (7.4 - 10.4 FL) 9.3 Segmented Neutrophils (42.2 - 75.2 %) 70 Band Neutrophils (0.0 - 5.0 %) 7 H Lymphocytes (20.5 - 51.1 %) 20 L Monocytes (1.7 - 9.3 %) 3 Platelet Estimate (ADEQUATE) ADEQUATE Normocytic RBCs VERIFIED Normochromic RBCs VERIFIED Urines Urinalysis LIGHT H Urine Color (YEL,AMB,STR) YEL Urine Clarity (CLEAR) CLEAR Urine pH (5.0 - 8.0) 6.0 Ur Specific [place] (1.001 - 1.035) 1.025 Urine Protein (NEG,<30 MG/DL) TRACE H Urine Ketones (NEG) >=80 Urine Nitrite (NEG) NEG Urine Bilirubin (NEG) NEG@ICTO Urine Urobilinogen (0.1 - 1.0 EU/dl) 0.2 Ur Leukocyte Esterase (NEG) NEG Ur Microscopic SEDIMENT EXAMINED Urine WBC (0 - 2 /HPF) 1-3 H Urine Bacteria (NEG/NONE) MOD H Hyaline Casts (0/LPF) RARE H Urine Mucus (FEW,NONE) FEW Urine Hemoglobin (NEG) SMALL H Urine Glucose (N MG/DL) >=1000 H 03/08 03/08 0015 0005 Blood Gas Bicarbonate Actual (22 - 26 MEQ/L) 4.7 L Mixed VBG pH (7.31 - 7.41 PH) 6.95 L Mixed VBG pCO2 (41 - 51 TORR) 22 L Mixed VBG O2 Saturation (35 - 45 TORR) 63 H P-50 (Temp Corrected) N Carboxyhemoglobin (1.5 - 5.0 %) 0.8 L O2 Concentration % RA Temperature (97.0 - 100.0 FARH) 98.6 Chemistry Sodium (137 - 145 mmol/L) 127 L Potassium (3.5 - 5.1 mmol/L) 6.7 *H Chloride (98 - 107 mmol/L) 87 L Carbon Dioxide (22 - 30 mmol/L) < 5 *L Anion Gap (5 - 16) 35 H BUN (9 - 20 mg/dL) 29 H Creatinine (0.7 - 1.2 mg/dL) 1.6 H Estimated GFR (>60 ml/min) 46 L BUN/Creatinine Ratio (7 - 25 %) 18.1 Glucose (65 - 99 mg/dL) 853 *H Lactic Acid (0.7 - 2.1 mmol/L) 6.1 H Calcium (8.4 - 10.2 mg/dL) 8.6 Phosphorus (2.5 - 4.5 mg/dL) 12.4 H Magnesium (1.6 - 2.3 mg/dL) 2.4 H Total Bilirubin (0.2 - 1.3 mg/dL) 0.5 AST (17 - 59 U/L) 42 ALT (21 - 72 U/L) 69 Alkaline Phosphatase (< 127 U/L) 497 H Troponin I (<0.11 ng/ml) < 0.01 Total Protein (6.3 - 8.2 g/dL) 6.9 Albumin (3.5 - 5.0 g/dL) 4.3 Globulin (1.9 - 4.2 gm/dL) 2.6 Albumin/Globulin Ratio (1.1 - 2.2 %) 1.7 Lipase (23 - 300 U/L) 27 Coagulation PT (9.4 - 12.5 SEC) 11.2 INR (0.90 - 1.17) 1.03 APTT (25 - 37 SEC) 29 Hematology CBC w Diff NO MAN DIFF REQ WBC (4.8 - 10.8 /CUMM) 15.7 H RBC (4.70 - 6.10 /CUMM) 4.34 L Hgb (14.0 - 18.0 G/DL) 13.3 L Hct (42 - 52 %) 40.1 L MCV (80.0 - 94.0 FL) 92.5 MCH (27.0 - 31.0 PG) 30.7 MCHC (33.0 - 37.0 G/DL) 33.2 RDW (11.5 - 14.5 %) 14.0 Plt Count (130 - 400 /CUMM) 353 MPV (7.4 - 10.4 FL) 9.0 Gran % (42.2 - 75.2 %) 75.3 H Lymphocytes % (20.5 - 51.1 %) 19.9 L Monocytes % (1.7 - 9.3 %) 4.1 Eosinophils % (0 - 5 %) 0.5 Basophils % (0.0 - 2.0 %) 0.2 Absolute Granulocytes (1.4 - 6.5 /CUMM) 11.8 H Absolute Lymphocytes (1.2 - 3.4 /CUMM) 3.1 Absolute Monocytes (0.10 - 0.60 /CUMM) 0.7 H Absolute Eosinophils (0.0 - 0.7 /CUMM) 0.1 Absolute Basophils (0.0 - 0.2 /CUMM) 0 Miscellaneous Phlebotomy Draw Site RAC Toxicology Urine Opiates Screen (>2000 NG/ML) < 100 Methadone Screen (>300 NG/ML) > 735 H Barbiturate Screen (>200 NG/ML) < 60 Ur Phencyclidine Scrn (>25 NG/ML) < 6.00 Amphetamines Screen (>1000 NG/ML) < 100 U Benzodiazepines Scrn (>200 NG/ML) < 85 Urine Cocaine Screen (>300 NG/ML) < 50 Urine Cannabis Screen (>50 NG/ML) < 5.00 Serum Alcohol (<10 MG/DL) < 10.0 Acetone Level (NEGATIVE) POSITIVE AT 1:32 DIL Urines Ur Random Creatinine (mg/dL) 35.3 Ur Random Sodium (30 - 90 mmol/L) 57 Ur Random Potassium (mmol/L) 18.9 Fraction Sodium Excret (<1% %) 2.0 H
[2018-03-10] VITALS (12 sets, daily range): BP systolic 126–164; BP diastolic 80–100
--- NOTE | 2018-03-10 07:15 | PN- Housestaff ---
TachoStarr 03/10/18 0715: Subjective Follow-up For: 1.DKA 2.Coffee gorund emesis Subjective: Patient was seen and examined at bedside. He was in a lot of distress, tossing and turning in the bed with pain. He reports epigastric pain, 7 on 10 going to the back, relieved after meals. He reports one episode of vomiting overnight which was "mostly bilious". He complains of severe back pain and leg pain. When I talked to him he was alert, oriented to time, place (mentioned he was at [facility], second floor), and person. Denies fever, chills, nausea, palpitations, headache. Review of Systems Constitutional: Reports: see HPI. Objective Last 24 Hrs of Vital Signs/I&O Vital Signs Date Time Temp Pulse Resp B/P B/P Pulse O2 O2 Flow FiO2 Mean Ox Delivery Rate 03/10 1016 98.0 75 20 164/100 95 Room Air 03/10 0816 64 148/92 03/10 0816 64 148/92 03/10 0800 98.4 64 20 148/92 03/10 0638 98.4 64 20 148/92 93 Room Air 03/10 0201 98.3 60 18 148/80 97 Room Air 03/10 0015 64 133/88 03/10 0000 98.0 64 18 133/88 03/09 2319 64 170/90 03/09 2200 98.0 64 18 172/108 03/09 2200 97.9 65 18 172/108 97 Room Air 03/09 2015 97.9 65 18 182/108 97 Room Air 03/09 2000 98.0 60 20 170/102 03/09 1949 170/102 03/09 1800 59 20 162/84 03/09 1600 59 20 152/84 03/09 1600 97.5 59 20 152/84 98 Room Air 03/09 1600 98 Room Air 03/09 1548 64 156/84 03/09 1500 64 24 194/90 03/09 1400 64 24 184/90 03/09 1200 96.5 61 20 156/98 03/09 1200 98 Room Air Intake & Output 03/10 1600 03/10 0800 03/10 0000 Intake Total 1050 250 Output Total 2925 600 Balance -1875 -350 Intake, IV 1000 250 Intake, Oral 50 Output, Urine 2925 600 Physical Exam General Appearance: Alert, Oriented X3, Cooperative, Moderate Distress Skin: No Rashes Skin Temp/Moisture Exam: Warm/Dry Neck: Supple Cardiovascular: Regular Rate, Normal S1, Normal S2 Lungs: Clear to Auscultation Abdomen: Normal Bowel Sounds, guarding present, diffuse tenderness, more localised over the epigastric region Neurological: mildly tremulous Extremities: No Edema, Normal Pulses Assessment/Plan Assessment: 47 YO M with PMH of anxiety, depression, chronic pain, and type 1 diabetes presents with complaints of nausea, vomiting, diarrhea, and hyperglycemia for 1 day. Patient was in his normal state of health until Friday evening, when he endorses having a significant amount of [place] food, after which he was nauseous and vomiting. In the ED, patient was found to have significantly elevated glucose (>800), elevated K, UA positive for ketones, lactic acid of 6.1 , and VBG, PH of 6.95. He was initially admitted to the ICU for management of DKA. LFTs normal except ALP. Urinalysis did show ketones with trace proteins, > 1000 glucose, hyaline casts. Transferred from the ICU to the Gen Med Service last night. DKA:(IMPROVING) -Due to poorly controlled type 1 DM. -Continue IV fluids with potassium supplement at the rate of 125 mL per hour. -Continue insulin NovoLog according to sliding scale subcutaneous. -Continues Levemir 12 units subcutaneous twice a day -Anion gap today is 7 -His blood sugar level this morning was 140 -His potassium was 3.8 today -Follow-up endocrinology recommendations. Coffee-ground emesis: -Possibly due to peptic ulcer or Susu-Murphy tear. -Patient due for EGD in the afternoon -Continue IV Protonix -Avoid NSAIDs -Follow-up his H&H 11.8 today -Continue IV antiemetic as needed and we will monitor his QTC. This morning his QTC was 440 -Nothing by mouth midnight for endoscopy tomorrow. We will keep the patient on IV fluids over midnight but same insulin NovoLog sliding scale. Chronic pain: -Continue methadone 35 mg daily. -Continue IV Tylenol -Continue when necessary morphine. -Follow-up pain pathway. Alcohol withdrawal: -Patient reported that he is drinking alcohol every day. -Continue CIWA protocol, ativan 1 mg when necessary -Continue Ativan 2 mg every 6 hours -Continue thiamine supplementation -His CIWA score this morning was 8 in the morning Elevated blood pressure: -Could be due to alcohol withdrawal or undiagnosed hypertension. - losartan 25 mg and amlodipine 2.5 mg -A patient remained tachycardic we will give him beta sommer low dose. -Clonidine 0.1 mg for SBP> 160 and DBP>90 -We'll monitor patient's blood pressure. MELO:(Resolved) -Possibly prerenal and in the setting of using losartan -On admission his creatinine was 1.6 and BUN was 29 -Today his creatinine is 0.6 and BUN is 4 -Avoid nephrotoxic medications Elevated alkaline phosphatase: -Possibly hepatic in origin but no signs of biliary pathology other than hepatic steatosis. -His ALT/AST and bilirubin levels are within normal limits. -We will keep monitoring it. History of anxiety and depression: -Holding sertraline and buspirone Diet: -Clear liquids DVT prophylaxis: Mechanical and subcutaneous heparin CODE STATUS: Full code Problem List: 1. GI bleed 2. DKA (diabetic ketoacidoses) 3. MELO (acute kidney injury) 4. Alcohol withdrawal Pain Ratin Pain Location: abdomen Pain Goal: Pain 4 or less Pain Plan: pathway, avoid NSAIDS Tomorrow's Labs & Rationales: cbc and bep IshVicky barragan 03/10/18 1155: Attending MD Review Statement Attending Statement Attending MD Statement: examined this patient, discuss w/resident/PA/GOLF BALL INSPECTOR, agreed w/resident/PA/GOLF BALL INSPECTOR, discussed with family, reviewed EMR data (avail), discussed with nursing, discussed with case mgmt, reviewed images, amended to note
[2018-03-10 08:38] LABS: ABSOLUTE BASOPHIL COUNT 0.1 /CUMM (0.0-0.2); ABSOLUTE EOSINOPHIL COUNT 0 /CUMM (0.0-0.7); ABSOLUTE GRANULOCYTE CT 4.4 /CUMM (1.4-6.5); ABSOLUTE LYMPH COUNT 1.3 /CUMM (1.2-3.4); ABSOLUTE MONOCYTE COUNT 0.3 /CUMM (0.10-0.60); BASOPHIL % 0.9 % (0.0-2.0); EOSINOPHIL % 0.3 % (0-5); GRANULOCYTE % 72.1 % (42.2-75.2); HEMATOCRIT 34.9 % (42-52); MEAN CORPUSCULAR HGB 29.8 PG (27.0-31.0); MEAN CORPUSCULAR HGB CONC 33.7 G/DL (33.0-37.0); MEAN CORPUSCULAR VOLUME 88.4 FL (80.0-94.0); MEAN PLATELET VOLUME 8.8 FL (7.4-10.4); PLATELET COUNT 207 /CUMM (130-400); RBC DISTRIBUTION WIDTH 14.5 % (11.5-14.5); RED BLOOD CELL CT 3.95 /CUMM (4.70-6.10)
--- NOTE | 2018-03-10 10:04 | PN- Diabetes ---
Assessment/Plan Diabetes Assessment: 47 y/o male who has had diabetes type 1 which was diagnosed 5 years ago ( as per family, his diabetes hasn't been controlled), was put on t slim insulin pump 2 years ago, presented with nausea, vominting and confusion. His glucose level was found to be 853, bicarb , 5, AG 35, ph 6.95. He was admitted to ICU for DKA. His insulin pump settings: Basal rate: midnight 0.95 units per hour; 3 am 1 units per hour; 8 am 1 units per hour; 10 am 1.1 units per hour; 9 pm 0.95 units per hour IC ratio 15 grams insulin sensitivity 50 mg/dl Target of glucose 125 mg/dl active insulin time 4 hours. His DKA resolved. He was put on Levemir 12 units twice a day, Novolog coverage every 4 hours and D51/2 NS with 20 meq of KCL at 125 ml/hour. His FSGs were 144, 130, 111 and 128. Currently he is kept NPO for endoscopy. IVF was changed to D5 1/2 NS at 75 ml/ hours, NISS every 4 hours was discontinued. He will be on RISS every 6 hours. Plan: 1. continue the current insulin regimen for now; 2. monitor FSGs; 3. after the endoscopy is done and when he is ready to eat, please let me know and then his insulin regimen will be adjusted accordingly. will follow. Subjective Subjective: He still has abdominal pain. Objective Last 24 Hrs of Vital Signs/I&O Vital Signs Date Time Temp Pulse Resp B/P B/P Pulse O2 O2 Flow FiO2 Mean Ox Delivery Rate 03/10 0816 64 148/92 03/10 0816 64 148/92 03/10 0800 98.4 64 20 148/92 03/10 0638 98.4 64 20 148/92 93 Room Air 03/10 0201 98.3 60 18 148/80 97 Room Air 03/10 0015 64 133/88 03/10 0000 98.0 64 18 133/88 03/09 2319 64 170/90 03/09 2200 98.0 64 18 172/108 03/09 2200 97.9 65 18 172/108 97 Room Air 03/09 2015 97.9 65 18 182/108 97 Room Air 03/09 2000 98.0 60 20 170/102 03/09 1949 170/102 03/09 1800 59 20 162/84 03/09 1600 59 20 152/84 03/09 1600 97.5 59 20 152/84 98 Room Air 03/09 1600 98 Room Air 03/09 1548 64 156/84 03/09 1500 64 24 194/90 03/09 1400 64 24 184/90 03/09 1200 96.5 61 20 156/98 03/09 1200 98 Room Air 03/09 1100 64 20 184/100 Intake & Output 03/10 1600 03/10 0800 03/10 0000 Intake Total 1050 250 Output Total 2925 600 Balance -1875 -350 Intake, IV 1000 250 Intake, Oral 50 Output, Urine 2925 600 Findings Pertinent Lab/Pino Results: Laboratory Tests 03/10 0725 Chemistry Sodium (137 - 145 mmol/L) 134 L Potassium (3.5 - 5.1 mmol/L) 3.8 Chloride (98 - 107 mmol/L) 100 Carbon Dioxide (22 - 30 mmol/L) 27 Anion Gap (5 - 16) 7 BUN (9 - 20 mg/dL) 4 L Creatinine (0.7 - 1.2 mg/dL) 0.6 L Estimated GFR (>60 ml/min) > 60 Glucose (65 - 99 mg/dL) 140 H Calcium (8.4 - 10.2 mg/dL) 8.5 Phosphorus (2.5 - 4.5 mg/dL) 2.8 Magnesium (1.6 - 2.3 mg/dL) 1.6 Total Bilirubin (0.2 - 1.3 mg/dL) 0.6 AST (17 - 59 U/L) 70 H ALT (21 - 72 U/L) 55 Albumin (3.5 - 5.0 g/dL) 3.2 L Hematology CBC w Diff NO MAN DIFF REQ WBC (4.8 - 10.8 /CUMM) 6.0 RBC (4.70 - 6.10 /CUMM) 3.95 L Hgb (14.0 - 18.0 G/DL) 11.8 L Hct (42 - 52 %) 34.9 L MCV (80.0 - 94.0 FL) 88.4 MCH (27.0 - 31.0 PG) 29.8 MCHC (33.0 - 37.0 G/DL) 33.7 RDW (11.5 - 14.5 %) 14.5 Plt Count (130 - 400 /CUMM) 207 MPV (7.4 - 10.4 FL) 8.8 Gran % (42.2 - 75.2 %) 72.1 Lymphocytes % (20.5 - 51.1 %) 22.1 Monocytes % (1.7 - 9.3 %) 4.6 Eosinophils % (0 - 5 %) 0.3 Basophils % (0.0 - 2.0 %) 0.9 Absolute Granulocytes (1.4 - 6.5 /CUMM) 4.4 Absolute Lymphocytes (1.2 - 3.4 /CUMM) 1.3 Absolute Monocytes (0.10 - 0.60 /CUMM) 0.3 Absolute Eosinophils (0.0 - 0.7 /CUMM) 0 Absolute Basophils (0.0 - 0.2 /CUMM) 0.1
--- NOTE | 2018-03-10 15:48 | Proc Note Endoscopy ---
Endoscopy Procedure Medical History: unchanged Mental Status: alert/oriented Heart/Lung Eval Prior to Sedation: within normal limits Candidate for Sedation? Yes Procedure Date: 03/10/18 Procedure Type: EGD w/biopsy Funeral Attendant: MD Cho Deborah E. ASA Classification: III Indications: 1. Hematemesis 2. Anemia Instrument: diagnostic gastroscope Meds Received: MAC Patient's Tolerance: good Complications: none Extent Reached: second part of duodenum Procedure: Note: Informed consent was obtained prior to procedure. Risks and benefits of procedure were discussed with patient. Potential complications discussed included perforation, bleeding, abdominal pain, and adverse reaction to medications. It was explained that iany or all of these complications could result in the need for extended hospitalization, emergency surgery, transfusion of packed red blood cells (with the risk of HIV or hepatitis virus), intubation with mechanical ventilation, and possible need for antibiotics. It was further explained that an existing tumor polyp or mucosal abnormality might not be identified at the time of the procedure thus resulting in a missed opportunity for early diagnosis and treatment of a gastrointestinal malignancy or disease with possible interval development of a gastrointestinal cancer or other disease with possible worsening of clinical condition in the interval between endoscopies. It was also discussed that complications are not limited to those listed above. Possible alternatives to endoscopic treatment or evaluation were discussed. All questions were answered. Continuous EKG and blood pressure monitors were attached. Supplemental oxygen was provided with O2 Sat monitoring. Patient was placed in the left lateral decubitus position. A surgical timeout was performed. All persons in the room were identified. All concerns were expressed and answered. A bite block was placed in the mouth and sedation was administered by anesthesia and titrated to comfort prior to starting the procedure. The Olympus upper endoscope was advanced under direct vision to the level of the third portion of the duodenum. Esophagus: The esophagus had a normal mucosal vascular pattern throughout its entirety. The GE junction was identified and was normal. The Z line was located at 38 cm from the incisors. There is a small sliding-type hiatal hernia. There was evidence of a healed Susu-Murphy tear with a linear erosion with white-based exudate spanning the GE junction. Stomach: The stomach had a normal mucosal and vascular pattern throughout its entirety. Retroflexed view of the cardiofundic region revealed linear erythema likely related to nausea and vomiting. There were normal rugae and normal distensibility. The pylorus was patent and easily intubated. Biopsies were obtained from the antrum and angularis to rule out H. Pylori. Biopsies were also obtained from the gastric body and lesser curvature to rule out atrophic gastritis. Duodenum: The duodenum was fully examined from bulb down to the third portion. There was a normal mucosal vascular pattern throughout. With the endoscope in the forward-viewing position, it was slowly withdrawn and all areas were re-inspected and findings are as described previously. Patient tolerated the procedure well. EBL: minimal Specimens Removed: 1. antrum and angularis to rule out H. Pylori. 2. gastric body and lesser curvature to rule out atrophic gastritis. Findings: 1. Healed Susu-Murphy tear 2. Fundal Gastritis Impression: 1. Healed Susu-Murphy tear 2. Fundal Gastritis Recommendations: 1. Await pathology 2. Positive for H pylori would treat 3. Patient continue PPI
[2018-03-11] VITALS (7 sets, daily range): BP systolic 131–155; BP diastolic 72–100
--- NOTE | 2018-03-11 07:37 | PN- Housestaff ---
See Addendum Starr Titus 03/11/18 0737: Subjective Follow-up For: 1. DKA 2. GI bleed 3. Alcohol withdrawal Subjective: Patient was seen and examined at bedside. He looked much better than yesterday. He says the pain in the upper part of the abdomen is better. He still has pain in his legs. He does complain of some pain while swallowing. Denies fever, chills, nausea, vomiting, diarrhea. Review of Systems Constitutional: Reports: see HPI. Objective Last 24 Hrs of Vital Signs/I&O Vital Signs Date Time Temp Pulse Resp B/P B/P Pulse O2 O2 Flow FiO2 Mean Ox Delivery Rate 03/11 0631 97.6 60 20 147/96 97 03/11 0230 98.0 60 20 147/96 97 03/10 2226 97.9 56 20 130/80 95 Room Air 03/10 2040 167/97 03/10 1838 70 163/97 03/10 1824 98.0 70 20 163/97 95 Room Air 03/10 1637 97.9 64 20 143/84 95 Room Air 03/10 1600 97.9 64 20 143/84 03/10 1356 98.2 63 20 93 Room Air 03/10 1338 126/84 03/10 1200 98.0 75 20 164/100 03/10 1141 75 164/100 03/10 1016 98.0 75 20 164/100 95 Room Air Intake & Output 03/11 1600 03/11 0800 03/11 0000 Intake Total 840 240 Output Total 2500 1550 Balance -1660 -1310 Intake, IV 600 Intake, Oral 240 240 Intake, TPN/PPN Output, Urine 2500 1550 Physical Exam General Appearance: Alert, Oriented X3, Cooperative, No Acute Distress Skin: No Rashes HEENT: mild pharyngeal erythema Neck: Supple Cardiovascular: Regular Rate, Normal S1, Normal S2, No Murmurs Lungs: Clear to Auscultation Abdomen: Normal Bowel Sounds, Soft, No Tenderness Extremities: No Edema, Normal Pulses Assessment/Plan Assessment: 47 YO M with PMH of anxiety, depression, chronic pain, and type 1 diabetes presented with complaints of nausea, vomiting, diarrhea, and hyperglycemia. Patient was in his normal state of health until Friday evening, when he endorsed having a significant amount of Turkish food, after which he was nauseous and started vomiting. In the ED, patient was found to have significantly elevated glucose (>800), elevated K, UA positive for ketones, lactic acid of 6.1, and VBG , PH of 6.95. He was initially admitted to the ICU for management of DKA. LFTs normal except Alkaline Phosphatse of 190 today. Urinalysis did show ketones with trace proteins, > 1000 glucose, hyaline casts. Transferred from the ICU to the Gen Med Service. We are evaluating and treating him for the following problems: 1. DKA:(RESOLVED) -Due to poorly controlled type 1 DM. -Potassium repleted. Will trend. -Continue insulin NovoLog according to sliding scale subcutaneous. -Continues Levemir 12 units subcutaneous twice a day -His blood sugar level this morning was 257 2. Coffee-ground emesis (Resolved for now) -No fresh episodes of blood in the vomiting for 2 days now. -GI intervention appreciated * EGD performed in the afternoon yesterday and had the following impression: 1. Healed Susu-Murphy tear 2. Fundal Gastritis * Would await pathology * Positive for H.pylori: Started the patient on Amoxicillin 1g BID, Clarithromycin 500 mg BID * Would continue Protonix * Would avoid NSAIDS -Started the patient on CC3 diet today. Tolerating well. -H&H is stable at 11.9 today. -Ordered an EKG this morning: QTc: 433, would follow 3. Chronic pain due to Peripheral Neuropathy -Continue methadone 30 mg daily. -Patient is on Morphine PRN -Would consider standing pain medications if the patient complains of worsening pain 4. Alcohol withdrawal: -Patient reported that he had been drinking alcohol every day. -Continue CIWA protocol, ativan 1 mg when necessary -Ativan tapered to 2mg q8h -Continue thiamine supplementation -His CIWA score this morning was 0 in the morning 5. Elevated blood pressure: -Could be due to alcohol withdrawal or undiagnosed hypertension. - Losartan 25 mg and amlodipine 2.5 mg -Patient has been slightly bradycardic since yesterday -Clonidine 0.1 mg for SBP> 160 and DBP>90 -We'll monitor patient's blood pressure. 6.MELO:(Resolved) -Possibly prerenal and in the setting of using Losartan -On admission his creatinine was 1.6 and BUN was 29 -Today his creatinine is 0.6 and BUN is 4 -Avoid nephrotoxic medications 7.Elevated alkaline phosphatase: -Possibly hepatic in origin but no signs of biliary pathology other than hepatic steatosis. -His ALT/AST and bilirubin levels are within normal limits. - Alkaline phosphatase still high .We will keep monitoring it. 8.History of anxiety and depression: -Holding sertraline and buspirone -Patient is doing well Diet: -CC3 DVT prophylaxis: Mechanical and subcutaneous heparin CODE STATUS: Full code Problem List: 1. Alcohol withdrawal 2. GI bleed 3. Diabetes mellitus 4. Peripheral neuropathy 5. History of depression 6. History of anxiety 7. H/O Susu-Murphy syndrome 8. Gastritis 9. H. pylori infection Pain Ratin Pain Location: legs Pain Goal: Pain 4 or less Pain Plan: pathway Tomorrow's Labs & Rationales: cbc bep and alkaline phosphatase IshVikcy 03/11/18 1109: Attending MD Review Statement Attending Statement Attending MD Statement: examined this patient, discuss w/resident/PA[facility], agreed w/resident/PA[facility], discussed with family, reviewed EMR data (avail), discussed with nursing, discussed with case mgmt, reviewed images, amended to note Attending Assessment/Plan: Patient with significant improvement. He had EGD yesterday suggestive of no acute bleeding but H pylori positive and healed susu murphy tear. Advance diet as tolerated. He is started on Anti H pylori regimen. He is receiving ativan taper 2mg q 8 and thiamine, folic acid. Patient is being followed by endocrinology and GI.
[2018-03-11 08:11] LABS: ABSOLUTE BASOPHIL COUNT 0 /CUMM (0.0-0.2); ABSOLUTE EOSINOPHIL COUNT 0.1 /CUMM (0.0-0.7); ABSOLUTE GRANULOCYTE CT 3.1 /CUMM (1.4-6.5); ABSOLUTE LYMPH COUNT 1.3 /CUMM (1.2-3.4); ABSOLUTE MONOCYTE COUNT 0.3 /CUMM (0.10-0.60); BASOPHIL % 0.6 % (0.0-2.0); EOSINOPHIL % 3.1 % (0-5); GRANULOCYTE % 64.8 % (42.2-75.2); HEMATOCRIT 34.3 % (42-52); MEAN CORPUSCULAR HGB 30.4 PG (27.0-31.0); MEAN CORPUSCULAR HGB CONC 34.5 G/DL (33.0-37.0); MEAN CORPUSCULAR VOLUME 87.9 FL (80.0-94.0); MEAN PLATELET VOLUME 9.2 FL (7.4-10.4); PLATELET COUNT 186 /CUMM (130-400); RBC DISTRIBUTION WIDTH 13.9 % (11.5-14.5); WHITE BLOOD CELL COUNT 4.8 /CUMM (4.8-10.8)
--- NOTE | 2018-03-11 15:27 | PN- Diabetes ---
Assessment/Plan Diabetes Assessment: 47 y/o male who has had diabetes type 1 which was diagnosed 5 years ago ( as per family, his diabetes hasn't been controlled), was put on t slim insulin pump 2 years ago, presented with nausea, vominting and confusion. His glucose level was found to be 853, bicarb , 5, AG 35, ph 6.95. He was admitted to ICU for DKA. His insulin pump settings: Basal rate: midnight 0.95 units per hour; 3 am 1 units per hour; 8 am 1 units per hour; 10 am 1.1 units per hour; 9 pm 0.95 units per hour IC ratio 15 grams insulin sensitivity 50 mg/dl Target of glucose 125 mg/dl active insulin time 4 hours. His DKA resolved. He was put on Levemir 12 units twice a day. Currently he is on D5 1/2 NS at 75 ml/hours, consistent carbohydrates 3 diet and Novolog coverage before meals. His FSGs were 250, 224, 232, 269 and 257. Plan: 1. stop IVF; 2. recommend chaning the diet to consistent carbohydrates 1 diet; 3. continue Levemir 12 units twice a day; 4. adjust Novolog coverage before meal and add Novolog coverage at bedtime-- detail see the inpatient DM orders; 5. monitor FSGs. will follow Inpatient Diabetes Orders Before Each Meal: Bolus Insulin: Novolog < 80 mg/dl: no coverage 80-100 mg/dl: 3 units 101-120 mg/dl: 3 units 121-150 mg/dl: 3 units 151-200 mg/dl: 4 units 201-250 mg/dl: 5 units 251-300 mg/dl: 6 units 301-350 mg/dl: 8 units 351-400 mg/dl: 10 units > 400 mg/dl: 12 units Bedtime: Bolus Insulin: Novolog < 80 mg/dl: no coverage 80-100 mg/dl: no coverage 101-120 mg/dl: no coverage 121-150 mg/dl: no coverage 151-200 mg/dl: no coverage 201-250 mg/dl: no coverage 251-300 mg/dl: 2 units 301-350 mg/dl: 3 units 351-400 mg/dl: 4 units > 400 mg/dl: 5 units Subjective Subjective: He feels better this morning. Objective Last 24 Hrs of Vital Signs/I&O Vital Signs Date Time Temp Pulse Resp B/P B/P Pulse O2 O2 Flow FiO2 Mean Ox Delivery Rate 03/11 1404 98.4 76 18 136/72 94 Room Air 03/11 1000 98.2 65 18 155/100 03/11 0828 60 147/96 03/11 0827 60 147/96 03/11 0827 60 147/96 03/11 0800 97.6 60 20 147/96 03/11 0631 97.6 60 20 147/96 97 03/11 0230 98.0 60 20 147/96 97 03/10 2226 97.9 56 20 130/80 95 Room Air 03/10 2040 167/97 03/10 1838 70 163/97 03/10 1824 98.0 70 20 163/97 95 Room Air 03/10 1637 97.9 64 20 143/84 95 Room Air 03/10 1600 97.9 64 20 143/84 Intake & Output 03/11 1600 03/11 0800 03/11 0000 Intake Total 840 240 Output Total 1150 2500 1550 Balance -1150 -1660 -1310 Intake, IV 600 Intake, Oral 240 240 Intake, TPN/PPN Output, Urine 1150 2500 1550 Findings Pertinent Lab/Pino Results: Laboratory Tests 03/11 03/11 UNK 0620 Chemistry Direct Bilirubin (< 0.4 mg/dL) 0.1 Alkaline Phosphatase (< 127 U/L) 190 H Total Protein (6.3 - 8.2 g/dL) 5.5 L Vitamin B12 Cancelled Hematology CBC w Diff NO MAN DIFF REQ WBC (4.8 - 10.8 /CUMM) 4.8 RBC (4.70 - 6.10 /CUMM) 3.90 L Hgb (14.0 - 18.0 G/DL) 11.9 L Hct (42 - 52 %) 34.3 L MCV (80.0 - 94.0 FL) 87.9 MCH (27.0 - 31.0 PG) 30.4 MCHC (33.0 - 37.0 G/DL) 34.5 RDW (11.5 - 14.5 %) 13.9 Plt Count (130 - 400 /CUMM) 186 MPV (7.4 - 10.4 FL) 9.2 Gran % (42.2 - 75.2 %) 64.8 Lymphocytes % (20.5 - 51.1 %) 26.3 Monocytes % (1.7 - 9.3 %) 5.2 Eosinophils % (0 - 5 %) 3.1 Basophils % (0.0 - 2.0 %) 0.6 Absolute Granulocytes (1.4 - 6.5 /CUMM) 3.1 Absolute Lymphocytes (1.2 - 3.4 /CUMM) 1.3 Absolute Monocytes (0.10 - 0.60 /CUMM) 0.3 Absolute Eosinophils (0.0 - 0.7 /CUMM) 0.1 Absolute Basophils (0.0 - 0.2 /CUMM) 0
--- NOTE | 2018-03-11 16:33 | PN- Gastroenterology ---
Assessment/Plan GI Assessment/Recommendations: ASSESSMENT: 1. Sore Mouth 2. Susu Murphy Tear 3. Alcohol Abuse 4. Diabetes Out of Control RECOMMENDATIONS: 1. We will check B1, B5 and B6 given alcohol abuse patient may have deficiencies in these vitamins and may have stomatitis/glossitis and a sore mouth as a result of this. 2. Will continue PPI on a twice daily basis given Susu-Murphy tear 3. Would encourage formal alcohol abstinence program 4. Would encourage better diabetic control 5. Await pathology results from EGD 6. After discharge patient will need follow-up with GI. Subjective Subjective: Patient reports that he has a sore mouth and that it feels like knives. He does not report that he feels like food gets stuck in the low sternal region. He is unable to eat a turkey sandwich for this reason but is able to eat softer foods. Objective Vital Signs and I&Os Vital Signs Date Time Temp Pulse Resp B/P B/P Pulse O2 O2 Flow FiO2 Mean Ox Delivery Rate 03/11 1600 98.4 83 18 131/78 03/11 1404 98.4 76 18 136/72 94 Room Air 03/11 1000 98.2 65 18 155/100 03/11 0828 60 147/96 03/11 0827 60 147/96 03/11 0827 60 147/96 03/11 0800 97.6 60 20 147/96 03/11 0631 97.6 60 20 147/96 97 03/11 0230 98.0 60 20 147/96 97 03/10 2226 97.9 56 20 130/80 95 Room Air 03/10 2040 167/97 03/10 1838 70 163/97 03/10 1824 98.0 70 20 163/97 95 Room Air 03/10 1637 97.9 64 20 143/84 95 Room Air Intake & Output 03/11 1600 03/11 0400 03/10 1600 03/10 0400 03/09 1600 03/09 0400 Intake Total 140 371 2288 250 2117 1059 Output Total 2750 2450 4675 600 1350 620 Balance -1910 -2210 -2745 -350 767 439 Intake, IV 600 6891 435 2609 1059 Intake, Oral 240 240 80 120 0 Intake, TPN/PPN Number 0 0 Bowel Movements Output, Urine 2750 2450 4675 600 1350 620 Patient 231 lb Weight Physical Exam General Appearance: no apparent distress, alert, awake Head: atraumatic, normal appearance Ears, Nose, Throat: Tongue has a beefy, glossy furrowed appearance Respiratory: lungs clear Abdomen: normal bowel sounds, soft, non-tender, no organomegaly Neurologic/Psychiatric: alert, oriented x 3 Skin: intact, normal color, warm/dry Current Medications: Current Medications Sig/Ami Start time Last Medication Dose Route Stop Time Status Admin Amlodipine Besylate 2.5 MG DAILY 03/09 1712 AC 03/11 PO 0827 Amoxicillin 1,000 MG BID 03/11 0900 DC 03/11 PO 0952 Benzocaine/Menthol 1 TERESA Q2P PRN 03/11 0845 AC 03/11 PO 0952 Clarithromycin 500 MG BID 03/11 09 DC 03/11 PO 0952 Clonidine 0.1 MG DAILY PRN 03/11 0856 AC PO Clonidine 0.1 MG TID 03/10 1023 DC 03/11 PO 0827 Dextrose/Sodium 1,000 ML Q13H 03/10 0830 AC 03/11 Chloride IV 0912 Docusate Sodium 100 MG DAILY 03/10 0921 AC 03/11 PO 0828 Gabapentin 300 MG ONCE ONE 03/11 0245 DC 03/11 PO 03/11 0246 0254 Heparin Sodium 5,000 UNIT Q8 03/08 1400 AC 03/11 (Porcine) SC 1440 Insulin Aspart 0 TIDAC/HS 03/11 1200 AC 03/11 SC 1229 Insulin Aspart 0 TIDAC 03/11 0800 DC 03/11 SC 0829 Insulin Aspart 0 Q4 03/10 1800 CAN SC Insulin Aspart 0 .STK-MED ONE 03/10 1756 DC SC Insulin Detemir 12 UNITS BID 03/09 0900 AC 03/11 SC 0936 Insulin Human Regular 0 Q6 03/10 1200 DC 03/10 SC 1202 Lorazepam 2 MG Q8 03/11 1400 AC 03/11 PO 1439 Lorazepam 2 MG Q6 03/08 2359 DC 03/11 PO 0514 Lorazepam 0 Q1P PRN 03/08 1915 AC 03/10 IV 0830 Losartan Potassium 25 MG DAILY 03/09 1312 AC 03/11 PO 0828 Methadone HCl 30 MG DAILY 03/09 1326 AC 03/11 PO 0826 Nystatin 5 ML 4 TIMES/DAY 03/11 1414 AC PO Ondansetron HCl 4 MG Q6P PRN 03/08 0345 AC 03/09 IV 0208 Pantoprazole Sodium 40 MG BID 03/11 2100 AC IV Pantoprazole Sodium 40 MG DAILY 03/11 09 DC IV Pantoprazole Sodium 40 MG BID 03/08 0400 DC 03/11 IV 0825 Polyethylene Glycol 17 GM DAILY 03/10 920 AC 03/11 PO 08 Senna/Docusate Sodium 2 TAB DAILY 03/10 920 AC 03/11 PO 827 Thiamine HCl 50 MG DAILY 03/09 09 AC 03/11 PO 08 Results Pertinent Lab Results: Laboratory Tests 03/11 03/11 UNK 0620 Chemistry Direct Bilirubin (< 0.4 mg/dL) 0.1 Alkaline Phosphatase (< 127 U/L) 190 H Total Protein (6.3 - 8.2 g/dL) 5.5 L Vitamin B12 Cancelled Hematology CBC w Diff NO MAN DIFF REQ WBC (4.8 - 10.8 /CUMM) 4.8 RBC (4.70 - 6.10 /CUMM) 3.90 L Hgb (14.0 - 18.0 G/DL) 11.9 L Hct (42 - 52 %) 34.3 L MCV (80.0 - 94.0 FL) 87.9 MCH (27.0 - 31.0 PG) 30.4 MCHC (33.0 - 37.0 G/DL) 34.5 RDW (11.5 - 14.5 %) 13.9 Plt Count (130 - 400 /CUMM) 186 MPV (7.4 - 10.4 FL) 9.2 Gran % (42.2 - 75.2 %) 64.8 Lymphocytes % (20.5 - 51.1 %) 26.3 Monocytes % (1.7 - 9.3 %) 5.2 Eosinophils % (0 - 5 %) 3.1 Basophils % (0.0 - 2.0 %) 0.6 Absolute Granulocytes (1.4 - 6.5 /CUMM) 3.1 Absolute Lymphocytes (1.2 - 3.4 /CUMM) 1.3 Absolute Monocytes (0.10 - 0.60 /CUMM) 0.3 Absolute Eosinophils (0.0 - 0.7 /CUMM) 0.1 Absolute Basophils (0.0 - 0.2 /CUMM) 0 03/10 03/09 0725 0425 Chemistry Sodium (137 - 145 mmol/L) 134 L 138 Potassium (3.5 - 5.1 mmol/L) 3.8 4.2 Chloride (98 - 107 mmol/L) 100 110 H Carbon Dioxide (22 - 30 mmol/L) 27 21 L Anion Gap (5 - 16) 7 7 BUN (9 - 20 mg/dL) 4 L 10 Creatinine (0.7 - 1.2 mg/dL) 0.6 L 0.7 Estimated GFR (>60 ml/min) > 60 > 60 Glucose (65 - 99 mg/dL) 140 H 208 H Calcium (8.4 - 10.2 mg/dL) 8.5 8.1 L Phosphorus (2.5 - 4.5 mg/dL) 2.8 2.0 L Magnesium (1.6 - 2.3 mg/dL) 1.6 1.9 Total Bilirubin (0.2 - 1.3 mg/dL) 0.6 0.4 Direct Bilirubin (< 0.4 mg/dL) 0.3 AST (17 - 59 U/L) 70 H 24 ALT (21 - 72 U/L) 55 51 Alkaline Phosphatase (< 127 U/L) 194 H Total Protein (6.3 - 8.2 g/dL) 5.8 L Albumin (3.5 - 5.0 g/dL) 3.2 L 3.1 L Hematology CBC w Diff NO MAN DIFF REQ NO MAN DIFF REQ WBC (4.8 - 10.8 /CUMM) 6.0 7.5 RBC (4.70 - 6.10 /CUMM) 3.95 L 3.72 L Hgb (14.0 - 18.0 G/DL) 11.8 L 11.4 L Hct (42 - 52 %) 34.9 L 33.0 L MCV (80.0 - 94.0 FL) 88.4 88.6 MCH (27.0 - 31.0 PG) 29.8 30.5 MCHC (33.0 - 37.0 G/DL) 33.7 34.4 RDW (11.5 - 14.5 %) 14.5 14.2 Plt Count (130 - 400 /CUMM) 207 231 MPV (7.4 - 10.4 FL) 8.8 8.0 Gran % (42.2 - 75.2 %) 72.1 74.2 Lymphocytes % (20.5 - 51.1 %) 22.1 18.2 L Monocytes % (1.7 - 9.3 %) 4.6 7.2 Eosinophils % (0 - 5 %) 0.3 0.1 Basophils % (0.0 - 2.0 %) 0.9 0.3 Absolute Granulocytes (1.4 - 6.5 /CUMM) 4.4 5.5 Absolute Lymphocytes (1.2 - 3.4 /CUMM) 1.3 1.4 Absolute Monocytes (0.10 - 0.60 /CUMM) 0.3 0.5 Absolute Eosinophils (0.0 - 0.7 /CUMM) 0 0 Absolute Basophils (0.0 - 0.2 /CUMM) 0.1 0 Immunology MARCO Titer ND Anti-Nuclear Antibody (NEG,1:40) NEG 1:40 IFA ASSAY Miscellaneous Ref Lab Test Result (()) REPORT 03/08 6711 Chemistry Sodium (137 - 145 mmol/L) 139 Potassium (3.5 - 5.1 mmol/L) 4.9 Chloride (98 - 107 mmol/L) 110 H Carbon Dioxide (22 - 30 mmol/L) 22 Anion Gap (5 - 16) 7 BUN (9 - 20 mg/dL) 16 Creatinine (0.7 - 1.2 mg/dL) 0.8 Estimated GFR (>60 ml/min) > 60 Glucose (65 - 99 mg/dL) 177 H Calcium (8.4 - 10.2 mg/dL) 7.7 L Phosphorus (2.5 - 4.5 mg/dL) 2.7 Magnesium (1.6 - 2.3 mg/dL) 1.8 Total Bilirubin (0.2 - 1.3 mg/dL) 0.2 AST (17 - 59 U/L) 25 ALT (21 - 72 U/L) 57 Albumin (3.5 - 5.0 g/dL) 3.1 L
[2018-03-12] VITALS (7 sets, daily range): BP systolic 121–148; BP diastolic 60–88
--- NOTE | 2018-03-12 07:11 | PN- Housestaff ---
Starr Titus 03/12/18 0711: Subjective Follow-up For: 1. DKA 2. GI Bleed 3. Sore mouth Subjective: Patient was seen and examined at bedside. He is doing well. He does have a sore mouth and throat with painful swallow. He winces in pain everytime he tries to swallow. He says this started when he first came in to the hospital this Friday. He reports he had been having excessively dry mouth a couple of weeks before. He attributed this to having a lot of pumpkin seeds. The patient was tearful in the morning and said he has been feeling "claustrophobic" since he woke up this morning. He wanted to know if he were so anxious because he is off his usual anxiety medications. Review of Systems Constitutional: Reports: see HPI. Objective Last 24 Hrs of Vital Signs/I&O Vital Signs Date Time Temp Pulse Resp B/P B/P Pulse O2 O2 Flow FiO2 Mean Ox Delivery Rate 03/12 1015 98.2 66 18 140/60 93 Room Air 03/12 0926 78 150/82 03/12 0926 78 150/82 03/12 0619 97.8 58 20 148/84 96 Room Air 03/12 0237 98.1 70 20 132/88 96 Room Air 03/11 2126 98.2 53 18 150/90 93 Room Air 03/11 1600 98.4 83 18 131/78 03/11 1404 98.4 76 18 136/72 94 Room Air Intake & Output 03/12 1600 03/12 0800 03/12 0000 Intake Total 660 420 Output Total 2525 Balance -1865 420 Intake, IV 600 300 Intake, Oral 60 120 Number 0 0 Bowel Movements Output, Urine 2525 Physical Exam General Appearance: Alert, Oriented X3, Cooperative, No Acute Distress HEENT: pharyngeal erythema, beefy red tongue Cardiovascular: Regular Rate, Normal S1, Normal S2 Lungs: Clear to Auscultation Abdomen: Normal Bowel Sounds, Soft, No Tenderness, No Hepatospenomegaly Extremities: No Edema, Normal Pulses Assessment/Plan Assessment: 47 YO M with PMH of anxiety, depression, chronic pain, and type 1 diabetes presented with complaints of nausea, vomiting, diarrhea, and hyperglycemia. Patient was in his normal state of health until Friday evening, when he endorsed having a significant amount of [place] food, after which he was nauseous and started vomiting. In the ED, patient was found to have significantly elevated glucose (>800), elevated K, UA positive for ketones, lactic acid of 6.1, and VBG , PH of 6.95. He was initially admitted to the ICU for management of DKA. LFTs normal except Alkaline Phosphatse of 190 today. Urinalysis did show ketones with trace proteins, > 1000 glucose, hyaline casts. Transferred from the ICU to the Gen Med Service. We are evaluating and treating him for the following problems: 1. DKA:(RESOLVED) -Due to poorly controlled type 1 DM. -Potassium repleted. Will trend. -Continue insulin NovoLog according to sliding scale subcutaneous. -Continues Levemir 12 units subcutaneous twice a day -His blood sugar level this morning was 290 2. Coffee-ground emesis (Resolved for now) -No fresh episodes of blood in the vomiting for 3 days now. -GI intervention appreciated * EGD performed in the afternoon yesterday and had the following impression: 1. Healed Susu-Murphy tear 2. Fundal Gastritis * Would await pathology * If positive for H.pylori, would start the patient on Amoxicillin 1g BID, Clarithromycin 500 mg BID * Would continue Protonix, consider switching to oral Protonix * Would avoid NSAIDS -Changed diet to CC! Tolerating well. -H&H is stable at 11.6 today. -QTc: 433, would follow 3. Chronic pain due to Peripheral Neuropathy -Continue methadone 30 mg daily. -Patient is on Morphine PRN -Would consider standing pain medications if the patient complains of worsening pain 4. Alcohol withdrawal: -Patient reported that he had been drinking alcohol every day. -Continue CIWA protocol, ativan 1 mg when necessary -Ativan tapered to 2mg q12h -Continue thiamine supplementation -His CIWA score this morning was 0 in the morning 5. Elevated blood pressure: -Could be due to alcohol withdrawal or undiagnosed hypertension. - Losartan 25 mg and amlodipine 2.5 mg -Patient has been slightly bradycardic since yesterday -Clonidine 0.1 mg for SBP> 160 and DBP>90 -We'll monitor patient's blood pressure. 6.MELO:(Resolved) -Possibly prerenal and in the setting of using Losartan -On admission his creatinine was 1.6 and BUN was 29 -Today his creatinine is 0.6 and BUN is 7 -Avoid nephrotoxic medications 7.Elevated alkaline phosphatase: -Possibly hepatic in origin but no signs of biliary pathology other than hepatic steatosis. -His ALT/AST and bilirubin levels are within normal limits. - Alkaline phosphatase still high .We will keep monitoring it. 8.History of anxiety and depression: -Holding sertraline and buspirone -Patient is doing well Diet: -CC1 DVT prophylaxis: Mechanical and subcutaneous heparin CODE STATUS: Full code Problem List: 1. Gastritis 2. H/O Susu-Murphy syndrome 3. History of depression 4. History of anxiety 5. Alcohol withdrawal 6. MELO (acute kidney injury) 7. GI bleed Pain Ratin Pain Location: throat Pain Goal: Remain pain free Pain Plan: magic mouth wash Tomorrow's Labs & Rationales: cbc and bep Vicky Deng 03/12/18 1111: Attending MD Review Statement Attending Statement Attending MD Statement: examined this patient, discuss w/resident/PA/WIRE INSULATOR, agreed w/resident/PA/WIRE INSULATOR, discussed with family, reviewed EMR data (avail), discussed with nursing, discussed with case mgmt, reviewed images, amended to note Attending Assessment/Plan: Patient with significant improvement. His sore throat with absent leukocytosis. Provide supportive care. He had EGD 03/10/18 suggestive of no acute bleeding and healed susu murphy tear. Advance diet as tolerated. He is receiving ativan taper 2mg q 12 and thiamine, folic acid. Patient is being followed by endocrinology and GI. Insulin regimen as per endo. He is on his PO methadone. SW consult.
[2018-03-12 08:10] LABS: ABSOLUTE BASOPHIL COUNT 0 /CUMM (0.0-0.2); ABSOLUTE EOSINOPHIL COUNT 0.2 /CUMM (0.0-0.7); ABSOLUTE GRANULOCYTE CT 3.3 /CUMM (1.4-6.5); ABSOLUTE LYMPH COUNT 1.6 /CUMM (1.2-3.4); ABSOLUTE MONOCYTE COUNT 0.3 /CUMM (0.10-0.60); BASOPHIL % 0.5 % (0.0-2.0); EOSINOPHIL % 3.3 % (0-5); GRANULOCYTE % 61.2 % (42.2-75.2); HEMATOCRIT 33.3 % (42-52); MEAN CORPUSCULAR HGB 30.7 PG (27.0-31.0); MEAN CORPUSCULAR VOLUME 87.8 FL (80.0-94.0); MEAN PLATELET VOLUME 8.6 FL (7.4-10.4); PLATELET COUNT 219 /CUMM (130-400); RED BLOOD CELL CT 3.79 /CUMM (4.70-6.10); WHITE BLOOD CELL COUNT 5.4 /CUMM (4.8-10.8)
--- NOTE | 2018-03-12 08:44 | PN- Diabetes ---
Assessment/Plan Diabetes Assessment: 47 y/o male who has had diabetes type 1 which was diagnosed 5 years ago ( as per family, his diabetes hasn't been controlled), was put on t slim insulin pump 2 years ago, presented with nausea, vominting and confusion. His glucose level was found to be 853, bicarb , 5, AG 35, ph 6.95. He was admitted to ICU for DKA. His insulin pump settings: Basal rate: midnight 0.95 units per hour; 3 am 1 units per hour; 8 am 1 units per hour; 10 am 1.1 units per hour; 9 pm 0.95 units per hour IC ratio 15 grams insulin sensitivity 50 mg/dl Target of glucose 125 mg/dl active insulin time 4 hours. His DKA resolved. He was put on Levemir 12 units twice a day, carbohydrates 1 diet, Novolog coverage before meals and Novolog coverage at bedtime. Before Each Meal: Bolus Insulin: Novolog < 80 mg/dl: no coverage 80-100 mg/dl: 3 units 101-120 mg/dl: 3 units 121-150 mg/dl: 3 units 151-200 mg/dl: 4 units 201-250 mg/dl: 5 units 251-300 mg/dl: 6 units 301-350 mg/dl: 8 units 351-400 mg/dl: 10 units > 400 mg/dl: 12 units Bedtime: Bolus Insulin: Novolog < 80 mg/dl: no coverage 80-100 mg/dl: no coverage 101-120 mg/dl: no coverage 121-150 mg/dl: no coverage 151-200 mg/dl: no coverage 201-250 mg/dl: no coverage 251-300 mg/dl: 2 units 301-350 mg/dl: 3 units 351-400 mg/dl: 4 units > 400 mg/dl: 5 units His FSGs were 257, 276, 290 and 91. Plan: continue the current insulin regimen for now; monitor FSGs. will follow. Subjective Subjective: He still has difficulty in swallowing. Objective Last 24 Hrs of Vital Signs/I&O Vital Signs Date Time Temp Pulse Resp B/P B/P Pulse O2 O2 Flow FiO2 Mean Ox Delivery Rate 03/12 0619 97.8 58 20 148/84 96 Room Air 03/12 0237 98.1 70 20 132/88 96 Room Air 03/116 98.2 53 18 150/90 93 Room Air 03/11 1600 98.4 83 18 131/78 03/11 1404 98.4 76 18 136/72 94 Room Air 03/11 1000 98.2 65 18 155/100 Intake & Output 03/12 1600 03/12 0800 03/12 0000 Intake Total 420 Output Total 2525 Balance -2525 420 Intake, IV 300 Intake, Oral 120 Number 0 Bowel Movements Output, Urine 2525 Findings Pertinent Lab/Pino Results: Laboratory Tests 03/12 03/12 03/11 0720 0720 1600 Chemistry Sodium (137 - 145 mmol/L) 134 L Potassium (3.5 - 5.1 mmol/L) 3.8 Chloride (98 - 107 mmol/L) 100 Carbon Dioxide (22 - 30 mmol/L) 28 Anion Gap (5 - 16) 6 BUN (9 - 20 mg/dL) 7 L Creatinine (0.7 - 1.2 mg/dL) 0.6 L Estimated GFR (>60 ml/min) > 60 BUN/Creatinine Ratio (7 - 25 %) 11.7 Alkaline Phosphatase (< 127 U/L) 193 H Whole Bld Vitamin B1 Pending Vitamin B12 (239 - 931 pg/mL) Pending Cancelled Hematology CBC w Diff NO MAN DIFF REQ WBC (4.8 - 10.8 /CUMM) 5.4 RBC (4.70 - 6.10 /CUMM) 3.79 L Hgb (14.0 - 18.0 G/DL) 11.6 L Hct (42 - 52 %) 33.3 L MCV (80.0 - 94.0 FL) 87.8 MCH (27.0 - 31.0 PG) 30.7 MCHC (33.0 - 37.0 G/DL) 35.0 RDW (11.5 - 14.5 %) 14.0 Plt Count (130 - 400 /CUMM) 219 MPV (7.4 - 10.4 FL) 8.6 Gran % (42.2 - 75.2 %) 61.2 Lymphocytes % (20.5 - 51.1 %) 29.4 Monocytes % (1.7 - 9.3 %) 5.6 Eosinophils % (0 - 5 %) 3.3 Basophils % (0.0 - 2.0 %) 0.5 Absolute Granulocytes (1.4 - 6.5 /CUMM) 3.3 Absolute Lymphocytes (1.2 - 3.4 /CUMM) 1.6 Absolute Monocytes (0.10 - 0.60 /CUMM) 0.3 Absolute Eosinophils (0.0 - 0.7 /CUMM) 0.2 Absolute Basophils (0.0 - 0.2 /CUMM) 0 03/11 UNK Chemistry Vitamin B12 Cancelled
--- NOTE | 2018-03-12 10:27 | Discharge Summary ---
Hospital Course Allergies: Coded Allergies: No Known Allergies (03/07/18)
[2018-03-13 05:30] VITALS: BP 160/100
--- NOTE | 2018-03-13 07:15 | PN- Housestaff ---
TachoStarr 03/13/18 0715: Subjective Follow-up For: GI bleed Strep throat Subjective: Patient was seen and examined at bedside. He continues to complain about pain in his throat and pain in his legs from the peripheral neuropathy. He says his pain is only relieved with Tramadol or Dilaudid. His diet was advanced to a regular diet but he has only been able to swallow clears becuase of the pain. Review of Systems Constitutional: Reports: see HPI. Objective Last 24 Hrs of Vital Signs/I&O Vital Signs Date Time Temp Pulse Resp B/P B/P Pulse O2 O2 Flow FiO2 Mean Ox Delivery Rate 03/14 1132 168/98 03/14 1130 168/98 03/14 0816 170/94 03/14 0816 170/94 03/14 0800 96 Room Air 03/14 0408 98.3 64 20 146/94 94 03/13 2238 166/90 03/13 2206 98.2 58 19 166/90 94 Room Air 03/13 1527 97.9 75 18 130/82 95 03/13 1330 138/84 Intake & Output 03/14 1600 03/14 0800 03/14 0000 Intake Total 210 850 Output Total 450 800 Balance -240 50 Intake, IV 10 10 Intake, Oral 200 840 Output, Urine 450 800 Physical Exam General Appearance: Alert, Oriented X3, Cooperative, No Acute Distress HEENT: b/l pharyngeal erythema and exudates Cardiovascular: Regular Rate, Normal S1, Normal S2 Lungs: Clear to Auscultation Abdomen: Normal Bowel Sounds, Soft, No Tenderness Vascular: Normal Pulses, Pulses Symmetrical Assessment/Plan Assessment: 47 YO M with PMH of anxiety, depression, chronic pain, and type 1 diabetes presented with complaints of nausea, vomiting, diarrhea, and hyperglycemia. Patient was in his normal state of health until Friday evening, when he endorsed having a significant amount of [place] food, after which he was nauseous and started vomiting. In the ED, patient was found to have significantly elevated glucose (>800), elevated K, UA positive for ketones, lactic acid of 6.1, and VBG , PH of 6.95. He was initially admitted to the ICU for management of DKA. LFTs normal except Alkaline Phosphatse of 190 today. Urinalysis did show ketones with trace proteins, > 1000 glucose, hyaline casts. Transferred from the ICU to the Gen Med Service. We are evaluating and treating him for the following problems: 1. DKA:(RESOLVED) -Due to poorly controlled type 1 DM. -Potassium repleted. Will trend. -Continue insulin NovoLog according to sliding scale subcutaneous. -Continues Levemir 12 units subcutaneous twice a day 2. Coffee-ground emesis (Resolved for now) -No fresh episodes of blood in the vomiting for 3 days now. -GI intervention appreciated * EGD performed in the afternoon yesterday and had the following impression: 1. Healed Susu-Murphy tear 2. Fundal Gastritis * Would await pathology * If positive for H.pylori, would start the patient on Amoxicillin 1g BID, Clarithromycin 500 mg BID * Would continue Protonix, consider switching to oral Protonix * Would avoid NSAIDS -Changed diet to CC! Tolerating well. -H&H is stable at 11.6 today. -QTc: 433, would follow 3. Chronic pain due to Peripheral Neuropathy -Continue methadone 30 mg daily. -Patient is on Morphine PRN -Would consider standing pain medications if the patient complains of worsening pain 4. Alcohol withdrawal: -Patient reported that he had been drinking alcohol every day. -Continue CIWA protocol, ativan 1 mg when necessary -Ativan tapered to 2mg q12h -Continue thiamine supplementation -His CIWA score this morning was 0 in the morning 5. Elevated blood pressure: -Could be due to alcohol withdrawal or undiagnosed hypertension. - Losartan 25 mg and amlodipine 2.5 mg -Patient has been slightly bradycardic since yesterday -Clonidine 0.1 mg for SBP> 160 and DBP>90 -We'll monitor patient's blood pressure. 6.MELO:(Resolved) -Possibly prerenal and in the setting of using Losartan -On admission his creatinine was 1.6 and BUN was 29 -Today his creatinine is 0.6 and BUN is 7 -Avoid nephrotoxic medications 7.Elevated alkaline phosphatase: -Possibly hepatic in origin but no signs of biliary pathology other than hepatic steatosis. -His ALT/AST and bilirubin levels are within normal limits. - Alkaline phosphatase still high .We will keep monitoring it. 8.History of anxiety and depression: -Home meds re-started -Patient is doing well 7. Strep Throat -Bilateral pharyngeal erythema adn exudates -RSAT positve -Patient has been having symptoms for more than a week -Started on Amoxicillin Diet: -CC1 DVT prophylaxis: Mechanical and subcutaneous heparin CODE STATUS: Full code Problem List: 1. Gastritis 2. H/O Susu-Murphy syndrome 3. Diabetes mellitus 4. Peripheral neuropathy 5. History of depression 6. History of anxiety 7. Alcohol withdrawal Pain Ratin Pain Location: throat Chronic pain in legs: unchanged Pain Goal: Remain pain free Pain Plan: pathway Methadone Tomorrow's Labs & Rationales: cbc and bep Mitchell Dengannia 03/13/18 1130: Attending MD Review Statement Attending Statement Attending MD Statement: examined this patient, discuss w/resident/PA/ROLLER SKATER, agreed w/resident/PA/ROLLER SKATER, discussed with family, reviewed EMR data (avail), discussed with nursing, discussed with case mgmt, reviewed images, amended to note Attending Assessment/Plan: Patient seen/examined bedside. Patient with no new complaints. He received taper for alcohol withdrawal. His blood sugars are more acceptable. SW appreciated and he is probable discharge on Friday to sober house.
[2018-03-13 08:21] LABS: ABSOLUTE BASOPHIL COUNT 0 /CUMM (0.0-0.2); ABSOLUTE EOSINOPHIL COUNT 0.1 /CUMM (0.0-0.7); ABSOLUTE LYMPH COUNT 1.8 /CUMM (1.2-3.4); ABSOLUTE MONOCYTE COUNT 0.4 /CUMM (0.10-0.60); BASOPHIL % 0.5 % (0.0-2.0); EOSINOPHIL % 2.3 % (0-5); GRANULOCYTE % 55.5 % (42.2-75.2); HEMATOCRIT 32.7 % (42-52); MEAN CORPUSCULAR HGB 30.2 PG (27.0-31.0); MEAN CORPUSCULAR HGB CONC 34.4 G/DL (33.0-37.0); MEAN CORPUSCULAR VOLUME 87.9 FL (80.0-94.0); MEAN PLATELET VOLUME 9.1 FL (7.4-10.4); PLATELET COUNT 268 /CUMM (130-400); RBC DISTRIBUTION WIDTH 13.9 % (11.5-14.5); RED BLOOD CELL CT 3.71 /CUMM (4.70-6.10); WHITE BLOOD CELL COUNT 5.4 /CUMM (4.8-10.8)
--- NOTE | 2018-03-13 09:42 | PN- Diabetes ---
Assessment/Plan Diabetes Assessment: 47 y/o male who has had diabetes type 1 which was diagnosed 5 years ago ( as per family, his diabetes hasn't been controlled), was put on t slim insulin pump 2 years ago, presented with nausea, vominting and confusion. His glucose level was found to be 853, bicarb , 5, AG 35, ph 6.95. He was admitted to ICU for DKA. His insulin pump settings: Basal rate: midnight 0.95 units per hour; 3 am 1 units per hour; 8 am 1 units per hour; 10 am 1.1 units per hour; 9 pm 0.95 units per hour IC ratio 15 grams insulin sensitivity 50 mg/dl Target of glucose 125 mg/dl active insulin time 4 hours. His DKA resolved. He was put on Levemir 12 units twice a day, carbohydrates 1 diet, Novolog coverage before meals and Novolog coverage at bedtime. Before Each Meal: Bolus Insulin: Novolog < 80 mg/dl: no coverage 80-100 mg/dl: 3 units 101-120 mg/dl: 3 units 121-150 mg/dl: 3 units 151-200 mg/dl: 4 units 201-250 mg/dl: 5 units 251-300 mg/dl: 6 units 301-350 mg/dl: 8 units 351-400 mg/dl: 10 units > 400 mg/dl: 12 units Bedtime: Bolus Insulin: Novolog < 80 mg/dl: no coverage 80-100 mg/dl: no coverage 101-120 mg/dl: no coverage 121-150 mg/dl: no coverage 151-200 mg/dl: no coverage 201-250 mg/dl: no coverage 251-300 mg/dl: 2 units 301-350 mg/dl: 3 units 351-400 mg/dl: 4 units > 400 mg/dl: 5 units His FSGs were 91, 154, 207 and 152. He has had sore throat and was diagnosed with strep throat, was put on oral amoxicillin. Plan: continue the current insulin regimen for now; monitor FSGs. will follow. Subjective Subjective: He still has sore throat. Objective Last 24 Hrs of Vital Signs/I&O Vital Signs Date Time Temp Pulse Resp B/P B/P Pulse O2 O2 Flow FiO2 Mean Ox Delivery Rate 03/13 0530 98.0 60 20 160/100 96 Room Air 03/13 0514 160/100 03/12 2227 98.1 66 20 121/83 96 03/12 1804 98.4 78 20 124/70 92 03/12 1800 98.4 78 20 124/70 03/12 1356 98.2 81 20 128/88 95 Room Air 03/12 1015 98.2 66 18 140/60 93 Room Air Intake & Output 03/13 1600 03/13 0800 03/13 0000 Intake Total 480 320 Output Total 1600 375 Balance -1120 -55 Intake, IV 20 Intake, Oral 480 300 Output, Urine 1600 375 Findings Pertinent Lab/Pino Results: Laboratory Tests 03/13 0725 Chemistry Sodium (137 - 145 mmol/L) 137 Potassium (3.5 - 5.1 mmol/L) 4.4 Chloride (98 - 107 mmol/L) 101 Carbon Dioxide (22 - 30 mmol/L) 28 Anion Gap (5 - 16) 7 BUN (9 - 20 mg/dL) 6 L Creatinine (0.7 - 1.2 mg/dL) 0.7 Estimated GFR (>60 ml/min) > 60 BUN/Creatinine Ratio (7 - 25 %) 8.6 Hematology CBC w Diff NO MAN DIFF REQ WBC (4.8 - 10.8 /CUMM) 5.4 RBC (4.70 - 6.10 /CUMM) 3.71 L Hgb (14.0 - 18.0 G/DL) 11.2 L Hct (42 - 52 %) 32.7 L MCV (80.0 - 94.0 FL) 87.9 MCH (27.0 - 31.0 PG) 30.2 MCHC (33.0 - 37.0 G/DL) 34.4 RDW (11.5 - 14.5 %) 13.9 Plt Count (130 - 400 /CUMM) 268 MPV (7.4 - 10.4 FL) 9.1 Gran % (42.2 - 75.2 %) 55.5 Lymphocytes % (20.5 - 51.1 %) 33.5 Monocytes % (1.7 - 9.3 %) 8.2 Eosinophils % (0 - 5 %) 2.3 Basophils % (0.0 - 2.0 %) 0.5 Absolute Granulocytes (1.4 - 6.5 /CUMM) 3.0 Absolute Lymphocytes (1.2 - 3.4 /CUMM) 1.8 Absolute Monocytes (0.10 - 0.60 /CUMM) 0.4 Absolute Eosinophils (0.0 - 0.7 /CUMM) 0.1 Absolute Basophils (0.0 - 0.2 /CUMM) 0
[2018-03-13 13:30] VITALS: BP 138/84
[2018-03-13 15:27] VITALS: BP 130/82
[2018-03-13 22:06] VITALS: BP 166/90
[2018-03-14 04:08] VITALS: BP 146/94
[2018-03-14 08:35] LABS: ABSOLUTE BASOPHIL COUNT 0.1 /CUMM (0.0-0.2); ABSOLUTE EOSINOPHIL COUNT 0.2 /CUMM (0.0-0.7); ABSOLUTE GRANULOCYTE CT 2.4 /CUMM (1.4-6.5); ABSOLUTE LYMPH COUNT 2.3 /CUMM (1.2-3.4); ABSOLUTE MONOCYTE COUNT 0.6 /CUMM (0.10-0.60); EOSINOPHIL % 2.8 % (0-5); GRANULOCYTE % 43.5 % (42.2-75.2); HEMATOCRIT 33.7 % (42-52); MEAN CORPUSCULAR HGB 30.2 PG (27.0-31.0); MEAN CORPUSCULAR HGB CONC 34.3 G/DL (33.0-37.0); MEAN PLATELET VOLUME 8.9 FL (7.4-10.4); PLATELET COUNT 310 /CUMM (130-400); RBC DISTRIBUTION WIDTH 13.7 % (11.5-14.5); RED BLOOD CELL CT 3.83 /CUMM (4.70-6.10); WHITE BLOOD CELL COUNT 5.5 /CUMM (4.8-10.8)
--- NOTE | 2018-03-14 08:36 | PN- Housestaff ---
Divya العلي 03/14/18 0836: Subjective Follow-up For: #1 Diabetes mellitus #2 coffee-ground emesisresolved #3 alcohol detox #4 hypertension #5 acute kidney injury - resolved #6 Methadone maintanance Subjective: Patient is seen and examined. He is doing well. He continues to report of throat pain. Denies any fever/chills/dyspnea/chest pain/abdominal discomfort/burning micturition. He does report of difficulty sleeping at night. Patient is started back on the psych meds. Review of Systems Constitutional: Reports: see HPI. Objective Last 24 Hrs of Vital Signs/I&O Vital Signs Date Time Temp Pulse Resp B/P B/P Pulse O2 O2 Flow FiO2 Mean Ox Delivery Rate 03/14 1132 168/98 03/14 1130 168/98 03/14 0816 170/94 03/14 0816 170/94 03/14 0800 96 Room Air 03/14 0408 98.3 64 20 146/94 94 03/13 2238 166/90 03/13 2206 98.2 58 19 166/90 94 Room Air 03/13 1527 97.9 75 18 130/82 95 Intake & Output 03/14 1600 03/14 0800 03/14 0000 Intake Total 210 850 Output Total 450 800 Balance -240 50 Intake, IV 10 10 Intake, Oral 200 840 Output, Urine 450 800 Physical Exam General Appearance: Alert, Oriented X3, Cooperative, No Acute Distress Skin: No Rashes HEENT: Atraumatic Neck: Supple Cardiovascular: Regular Rate, Normal S1, Normal S2 Lungs: Clear to Auscultation, Normal Air Movement Abdomen: Normal Bowel Sounds, Soft, No Tenderness Extremities: No Cyanosis, No Edema Current Medications: Current Medications Sig/Ami Start time Last Medication Dose Route Stop Time Status Admin Amlodipine Besylate 10 MG DAILY 03/15 09 UNVr PO Amlodipine Besylate 5 MG ONCE ONE 03/14 1200 UNVr PO 03/14 1201 Amlodipine Besylate 5 MG DAILY 03/13 0900 DC 03/14 PO 0816 Amoxicillin 500 MG BID 03/12 2315 AC 03/14 PO 0812 Benzocaine/Menthol 1 TERESA Q2P PRN 03/11 0845 AC 03/14 PO 1121 Clonidine 0.1 MG Q6P PRN 03/13 1330 AC 03/14 PO 1132 Clonidine 0.1 MG DAILY PRN 03/11 0856 DC 03/13 PO 0514 Docusate Sodium 100 MG DAILY 03/10 0921 AC 03/14 PO 0812 Heparin Sodium 5,000 UNIT Q8 03/08 1400 AC 03/14 (Porcine) SC 0524 Ibuprofen 600 MG Q6P PRN 03/13 1500 AC 03/14 PO 0524 Insulin Aspart 0 TIDAC/HS 03/11 1200 AC 03/13 SC 1643 Insulin Detemir 12 UNITS DAILY 03/15 0900 UNVr SC Insulin Detemir 5 UNITS AT BEDTIME 03/14 2100 UNVr SC Insulin Detemir 12 UNITS BID 03/09 0900 DC 03/14 SC 0821 Lorazepam 1.5 MG Q12 03/14 2100 UNVr PO Lorazepam 2 MG Q12 03/13 0900 DC 03/14 PO 0813 Lorazepam 0 Q1P PRN 03/08 1915 AC 03/10 IV 0830 Losartan Potassium 25 MG DAILY 03/09 1312 AC 03/14 PO 0816 Methadone HCl 30 MG DAILY 03/09 1326 AC 03/14 PO 0813 Nystatin 5 ML 4 TIMES/DAY 03/11 1414 AC 03/13 PO 2138 Omeprazole 40 MG BID 03/13 0900 AC 03/14 PO 0816 Ondansetron HCl 4 MG Q6P PRN 03/08 0345 AC 03/12 IV 1430 Patient Own 1 UNIT BID PRN 03/12 0915 AC 03/12 Medication PO 1213 Phenol 2 SPRAY Q2P PRN 03/13 0230 AC 03/14 EXT 1006 Polyethylene Glycol 17 GM DAILY 03/10 09 AC 03/13 PO 0922 Senna/Docusate Sodium 2 TAB DAILY 03/10 0920 AC 03/14 PO 0816 Sertraline HCl 150 MG DAILY 03/13 0931 AC 03/14 PO 0813 Thiamine HCl 50 MG DAILY 03/09 0900 AC 03/14 PO 0816 Last 24 Hrs of Lab/Pino Results Last 24 Hrs of Labs/Mics: Laboratory Tests 03/14/18 0722: Anion Gap 6, Estimated GFR > 60, BUN/Creatinine Ratio 10.0, CBC w Diff NO MAN DIFF REQ, RBC 3.83 L, MCV 88.0, MCH 30.2, MCHC 34.3, RDW 13.7, MPV 8.9, Gran % 43.5, Lymphocytes % 42.3, Monocytes % 10.4 H, Eosinophils % 2.8, Basophils % 1.0, Absolute Granulocytes 2.4, Absolute Lymphocytes 2.3, Absolute Monocytes 0.6 , Absolute Eosinophils 0.2, Absolute Basophils 0.1 Assessment/Plan Assessment: 47 YO M with PMH of anxiety, depression, chronic pain, and type 1 diabetes presented with complaints of nausea, vomiting, diarrhea, and hyperglycemia. Patient was in his normal state of health until Amari evening, when he endorsed having a significant amount of French food, after which he was nauseous and started vomiting. In the ED, patient was found to have significantly elevated glucose (>800), elevated K, UA positive for ketones, lactic acid of 6.1, and VBG , PH of 6.95. He was initially admitted to the ICU for management of DKA. LFTs normal except Alkaline Phosphatse of 190 today. Urinalysis did show ketones with trace proteins, > 1000 glucose, hyaline casts. Transferred from the ICU to the Gen Med Service. Problem list #1 Diabetes mellitus #2 coffee-ground emesisresolved #3 alcohol detox #4 hypertension #5 acute kidney injury - resolved #6 Methadone maintanance Assessment and plan Patient is on low-dose NovoLog sliding scale, morning blood sugar was 87, patient was evaluated by endocrinology, they recommend a decrease in his nighttime Levemir to 5 units and can continue 12 units in the morning. Patient continues to be hypertensive, blood pressure this morning 168/98, is on clonidine, amlodipine 5 mg and losartan 25 mg daily. Pulses stable from 64 - 75. Can consider increasing amlodipine to 10 mg daily for her blood pressure. Patient is on Ativan for alcohol withdrawal, CIWA score 0 - 5, scoring on anxiety and agitation. Patient did not require any as needed Ativan since 03/10. Can decrease Ativan to 1.5 mg every 12hrs. Will continue multivitamins. Patient has a positive quick strep, will continue amoxicillin. We will continue patient on omeprazole, sertraline, nystatin swish and swallow, methadone, Pain management with ibuprofen, Tylenol, DVT prophylaxis subcutaneous heparin Patient is full code Problem List: 1. Diabetes mellitus Pain Ratin Pain Location: throat Pain Goal: Pain 4 or less Pain Plan: Ibuprofen Tomorrow's Labs & Rationales: no labs Dexter JEFFERS,Amir 03/14/18 1244: Attending MD Review Statement Attending Statement Attending MD Statement: examined this patient, discuss w/resident/PA/NET FINISHER, agreed w/resident/PA/NET FINISHER, reviewed EMR data (avail), discussed with nursing Attending Assessment/Plan: Pt was seen and evalauted. Reports eating OK. However, having difficulty sleeping. Reports Trazdone helped him --cont CIWA prtcolol --awaiting safe disposition --rest of the plan as per resident's note
--- NOTE | 2018-03-14 10:38 | PN- Diabetes ---
Assessment/Plan Diabetes Assessment: 47 y/o male who has had diabetes type 1 which was diagnosed 5 years ago ( as per family, his diabetes hasn't been controlled), was put on t slim insulin pump 2 years ago, presented with nausea, vominting and confusion. His glucose level was found to be 853, bicarb , 5, AG 35, ph 6.95. He was admitted to ICU for DKA. His insulin pump settings: Basal rate: midnight 0.95 units per hour; 3 am 1 units per hour; 8 am 1 units per hour; 10 am 1.1 units per hour; 9 pm 0.95 units per hour IC ratio 15 grams insulin sensitivity 50 mg/dl Target of glucose 125 mg/dl active insulin time 4 hours. His DKA resolved.. Plan: Please reduce night time Levemir to 5 units, continue AM levemir of 12 units and continue the same dose for Novolog Will follow Subjective Subjective: His BG went down from 179 to 67 overnight, despite no Novolog given last night. Objective Last 24 Hrs of Vital Signs/I&O Vital Signs Date Time Temp Pulse Resp B/P B/P Pulse O2 O2 Flow FiO2 Mean Ox Delivery Rate 03/14 0816 170/94 03/14 0816 170/94 03/14 0800 96 Room Air 03/14 0408 98.3 64 20 146/94 94 03/13 2238 166/90 03/13 2206 98.2 58 19 166/90 94 Room Air 03/13 1527 97.9 75 18 130/82 95 03/13 1330 138/84 Intake & Output 03/14 1600 03/14 0800 03/14 0000 Intake Total 210 850 Output Total 450 800 Balance -240 50 Intake, IV 10 10 Intake, Oral 200 840 Output, Urine 450 800
[2018-03-14 11:30] VITALS: BP 168/98
[2018-03-14 14:56] VITALS: BP 130/80
[2018-03-14 22:00] VITALS: BP 173/94
[2018-03-14 23:38] VITALS: BP 173/94
[2018-03-15 06:41] VITALS: BP 152/84
[2018-03-15 08:00] VITALS: BP 150/80
--- NOTE | 2018-03-15 08:42 | PN- Housestaff ---
Divya العلي 03/15/18 0842: Subjective Follow-up For: #1 Diabetes mellitus #2 coffee-ground emesisresolved #3 alcohol detox #4 hypertension #5 acute kidney injury - resolved #6 Methadone maintanance Subjective: Patient is seen and examined, resting comfortably in the bed. Patient states that he feels well overall but throat continues to hurt. He was started back on his psych meds yesterday. Patient denies any fever/ chills/dyspnea/chest pain/abdominal discomfort/burning micturition. Review of Systems Constitutional: Reports: see HPI. Objective Last 24 Hrs of Vital Signs/I&O Vital Signs Date Time Temp Pulse Resp B/P B/P Pulse O2 O2 Flow FiO2 Mean Ox Delivery Rate 03/15 0839 150/80 03/15 0834 150/80 03/15 0800 150/80 03/15 0800 96 Room Air 03/15 0641 97.9 55 20 152/84 98 Room Air 03/14 2338 98.4 62 20 173/94 97 Room Air 03/14 2259 62 174/94 03/14 2200 98.4 62 20 173/94 03/14 1456 98.2 64 20 130/80 95 Room Air 03/14 1411 130/80 Intake & Output 03/15 1600 03/15 0800 03/15 0000 Intake Total 250 510 Output Total 600 750 Balance -350 -240 Intake, IV 10 10 Intake, Oral 240 500 Output, Urine 600 750 Physical Exam General Appearance: Alert, Oriented X3, Cooperative, No Acute Distress Skin: No Rashes HEENT: THROAT IS ERTHEMATOUS Neck: Supple Cardiovascular: Regular Rate, Normal S1, Normal S2 Lungs: Clear to Auscultation, Normal Air Movement Abdomen: Normal Bowel Sounds, Soft Extremities: No Edema Current Medications: Current Medications Sig/Ami Start time Last Medication Dose Route Stop Time Status Admin Amlodipine Besylate 10 MG DAILY 03/15 0900 AC 03/15 PO 0839 Amoxicillin 500 MG BID 03/14 2100 AC 03/15 PO 0816 Amoxicillin 500 MG BID 03/12 2315 DC 03/14 PO 0812 Benzocaine/Menthol 1 TERESA Q2P PRN 03/11 0845 AC 03/15 PO 1137 Buspirone HCl 30 MG BID 03/14 1218 AC 03/15 PO 0819 Clonidine 0.1 MG Q6P PRN 03/13 1330 AC 03/14 PO 2259 Docusate Sodium 100 MG DAILY 03/10 0921 AC 03/14 PO 0812 Heparin Sodium 5,000 UNIT Q8 03/08 1400 AC 03/15 (Porcine) SC 0620 Ibuprofen 600 MG Q6P PRN 03/13 1500 AC 03/15 PO 1137 Insulin Aspart 0 TIDAC/HS 03/11 1200 AC 03/15 SC 0829 Insulin Detemir 12 UNITS DAILY 03/15 0900 AC 03/15 SC 0828 Insulin Detemir 5 UNITS AT BEDTIME 03/14 2100 AC 03/14 SC 2133 Lorazepam 1.5 MG Q12 03/14 2100 AC 03/15 PO 0817 Lorazepam 0 Q1P PRN 03/08 1915 AC 03/10 IV 0830 Losartan Potassium 25 MG DAILY 03/09 1312 AC 03/15 PO 0834 Methadone HCl 30 MG DAILY 03/09 1326 AC 03/15 PO 0817 Nystatin 5 ML 4 TIMES/DAY 03/11 1414 AC 03/15 PO 0825 Omeprazole 40 MG BID 03/13 0900 AC 03/15 PO 0820 Ondansetron HCl 4 MG Q6P PRN 03/08 0345 AC 03/15 IV 0838 Patient Own 1 UNIT BID PRN 03/12 0915 AC 03/12 Medication PO 1213 Phenol 2 SPRAY Q2P PRN 03/13 0230 AC 03/15 EXT 1137 Polyethylene Glycol 17 GM DAILY 03/10 0920 AC 03/13 PO 0922 Senna/Docusate Sodium 2 TAB DAILY 03/10 09 AC 03/14 PO 0816 Sertraline HCl 150 MG DAILY 03/13 0931 AC 03/15 PO 0822 Thiamine HCl 50 MG DAILY 03/09 0900 AC 03/15 PO 0822 Tramadol HCl 50 MG ONCE ONE 03/14 2145 DC 03/14 PO 03/14 2146 2241 Valproic Acid 500 MG TID 03/14 1400 AC 03/15 PO 0823 Last 24 Hrs of Lab/Pino Results Last 24 Hrs of Labs/Mics: ABOVE Assessment/Plan Assessment: 47 YO M with PMH of anxiety, depression, chronic pain, and type 1 diabetes presented with complaints of nausea, vomiting, diarrhea, and hyperglycemia. Patient was in his normal state of health until Friday evening, when he endorsed having a significant amount of Yoruba food, after which he was nauseous and started vomiting. In the ED, patient was found to have significantly elevated glucose (>800), elevated K, UA positive for ketones, lactic acid of 6.1, and VBG , PH of 6.95. He was initially admitted to the ICU for management of DKA. LFTs normal except Alkaline Phosphatse of 190 today. Urinalysis did show ketones with trace proteins, > 1000 glucose, hyaline casts. Transferred from the ICU to the [facility] Med [facility]. Problem list #1 Diabetes mellitus #2 coffee-ground emesisresolved #3 alcohol detox #4 hypertension #5 acute kidney injury - resolved #6 Methadone maintanance Assessment and plan Blood sugars running between [id number] overnight. Patient was evaluated by endocrinology, we will increase the nighttime Levemir to 7 units and continue the same oral dose for morning. For hypertension patient is on clonidine, amlodipine 10 mg and losartan 25 mg daily. We will continue to monitor on this regimen. Patient is on Ativan for alcohol withdrawal, CIWA score 0 - 5, scoring on anxiety and agitation. Patient did not require any as needed Ativan since 03/10. Can decrease Ativan to 1 mg every 12hrs. Will continue multivitamins. Patient has a positive quick strep, will continue amoxicillin. We will continue patient on omeprazole, sertraline, nystatin swish and swallow, methadone, Pain management with ibuprofen, Tylenol, DVT prophylaxis subcutaneous heparin Patient is full code Problem List: 1. Alcohol withdrawal Pain Ratin Pain Location: NONE Pain Goal: Pain 4 or less Pain Plan: TYLENOL PRN FOR PAIN Tomorrow's Labs & Rationales: NONE Dexter JEFFERS,Ludmila 03/15/18 1057: Attending MD Review Statement Attending Statement Attending MD Statement: examined this patient, discuss w/resident/PA/UTILITY DRIVER, agreed w/resident/PA/UTILITY DRIVER, reviewed EMR data (avail), discussed with nursing Attending Assessment/Plan: Reports sleeping well last night. No overnight issues --obtain private Neuro records as pt reprots taking baclofen and Valproic acid for his neuropathy --rest of the plan as per resident's note
--- NOTE | 2018-03-15 11:10 | PN- Diabetes ---
Assessment/Plan Diabetes Assessment: 47 y/o male who has had diabetes type 1 which was diagnosed 5 years ago ( as per family, his diabetes hasn't been controlled), was put on t slim insulin pump 2 years ago, presented with nausea, vominting and confusion. His glucose level was found to be 853, bicarb , 5, AG 35, ph 6.95. He was admitted to ICU for DKA. His insulin pump settings: Basal rate: midnight 0.95 units per hour; 3 am 1 units per hour; 8 am 1 units per hour; 10 am 1.1 units per hour; 9 pm 0.95 units per hour IC ratio 15 grams insulin sensitivity 50 mg/dl Target of glucose 125 mg/dl active insulin time 4 hours. His DKA resolved. Plan: Please increase the night time Levemir to 7 units Change Novolog coverage as belows Will follow Inpatient Diabetes Orders Before Each Meal: < 80 mg/dl: 0 80-100 mg/dl: 4 101-120 mg/dl: 4 121-150 mg/dl: 4 151-200 mg/dl: 5 201-250 mg/dl: 6 251-300 mg/dl: 7 301-350 mg/dl: 8 351-400 mg/dl: 9 > 400 mg/dl: 10 Bedtime: < 80 mg/dl: 0 80-100 mg/dl: 0 101-120 mg/dl: 0 121-150 mg/dl: 0 151-200 mg/dl: 1 201-250 mg/dl: 2 251-300 mg/dl: 3 301-350 mg/dl: 4 351-400 mg/dl: 5 > 400 mg/dl: 6 Subjective Subjective: BG between 170-290 over the last 24 hours Objective Last 24 Hrs of Vital Signs/I&O Vital Signs Date Time Temp Pulse Resp B/P B/P Pulse O2 O2 Flow FiO2 Mean Ox Delivery Rate 03/15 0839 150/80 03/15 0834 150/80 03/15 0800 150/80 03/15 0800 96 Room Air 03/15 0641 97.9 55 20 152/84 98 Room Air 03/14 2338 98.4 62 20 173/94 97 Room Air 03/14 2259 62 174/94 03/14 2200 98.4 62 20 173/94 03/14 1456 98.2 64 20 130/80 95 Room Air 03/14 1411 130/80 03/14 1132 168/98 03/14 1130 168/98 Intake & Output 03/15 1600 03/15 0800 03/15 0000 Intake Total 250 510 Output Total 600 750 Balance -350 -240 Intake, IV 10 10 Intake, Oral 240 500 Output, Urine 600 750
[2018-03-15] MEDS ORDERED: BACLOFEN10 M1 PO (12:18)
[2018-03-15 14:19] VITALS: BP 129/79
[2018-03-15 18:38] VITALS: BP 129/75
[2018-03-15 21:20] VITALS: BP 136/100
[2018-03-16 02:06] VITALS: BP 136/88
[2018-03-16 02:13] VITALS: BP 136/88
[2018-03-16 06:28] VITALS: BP 120/64
[2018-03-16 06:30] VITALS: BP 124/64
[2018-03-16 08:00] VITALS: BP 140/98
--- NOTE | 2018-03-16 08:33 | PN- Housestaff ---
Starr Titus 03/16/18 0833: Subjective Follow-up For: GI bleed Strep throat Subjective: Patient was seen and examined at bedside. He still complains about pain in his throat. He appears to be doing well otherwise. He denies fever, chills, nausea, vomiting, diarrhea. He would be going to the sober home today. Review of Systems Constitutional: Reports: see HPI. Objective Last 24 Hrs of Vital Signs/I&O Vital Signs Date Time Temp Pulse Resp B/P B/P Pulse O2 O2 Flow FiO2 Mean Ox Delivery Rate 03/16 0828 140/96 03/16 0828 140/96 03/16 0800 98.1 74 20 140/98 03/16 0800 98.1 74 20 140/98 03/16 0800 96 Room Air 03/16 0630 97.7 78 18 124/64 03/16 0628 97.7 78 18 120/64 95 03/16 0213 98.1 67 18 136/88 03/16 0206 98.1 67 18 136/88 96 03/15 2120 97.6 57 20 136/100 97 Room Air 03/15 1838 98.7 63 19 129/75 96 Room Air 03/15 1419 97.7 70 18 129/79 95 Room Air Intake & Output 03/16 1600 03/16 0800 03/16 0000 Intake Total 500 Output Total 1000 525 925 Balance -1000 -525 -425 Intake, Oral 500 Number 1 Bowel Movements Output, Urine 1000 525 925 Weight Measurement Method Physical Exam General Appearance: Alert, Oriented X3, Cooperative HEENT: throat erythema Cardiovascular: Regular Rate, Normal S1, Normal S2 Lungs: Clear to Auscultation Abdomen: Normal Bowel Sounds, Soft, No Tenderness Assessment/Plan Assessment: 47 YO M with PMH of anxiety, depression, chronic pain, and type 1 diabetes presented with complaints of nausea, vomiting, diarrhea, and hyperglycemia. Patient was in his normal state of health until Friday evening, when he endorsed having a significant amount of Faroese food, after which he was nauseous and started vomiting. In the ED, patient was found to have significantly elevated glucose (>800), elevated K, UA positive for ketones, lactic acid of 6.1, and VBG , PH of 6.95. He was initially admitted to the ICU for management of DKA. LFTs normal except Alkaline Phosphatse of 190 today. Urinalysis did show ketones with trace proteins, > 1000 glucose, hyaline casts. Transferred from the ICU to the [facility] Med Service. We are evaluating and treating him for the following problems: 1.Diabetes Mellitus -Endocrine input appreciated * Patient's insulin dose was modified accordingly * The patient is being discharged on insulin pump with settings as recommended by 2. Coffee-ground emesis (Resolved for now) -GI intervention appreciated * EGD had the following impression 1. Healed Susu-Murphy tear 2. Fundal Gastritis * Would await pathology * The patient is being discharged home on Omeprazole * Would avoid NSAIDS 3. Chronic pain due to Peripheral Neuropathy -Continue methadone 30 mg daily. -He is being discharged on Methadone maintainence to sober home today 4. Alcohol withdrawal: -Patient reported that he had been drinking alcohol every day. -The patient has been consistently scoring low on the CIWA scale. -We discontinue the Ativan for the patient before discharge 5. Elevated blood pressure: -The patient apparently had undiagnosed hypertension. He is doing well on Losartan 25 mg and amlodipine 10mg daily. He is being discharged on the same medications 6.MELO:(Resolved) -Possibly prerenal and in the setting of using Losartan -On admission his creatinine was 1.6 and BUN was 29 -Avoid nephrotoxic medications 7.Elevated alkaline phosphatase: -Possibly hepatic in origin but no signs of biliary pathology other than hepatic steatosis. -His ALT/AST and bilirubin levels are within normal limits. - Alkaline phosphatase still high. The patient was advised to follow up on that as an outpatient 8.History of anxiety and depression: -Home meds re-started -Patient is doing well 7. Strep Throat -Bilateral pharyngeal erythema adn exudates -RSAT positve -Patient has been having symptoms for more than a week -Started on Amoxicillin, cotinue at discharge Diet: -CC1 DVT prophylaxis: Mechanical and subcutaneous heparin CODE STATUS: Full code Problem List: 1. Gastritis 2. H/O Susu-Murphy syndrome 3. Diabetes mellitus 4. Peripheral neuropathy 5. History of depression 6. History of anxiety 7. Alcohol withdrawal Pain Ratin Pain Location: throat Pain Goal: Remain pain free Pain Plan: Tylenol Tomorrow's Labs & Rationales: none Vicky Deng 03/16/18 1131: Attending MD Review Statement Attending Statement Attending MD Statement: examined this patient, discuss w/resident/PA/FOOD PROCESSING CHEMIST, agreed w/resident/PA/FOOD PROCESSING CHEMIST, discussed with family, reviewed EMR data (avail), discussed with nursing, discussed with case mgmt, reviewed images, amended to note Attending Assessment/Plan: Patient denies any new complaints. Patient can be discharged to sober house today. Insulin management as per endocrinology.
[2018-03-16 09:03] LABS: ABSOLUTE BASOPHIL COUNT 0 /CUMM (0.0-0.2); ABSOLUTE EOSINOPHIL COUNT 0.1 /CUMM (0.0-0.7); ABSOLUTE GRANULOCYTE CT 2.4 /CUMM (1.4-6.5); ABSOLUTE LYMPH COUNT 2.4 /CUMM (1.2-3.4); ABSOLUTE MONOCYTE COUNT 0.4 /CUMM (0.10-0.60); BASOPHIL % 0.7 % (0.0-2.0); GRANULOCYTE % 44.8 % (42.2-75.2); HEMATOCRIT 33.7 % (42-52); MEAN CORPUSCULAR HGB 30.3 PG (27.0-31.0); MEAN CORPUSCULAR HGB CONC 34.5 G/DL (33.0-37.0); MEAN CORPUSCULAR VOLUME 87.8 FL (80.0-94.0); MEAN PLATELET VOLUME 8.6 FL (7.4-10.4); PLATELET COUNT 396 /CUMM (130-400); RBC DISTRIBUTION WIDTH 14.3 % (11.5-14.5); RED BLOOD CELL CT 3.84 /CUMM (4.70-6.10); WHITE BLOOD CELL COUNT 5.5 /CUMM (4.8-10.8)
--- NOTE | 2018-03-16 10:51 | PN- Diabetes ---
Assessment/Plan Diabetes Assessment: 47 y/o male who has had diabetes type 1 which was diagnosed 5 years ago ( as per family, his diabetes hasn't been controlled), was put on t slim insulin pump 2 years ago, presented with nausea, vominting and confusion. His glucose level was found to be 853, bicarb , 5, AG 35, ph 6.95. He was admitted to ICU for DKA. His insulin pump settings: Basal rate: midnight 0.95 units per hour; 3 am 1 units per hour; 8 am 1 units per hour; 10 am 1.1 units per hour; 9 pm 0.95 units per hour IC ratio 15 grams insulin sensitivity 50 mg/dl Target of glucose 125 mg/dl active insulin time 4 hours. His DKA resolved. Currently he is on Levemir 12 units at 9 am and 7 units at bedtime. Novolog coverage before meals and Novolog coverage at bedtime; Before Each Meal: < 80 mg/dl: 0 80-100 mg/dl: 3 101-120 mg/dl: 3 121-150 mg/dl: 3 151-200 mg/dl: 4 201-250 mg/dl: 5 251-300 mg/dl: 6 301-350 mg/dl: 8 351-400 mg/dl: 10 > 400 mg/dl: 12 Bedtime: < 80 mg/dl: 0 80-100 mg/dl: 0 101-120 mg/dl: 0 121-150 mg/dl: 0 151-200 mg/dl: 0 201-250 mg/dl: 2 251-300 mg/dl: 3 301-350 mg/dl: 4 351-400 mg/dl: 5 > 400 mg/dl: 6 His FSGs were 67, 87, 170, 212, 211, 289, 157, 221, 210 and 150. Plan: -continue the current insulin regimen for now in hospital; -after he is discharged, he will restart insulin pump with his previous settings ; as he will receive Levemir 12 units this morning, the risk of having hypoglycemia overnight tonight was discussed. I have recommend having snack at bedtime if his FSG is < 150; -f/u with his sweet pickle maker after he is discharged. Subjective Subjective: He feels better. Objective Last 24 Hrs of Vital Signs/I&O Vital Signs Date Time Temp Pulse Resp B/P B/P Pulse O2 O2 Flow FiO2 Mean Ox Delivery Rate 03/16 0828 140/96 03/16 0828 140/96 03/16 0800 98.1 74 20 140/98 03/16 0800 98.1 74 20 140/98 03/16 0800 96 Room Air 03/16 0630 97.7 78 18 124/64 03/16 0628 97.7 78 18 120/64 95 03/16 0213 98.1 67 18 136/88 03/16 0206 98.1 67 18 136/88 96 03/15 2120 97.6 57 20 136/100 97 Room Air 03/15 1838 98.7 63 19 129/75 96 Room Air 03/15 1419 97.7 70 18 129/79 95 Room Air Intake & Output 03/16 1600 03/16 0800 03/16 0000 Intake Total 500 Output Total 300 525 925 Balance -300 -525 -425 Intake, Oral 500 Number 1 Bowel Movements Output, Urine 300 525 925 Weight Measurement Method Findings Pertinent Lab/Pino Results: Laboratory Tests 03/16 0710 Chemistry Sodium (137 - 145 mmol/L) 135 L Potassium (3.5 - 5.1 mmol/L) 4.7 Chloride (98 - 107 mmol/L) 101 Carbon Dioxide (22 - 30 mmol/L) 27 Anion Gap (5 - 16) 7 BUN (9 - 20 mg/dL) 9 Creatinine (0.7 - 1.2 mg/dL) 0.6 L Estimated GFR (>60 ml/min) > 60 BUN/Creatinine Ratio (7 - 25 %) 15.0 Hematology CBC w Diff NO MAN DIFF REQ WBC (4.8 - 10.8 /CUMM) 5.5 RBC (4.70 - 6.10 /CUMM) 3.84 L Hgb (14.0 - 18.0 G/DL) 11.6 L Hct (42 - 52 %) 33.7 L MCV (80.0 - 94.0 FL) 87.8 MCH (27.0 - 31.0 PG) 30.3 MCHC (33.0 - 37.0 G/DL) 34.5 RDW (11.5 - 14.5 %) 14.3 Plt Count (130 - 400 /CUMM) 396 MPV (7.4 - 10.4 FL) 8.6 Gran % (42.2 - 75.2 %) 44.8 Lymphocytes % (20.5 - 51.1 %) 44.3 Monocytes % (1.7 - 9.3 %) 8.2 Eosinophils % (0 - 5 %) 2.0 Basophils % (0.0 - 2.0 %) 0.7 Absolute Granulocytes (1.4 - 6.5 /CUMM) 2.4 Absolute Lymphocytes (1.2 - 3.4 /CUMM) 2.4 Absolute Monocytes (0.10 - 0.60 /CUMM) 0.4 Absolute Eosinophils (0.0 - 0.7 /CUMM) 0.1 Absolute Basophils (0.0 - 0.2 /CUMM) 0
[2018-03-16] MEDS ORDERED: CHLORASEPTIC S1 EACH PO (11:14)
[2018-03-16] MEDS ORDERED: LOSARTAN POTASS25 M1 PO (11:14)
[2018-03-16] MEDS ORDERED: NORVASC10 M1 PO (11:15)
[2018-03-16] MEDS ORDERED: OMEPRAZOLE20 M2 PO (11:39)
--- NOTE | 2018-03-16 11:40 | Patient Discharge Instructions ---
Discharge Instructions General Discharge Information You were seen/treated for: Diabetic Ketoacidosis Gastritis You had these procedures: Esophagogastroduodenoscopy (EGD) with biopsy Special Instructions: 1. Please schedule an apoointment with an ENt doctor if pain on swallowing does not get better. 2. Please call Dr. Cho's office to schedule an appointment regarding pathology results for your endoscopy and for further management of your Gastrointestinal symptoms. 3. Please schedule an appointment with your primary care doctor within a week of your discharge. Acute Coronary Syndrome Inclusion Criteria At DC or during hospital stay patient has or had the following: ACS DIAGNOSIS No Discharge Core Measures Meds if any: Prescribed or Continued at Discharge Meds if any: NOT Prescribed or Continued at Discharge Congestive Heart Failure Inclusion Criteria At DC or during hospital stay patient has or had the following: CHF DIAGNOSIS No Discharge Core Measures Meds if any: Prescribed or Continued at Discharge Meds if any: NOT Prescribed or Continued at Discharge Cerebrovascular accident Inclusion Criteria At DC or during hospital stay patient has or had the following: CVA/TIA Diagnosis No Discharge Core Measures Meds if any: Prescribed or Continued at Discharge Meds if any: NOT Prescribed or Continued at Discharge Venous thromboembolism Inclusion Criteria VTE Diagnosis No VTE Type NONE VTE Confirmed by (Test) NONE Discharge Core Measures - Per Current guidelines, there needs to be overlap - treatment for the first 5 days of Warfarin therapy. - If discharged on Warfarin prior to 5 days of - overlap therapy, the patient will need to be - assessed for post discharge needs including - *Post discharge parental anticoagulation - *Warfarin and/or parental anticoagulation education - *Follow up date to check INR post discharge At least 5 days overlap therapy as Inpatient No Meds if any: Prescribed or Continued at Discharge Note: Overlap Therapy is Warfarin and Anticoagulant Meds if any: NOT Prescribed or Continued at Discharge
[2018-03-16] MEDS ORDERED: NOVOLOG100 UNIT/2 SC (11:52)
[2018-03-16] MEDS ORDERED: AMOXICILLIN500 M2 PO (13:43)
[2018-03-16 14:20] VITALS: BP 120/80
== END 2018-03-16 17:33 | disposition home health service (06) | DRG 637 ==
LOC: ERH 23:34 → ERHI 03-08 00:40 → CRI 03-08 00:40 → 2NB 03-08 00:40 → ENRESERV 03-08 01:59 → CRI 03-08 03:42 → 2NB 03-09 20:17 → ENPENDDIS 03-16 12:02 → ENTRNSPT 03-16 16:45 → CMPTRNSPT 03-16 17:15 → 2NB 03-16 17:33
PROVIDERS: Hospitalist; Internal Medicine; Physician Assistant; Preventive Medicine Public Health & General Preventive Medicine; Student in an Organized Health Care Education/Training Program
PROC: 0DD68ZX Extraction of Stomach, Via Natural or Artificial Opening Endoscopic, Diagnostic (ICD-10-PCS; principal; 2018-03-10)
DX: E10.10 Type 1 diabetes mellitus with ketoacidosis without coma (principal); K22.6 Gastro-esophageal laceration-hemorrhage syndrome; E87.1 Hypo-osmolality and hyponatremia; K92.0 Hematemesis; N17.9 Acute kidney failure, unspecified; T85.624A Displacement of insulin pump, initial encounter; F10.239 Alcohol dependence with withdrawal, unspecified; D62 Acute posthemorrhagic anemia; Z79.4 Long term (current) use of insulin; R74.0 Nonspecific elevation of levels of transaminase and lactic acid dehydrogenase [LDH]; Z96.41 Presence of insulin pump (external) (internal); F41.9 Anxiety disorder, unspecified; F32.9 Major depressive disorder, single episode, unspecified; E87.5 Hyperkalemia; E86.0 Dehydration; E10.42 Type 1 diabetes mellitus with diabetic polyneuropathy; G89.29 Other chronic pain; E83.39 Other disorders of phosphorus metabolism; E83.41 Hypermagnesemia; K76.0 Fatty (change of) liver, not elsewhere classified; Y90.0 Blood alcohol level of less than 20 mg/100 ml; F11.90 Opioid use, unspecified, uncomplicated; I10 Essential (primary) hypertension; K29.60 Other gastritis without bleeding; F17.210 Nicotine dependence, cigarettes, uncomplicated; R00.0 Tachycardia, unspecified; J02.0 Streptococcal pharyngitis
CPT/HCPCS: 2NBP; 2NBSP; 84133; 84300; 86255; CCU; 36415; 36592; 71045; 74176; 80307; 81001; 82436; 82570; 84425; 87015; 87040; 87045; 87086; 87328; 87329; 87899; 87899-59; 88305; 88312; 93005; 93010; 97112-GO; 97116-GO; 97161-GP; 97530-GO; G0480; J0131; J0610; J0696; J1644; J1815; J2405; J2550; J2765; J3490; J7042; J7060